=== PATIENT | male | born 1995 | race African-American/Black ===

== ENCOUNTER 2018-01-06 13:17 | Emergency (ER) | payer SELFPAY ==
[2018-01-06 13:23] VITALS: BP 116/76
[2018-01-06] MEDS ORDERED: OXYCODONE-ACETAMINOPHEN 5-325 MG TABLET PO ONE (13:34)
--- NOTE | 2018-01-06 13:35 | ER Document Report ---
ED Oral Problem - General Chief Complaint: Toothache Stated Complaint: TOOTH PAIN Time Seen by Provider: 01/06/18 13:28 Mode of Arrival: Ambulatory Information source: Patient Notes: Patient is a 22-year-old male who presents to the ER today for left lower wisdom tooth pain. Patient states that it has been broken for approximately 9 months. He admits to pain, denies any swelling, drainage from the area. He states that he came here to have it pulled as he does not have dental insurance. He denies any fevers or chills. TRAVEL OUTSIDE OF THE [place] IN LAST 30 DAYS: No - Related Data Allergies/Adverse Reactions: hydrocodone [Hydrocodone] Allergy (Verified 01/06/18 13:18) Nausea Past Medical History - General Information source: Patient - Social History Smoking Status: Unknown if Ever Smoked Family History: Reviewed & Not Pertinent - Immunizations Hx Diphtheria, Pertussis, Tetanus Vaccination: Yes Review of Systems - Review of Systems Constitutional: No symptoms reported EENT: See HPI Cardiovascular: No symptoms reported Respiratory: No symptoms reported Gastrointestinal: No symptoms reported Genitourinary: No symptoms reported Male Genitourinary: No symptoms reported Musculoskeletal: No symptoms reported Skin: No symptoms reported Hematologic/Lymphatic: No symptoms reported Neurological/Psychological: No symptoms reported Physical Exam - Vital signs Vitals: Temp Pulse Resp BP Pulse Ox 98.7 F 67 14 116/76 98 01/06/18 13:22 01/06/18 13:22 01/06/18 13:22 01/06/18 13:22 01/06/18 13:22 - Notes Notes: PHYSICAL EXAMINATION: GENERAL: Well-appearing and in no acute distress. HEAD: Atraumatic, normocephalic. EYES: Pupils equal round and reactive to light, extraocular movements intact, sclera anicteric, conjunctiva are normal. ENT: ear canals without erythema or foreign body, TMs pearly valladares with good bony landmarks, nares patent, oropharynx clear without exudates. Moist mucous membranes. Poor dentition, fractured tooth #18 NECK: Normal range of motion, supple without lymphadenopathy LUNGS: CTAB and equal. No wheezes rales or rhonchi. HEART: Regular rate and rhythm without murmurs EXTREMITIES: Normal range of motion, no pitting edema. No cyanosis. NEUROLOGICAL: Cranial nerves grossly intact. Normal sensory/motor exams. PSYCH: Normal mood, normal affect. SKIN: Warm, Dry, normal turgor, no rashes or lesions noted Course - Re-evaluation Re-evalutation: 01/06/18 14:48 I did advise patient that we are not a dentist and cannot pull teeth. He seemed confused at first. I did provide him information for the [facility] and advised him to follow-up there. He agrees with plan. I will place him on antibiotics and provide him with anti-inflammatories for pain. - Vital Signs Vital signs: Temp Pulse Resp BP Pulse Ox 98.7 F 67 14 116/76 98 01/06/18 13:22 01/06/18 13:22 01/06/18 13:22 01/06/18 13:22 01/06/18 13:22 Discharge - Discharge Clinical Impression: Pain, dental Condition: Stable Disposition: HOME, SELF-CARE Additional Instructions: Return immediately for any new or worsening symptoms. Follow up with dentist, call tomorrow to make followup appointment. Prescriptions: Amoxicillin 500 mg PO TID #30 capsule Ibuprofen [Motrin 800 mg Tablet] 800 mg PO Q8H PRN #30 tab PRN Reason: Referrals: [facility] [Provider Group] - Follow up as needed
== END 2018-01-06 13:43 | disposition home or self-care (01) ==
LOC: ER 13:17
DX: K08.89 Other specified disorders of teeth and supporting structures (principal); Z88.5 Allergy status to narcotic agent
CPT/HCPCS: 99282

== ENCOUNTER 2018-02-01 18:23 | Emergency (ER) | payer SELFPAY ==
[2018-02-01] MEDS ORDERED: LORATADINE 10 MG TABLET PO ONE (18:43)
--- NOTE | 2018-02-01 18:45 | ER Document Report ---
ED Skin Rash/Insect Bite/Abscs - General Chief Complaint: Rash Stated Complaint: RASH Time Seen by Provider: 02/01/18 18:36 Mode of Arrival: Ambulatory Information source: Patient TRAVEL OUTSIDE OF THE [place] IN LAST 30 DAYS: No - HPI Patient complains to provider of: Skin rash/lesion Notes: Patient is here with complaints of itching. The patient was seen early last month for her left lower dental pain. He was prescribed penicillin. He finally got it filled about a week ago and started taking it. States that yesterday he started to have some itching and a rash. States that the rash seems to be worse and more itchy when he is around heat. No difficulty breathing or swallowing. No abdominal pain. No nausea, vomiting, diarrhea. No chest pain or shortness of breath. He denies taking any daily medications. He denies any chronic health issues. He has not taken any other medications. He denies any difficulty breathing or swallowing. He has no other complaints at this time. - Related Data Allergies/Adverse Reactions: No Known Allergies Allergy (Verified 02/01/18 18:28) Past Medical History - Social History Smoking Status: Unknown if Ever Smoked Family History: Reviewed & Not Pertinent Renal/ Medical History: Denies: Hx Peritoneal Dialysis - Immunizations Hx Diphtheria, Pertussis, Tetanus Vaccination: Yes Review of Systems - Review of Systems -: Yes All other systems reviewed and negative Physical Exam - Vital signs Vitals: Temp Pulse Resp BP Pulse Ox 99.1 F 74 18 140/78 H 95 02/01/18 18:28 02/01/18 18:28 02/01/18 18:28 02/01/18 18:28 02/01/18 18:28 - Notes Notes: GENERAL: alert, cooperative, nontoxic, no distress. HEAD: normocephalic, atraumatic EYES: conjunctiva pink without discharge, no external redness or swelling. EARS: no external swelling, no external redness NOSE: atraumatic, no external swelling MOUTH/THROAT: mucous membranes moist and pink, posterior pharynx without erythema, swelling, exudate. No trismus or drooling. NECK: soft, supple, full range of motion, no meningismus. CHEST: no distress, lungs clear and equal throughout. No wheezing, rales, rhonchi. CARDIAC: regular rate and rhythm, no murmur, normal capillary refill, normal pulses. No peripheral edema noted. ABDOMEN: Soft, nontender. BACK: full range of motion, no CVA tenderness. EXTREMITIES: full range of motion of all extremities. No redness, no swelling. NEURO: alert and oriented x 3, no focal deficits, full range of motion of all extremities. PYSCH: appropriate mood, affect. Patient is cooperative. SKIN: pink, warm, dry, petechial rash in a linear fashion to the arms, chest, abdomen, back consistent with scratching. No purpura. No vesicles. Course - Re-evaluation Re-evalutation: 02/01/18 19:28 Patient is nontoxic appearing with stable vitals. Here with complaints of itching. Started penicillin 6 days ago states that he started itching yesterday. Patient is noted to have some petechial lesions in a linear fashion consistent with scratching hard. I did order a CBC and coags to ensure that there was no coagulopathy or thrombocytopenia taking place at this time. Lab work is unremarkable. Patient is potentially have an allergic reaction to the penicillin. I instructed him to stop taking the penicillin. He has no obvious signs of infection at this time, therefore do not believe any further antibiotics are needed. He will be given prednisone for the next few days as well as instructed to take an antihistamine like Benadryl or Claritin for itching. Follow-up if not improving in the next 3-5 days, sooner for worsening symptoms, high fever, difficulty breathing or swallowing, or for any further concerns. The patient is noted to have elevated blood pressure during today's emergency department visit. The patient was informed of this finding. The patient was instructed that this may be related to pre-hypertension and requires further evaluation with a primary care provider. The patient has no hypertensive symptoms at this time. The patient's emergency department workup and current diagnosis were explained to the patient and or family. Follow-up instructions were provided. Medications if prescribed were discussed. Instructions for when to return to the emergency department including specific worrisome symptoms were discussed with the patient and/or family. - Vital Signs Vital signs: Temp Pulse Resp BP Pulse Ox 99.1 F 74 18 140/78 H 95 02/01/18 18:28 02/01/18 18:28 02/01/18 18:28 02/01/18 18:28 02/01/18 18:28 - Laboratory Result Diagrams: 02/01/18 18:50 Laboratory results interpreted by me: 02/01/18 18:50 RBC 5.62 H RDW 14.2 H Discharge - Discharge Clinical Impression: Allergic reaction Qualifiers: Encounter type: initial encounter Qualified Code(s): T78.40XA - Allergy, unspecified, initial encounter Condition: Stable Disposition: HOME, SELF-CARE Instructions: Acute Allergic Reaction ([facility]) Additional Instructions: Stop taking the antibiotics. Take medications as prescribed. Take over-the- counter Benadryl or Claritin as directed. Follow-up if not better in 3-5 days, sooner for worsening symptoms, high fever, difficulty breathing or swallowing, or for any further concerns. Prescriptions: Prednisone [Deltasone 20 mg Tablet] 3 tab PO DAILY 5 Days tablet Forms: Elevated Blood Pressure, Smoking Cessation Education Referrals: [facility] [Provider Group] - Follow up as needed
[2018-02-01 19:06] LABS: ABSOLUTE EOSINOPHILS # (AUTO) 0.5 10^3/uL (0.0-0.6); ABSOLUTE LYMPHOCYTES (AUTO) 2.3 10^3/uL (0.5-4.7); ABSOLUTE MONOCYTES (AUTO) 0.9 10^3/uL (0.1-1.4); ABSOLUTE NEUT (AUTO) 5.5 10^3/uL (1.7-8.2); BASOPHILS % (AUTO) 0.5 % (0-2); EOSINOPHILS % (AUTO) 5.6 % (0-6); HEMATOCRIT 47.2 % (37.9-51.0); HEMOGLOBIN 16.3 g/dL (13.5-17.0); LYMPHOCYTES % (AUTO) 24.6 % (13-45); MEAN CORPUSCULAR HEMOGLOBIN 28.9 pg (27.0-33.4); MEAN CORPUSCULAR HGB CONC 34.5 g/dL (32.0-36.0); MEAN CORPUSCULAR VOLUME 84 fl (80-97); MONOCYTES % (AUTO) 9.6 % (3-13); PLATELET COUNT 233 10^3/uL (150-450); RED BLOOD COUNT 5.62 10^6/uL (4.35-5.55); RED CELL DISTRIBUTION WIDTH 14.2 % (11.5-14.0); SEGMENTED NEUTROPHILS % (AUTO) 59.7 % (42-78); TOTAL CELLS COUNTED % (AUTO) 100 %; WHITE BLOOD COUNT 9.2 10^3/uL (4.0-10.5)
[2018-02-01 19:12] LABS: INTERNATIONAL RATION (INR) 1.01; PROTHROMBIN TIME 13.8 SEC (11.4-15.4)
[2018-02-01 19:13] LABS: PARTIAL THROMBOPLASTIN TIME 29.3 SEC (23.5-35.8)
[2018-02-01] MEDS ORDERED: PREDNISONE 20 MG TABLET PO ONE (19:29)
[2018-02-01 20:06] VITALS: BP 136/84
== END 2018-02-01 20:15 | disposition home or self-care (01) ==
LOC: ER 18:23
DX: T78.40XA Allergy, unspecified, initial encounter (principal); L29.9 Pruritus, unspecified; X58.XXXA Exposure to other specified factors, initial encounter; R23.3 Spontaneous ecchymoses; R03.0 Elevated blood-pressure reading, without diagnosis of hypertension
CPT/HCPCS: 99283; 36415; 85025; 85610; 85730; J7512

== ENCOUNTER 2018-02-06 11:59 | Emergency (ER) | payer SELFPAY ==
[2018-02-06 12:12] VITALS: BP 109/68
--- NOTE | 2018-02-06 12:13 | ER Document Report ---
HPI - HPI Patient complains to provider of: tooth pain Onset: Last week Onset/Duration: Gradual Pain Level: 4 Context: 22 yo male with throbbing tooth pain. No swelling. Associated Symptoms: None Exacerbated by: Denies Relieved by: Denies Similar symptoms previously: Yes Recently seen / treated by doctor: No - ROS ROS below otherwise negative: Yes Systems Reviewed and Negative: Yes All other systems reviewed and negative Past Medical History - General Information source: Patient - Social History Smoking Status: Current Every Day Smoker Frequency of alcohol use: None Drug Abuse: None Lives with: Family Family History: Reviewed & Not Pertinent - Medical History Medical History: Negative Renal/ Medical History: Denies: Hx Peritoneal Dialysis Surgical Hx: Negative - Immunizations Hx Diphtheria, Pertussis, Tetanus Vaccination: Yes Vertical Provider Document - CONSTITUTIONAL Agree With Documented VS: Yes Exam Limitations: No Limitations General Appearance: No Apparent Distress - INFECTION CONTROL TRAVEL OUTSIDE OF THE [place] IN LAST 30 DAYS: No - HEENT HEENT: Normocephalic Notes: 3rd left lower molar dental decay with inflamed gingiva. no abscess - MUSCULOSKELETAL/EXTREMETIES Musculoskeletal/Extremeties: MAEW - NEURO Level of Consciousness: Awake - DERM Integumentary: No Rash Course - Vital Signs Vital signs: Temp Pulse Resp BP Pulse Ox 98.9 F 65 16 109/68 95 02/06/18 12:10 02/06/18 12:10 02/06/18 12:10 02/06/18 12:10 02/06/18 12:10 Discharge - Discharge Clinical Impression: 3rd left molar decay/pain Condition: Good Disposition: HOME, SELF-CARE Instructions: [facility], Clindamycin (COUNTS INCLUDE 234 BEDS AT THE [facility]), Dentist, Ibuprofen ( General) (COUNTS INCLUDE 234 BEDS AT THE [facility]), Toothache (COUNTS INCLUDE 234 BEDS AT THE [facility]) Additional Instructions: warm compress clindamycin see the dentist motrin tylenol Prescriptions: Ibuprofen [Motrin 800 mg Tablet] 800 mg PO Q8HP PRN #30 tablet PRN Reason: Clindamycin HCl [Cleocin 150 mg Capsule] 300 mg PO TID #42 capsule Forms: Return to Work
[2018-02-06] MEDS ORDERED: IBUPROFEN 800 MG TABLET PO ONE (12:33)
== END 2018-02-06 12:37 | disposition home or self-care (01) ==
LOC: ER 11:59
DX: K02.9 Dental caries, unspecified (principal); K08.89 Other specified disorders of teeth and supporting structures; F17.200 Nicotine dependence, unspecified, uncomplicated
CPT/HCPCS: 99282

== ENCOUNTER 2018-04-07 05:07 | Emergency (ER) | payer SELFPAY ==
[2018-04-07 05:52] LABS: APPEARANCE,URINE CLEAR; BILIRUBIN,URINE NEGATIVE (NEGATIVE); COLOR,URINE YELLOW; GLUCOSE, URINE NEGATIVE (NEGATIVE); KETONES,URINE NEGATIVE (NEGATIVE); LEUKOCYTE ESTERASE,URINE MODERATE (NEGATIVE); NITRITE,URINE NEGATIVE (NEGATIVE); PROTEIN,URINE NEGATIVE (NEGATIVE)
--- NOTE | 2018-04-07 06:26 | ER Document Report ---
ED General - General Chief Complaint: Urinary Problem Stated Complaint: POSSIBLE UTI Time Seen by Provider: 04/07/18 06:21 Mode of Arrival: Ambulatory Information source: Patient Notes: 23-year-old male presents emergency department with complaints of dysuria, penile discharge, pruritus for the last 2 weeks. Patient states that he followed up at the health department and was given an antibiotic there. He states that he took 1 dose at the health department and was not prescribed a prescription. He does not know what he is being treated for. Patient states that he is not concerned about any sexually transmitted diseases. He states that he does not have a history of sexually transmitted diseases. He denies any abdominal pain, nausea, vomiting, diarrhea, constipation, testicular pain. TRAVEL OUTSIDE OF THE [place] IN LAST 30 DAYS: No - HPI Onset: Other - 2 weeks Onset/Duration: Sudden Quality of pain: Burning Severity: Mild Associated symptoms: None Exacerbated by: Denies Relieved by: Denies Similar symptoms previously: Yes Recently seen / treated by doctor: Yes - Related Data Allergies/Adverse Reactions: amoxicillin Allergy (Intermediate, Verified 02/06/18 12:03) Urticaria Past Medical History - Social History Smoking Status: Current Every Day Smoker Frequency of alcohol use: None Drug Abuse: None Family History: Reviewed & Not Pertinent Patient has suicidal ideation: No Patient has homicidal ideation: No Renal/ Medical History: Denies: Hx Peritoneal Dialysis - Immunizations Hx Diphtheria, Pertussis, Tetanus Vaccination: Yes Review of Systems - Review of Systems Constitutional: No symptoms reported EENT: No symptoms reported Cardiovascular: No symptoms reported Respiratory: No symptoms reported Gastrointestinal: No symptoms reported Genitourinary: Burning, Dysuria Male Genitourinary: Penile discharge Musculoskeletal: No symptoms reported Skin: No symptoms reported Hematologic/Lymphatic: No symptoms reported Neurological/Psychological: No symptoms reported -: Yes All other systems reviewed and negative Physical Exam - Vital signs Vitals: Temp Pulse Resp BP Pulse Ox 99.0 F 73 20 131/85 H 98 04/07/18 05:12 04/07/18 05:12 04/07/18 05:12 04/07/18 05:12 04/07/18 05:12 Interpretation: Normal - Notes Notes: PHYSICAL EXAMINATION: GENERAL: Well-appearing, well-nourished and in no acute distress. HEAD: Atraumatic, normocephalic. EYES: Pupils equal round and reactive to light, extraocular movements intact, sclera anicteric, conjunctiva are normal. ENT: Nares patent, oropharynx clear without exudates. Moist mucous membranes. NECK: Normal range of motion, supple without lymphadenopathy LUNGS: Breath sounds clear to auscultation bilaterally and equal. No wheezes rales or rhonchi. HEART: Regular rate and rhythm without murmurs ABDOMEN: Soft, nontender, nondistended abdomen. No guarding, no rebound. No masses appreciated. Musculoskeletal: Normal range of motion, no pitting or edema. No cyanosis. Genital: No ulcerations appreciated. No penile discharge. No testicular tenderness to palpation. NEUROLOGICAL: Cranial nerves grossly intact. Normal speech, normal gait. Normal sensory, motor exams PSYCH: Normal mood, normal affect. SKIN: Warm, Dry, normal turgor, no rashes or lesions noted. Course - Re-evaluation Re-evalutation: 04/07/18 06:30 Patient's history concerning for STDs. Treated for gonorrhea and chlamydia while in the emergency department. I will discharge patient home on doxycycline for a urinary tract infection/ sexually transmitted disease. Patient instructed to take the medication as directed, to follow-up with his primary care physician this week, and to return to the emergency department for worsening symptoms. Patient is agreeable with plan of care. 04/07/18 06:36 - Vital Signs Vital signs: Temp Pulse Resp BP Pulse Ox 99.0 F 73 20 131/85 H 98 04/07/18 05:12 04/07/18 05:12 04/07/18 05:12 04/07/18 05:12 04/07/18 05:12 - Laboratory Laboratory results interpreted by me: 04/07/18 05:30 Urine Urobilinogen 4.0 H Ur Leukocyte Esterase MODERATE H Urine Ascorbic Acid 40 H Discharge - Discharge Clinical Impression: Urinary tract infection Qualifiers: Urinary tract infection type: urethritis Qualified Code(s): N34.2 - Other urethritis Condition: Good Disposition: HOME, SELF-CARE Instructions: Pelvic Inflammatory Disease ([facility]), Urinary Tract Infection ([facility]) Prescriptions: Doxycycline Hyclate 100 mg PO BID #14 capsule Referrals: [facility] [Primary Care Provider] - Follow up as needed
[2018-04-07] MEDS ORDERED: CEFTRIAXONE INJ 250 MG VIAL IM ONE (06:28)
[2018-04-07] MEDS ORDERED: AZITHROMYCIN 1 GM SUSP PACKET PO ONE (06:30)
[2018-04-07] MEDS ORDERED: METOPROLOL TARTRATE PF/INJ 5 MG/5 ML SDV IV ONE (06:45)
[2018-04-07] MEDS ORDERED: LIDOCAINE 1% INJ-PF (10 MG/ML) 30 ML SDV ONE (07:02)
[2018-04-07 07:19] LABS: CHLAM PCR NOT DETECTED (NOT DETECT); GON PCR NOT DETECTED (NOT DETECT)
[2018-04-07 07:25] VITALS: BP 116/66
== END 2018-04-07 07:24 | disposition home or self-care (01) ==
LOC: ER 05:07
DX: N34.2 Other urethritis (principal); R30.0 Dysuria; R36.9 Urethral discharge, unspecified; L29.9 Pruritus, unspecified; F17.200 Nicotine dependence, unspecified, uncomplicated
CPT/HCPCS: 99283; 96372; 81001; 87491; 87591; J0696

== ENCOUNTER 2018-04-23 14:07 | Emergency (ER) | payer SELFPAY ==
[2018-04-23] MEDS ORDERED: ONDANSETRON 4 MG TAB.RAPDIS PO ONE (15:39)
[2018-04-23 16:07] LABS: ABSOLUTE BASOPHILS # (AUTO) 0.1 10^3/uL (0.0-0.2); ABSOLUTE LYMPHOCYTES (AUTO) 1.3 10^3/uL (0.5-4.7); ABSOLUTE MONOCYTES (AUTO) 1.1 10^3/uL (0.1-1.4); BASOPHILS % (AUTO) 0.4 % (0-2); EOSINOPHILS % (AUTO) 0.2 % (0-6); HEMATOCRIT 47.9 % (37.9-51.0); HEMOGLOBIN 16.4 g/dL (13.5-17.0); LYMPHOCYTES % (AUTO) 10.4 % (13-45); MEAN CORPUSCULAR HEMOGLOBIN 28.9 pg (27.0-33.4); MEAN CORPUSCULAR HGB CONC 34.2 g/dL (32.0-36.0); MEAN CORPUSCULAR VOLUME 85 fl (80-97); MONOCYTES % (AUTO) 8.8 % (3-13); PLATELET COUNT 252 10^3/uL (150-450); RED BLOOD COUNT 5.67 10^6/uL (4.35-5.55); SEGMENTED NEUTROPHILS % (AUTO) 80.2 % (42-78); TOTAL CELLS COUNTED % (AUTO) 100 %; WHITE BLOOD COUNT 12.5 10^3/uL (4.0-10.5)
[2018-04-23 16:24] LABS: ALANINE AMINOTRANSFERASE 24 U/L (21-72); ALKALINE PHOSPHATASE 73 U/L (38-126); ANION GAP 19 (5-19); ASPARTATE AMINO TRANSFERASE 26 U/L (17-59); BILIRUBIN,DIRECT 0.2 mg/dL (0.0-0.4); BILIRUBIN,TOTAL 0.6 mg/dL (0.2-1.3); BLOOD UREA NITROGEN 13 mg/dL (7-20); CALCIUM 10.6 mg/dL (8.4-10.2); CARBON DIOXIDE 22 mmol/L (22-30); CHLORIDE 104 mmol/L (98-107); GLUCOSE 111 mg/dL (75-110); LIPASE 157.7 U/L (23-300); POTASSIUM 3.6 mmol/L (3.6-5.0); SODIUM 145.4 mmol/L (137-145); TOTAL PROTEIN 8.8 g/dL (6.3-8.2)
[2018-04-23 16:26] LABS: ALCOHOL < 10 mg/dL (NONE DETECTED)
[2018-04-23 16:35] LABS: APPEARANCE,URINE SLIGHTLY-CLOUDY; BILIRUBIN,URINE SMALL (NEGATIVE); COLOR,URINE YELLOW; GLUCOSE, URINE NEGATIVE (NEGATIVE); KETONES,URINE TRACE mg/dL (NEGATIVE); LEUKOCYTE ESTERASE,URINE NEGATIVE (NEGATIVE); NITRITE,URINE NEGATIVE (NEGATIVE); PROTEIN,URINE >=500 mg/dL (NEGATIVE); URINE SPECIFIC GRAVITY 1.028
[2018-04-23 16:47] LABS: URINE AMPHETAMINES SCREEN UNCONFIRMED POSITIVE; URINE BARBITURATES SCREEN NEGATIVE; URINE BENZODIAZEPINES SCREEN NEGATIVE; URINE COCAINE SCREEN NEGATIVE; URINE MARIJUANA (THC) SCREEN UNCONFIRMED POSITIVE; URINE METHADONE SCREEN NEGATIVE; URINE PHENCYCLIDINE SCREEN NEGATIVE
--- NOTE | 2018-04-23 17:28 | ER Document Report ---
ED General - General Chief Complaint: Nausea/Vomiting Stated Complaint: VOMITING Time Seen by Provider: 04/23/18 15:35 TRAVEL OUTSIDE OF THE [place] IN LAST 30 DAYS: No - HPI Patient complains to provider of: Nausea vomiting Notes: Patient coming in for evaluation of nausea vomiting. Patient states feels like his body is trying to give up on difficulty breathing weakness difficulty in walking. Patient states he was brought to the ER by her friend. Patient states that prior to drink 2 bottles of liquor states he did share this with her friend. Patient denies any smoking denies any other drug abuse. Patient is sitting in a wheelchair. Patient has become very upset and mass in question state that I am not expecting and I am mocking him patient initially looks to be feigning lethargy however when patient becomes upset is able to move all 4 extremities and seems to be more lively. - Related Data Allergies/Adverse Reactions: amoxicillin Allergy (Intermediate, Verified 04/23/18 14:08) Urticaria Past Medical History - Social History Smoking Status: Unknown if Ever Smoked Chew tobacco use (# tins/day): No Frequency of alcohol use: Occasional Drug Abuse: Marijuana Family History: Reviewed & Not Pertinent Patient has suicidal ideation: No Patient has homicidal ideation: No Renal/ Medical History: Denies: Hx Peritoneal Dialysis - Immunizations Hx Diphtheria, Pertussis, Tetanus Vaccination: Yes Review of Systems - Review of Systems Constitutional: No symptoms reported EENT: No symptoms reported Cardiovascular: No symptoms reported Respiratory: No symptoms reported Gastrointestinal: Nausea, Vomiting Genitourinary: No symptoms reported Male Genitourinary: No symptoms reported Musculoskeletal: No symptoms reported Skin: No symptoms reported Hematologic/Lymphatic: No symptoms reported Neurological/Psychological: No symptoms reported -: Yes All other systems reviewed and negative Physical Exam - Vital signs Vitals: Temp Resp BP 98.3 F 22 H 124/75 04/23/18 14:19 04/23/18 14:19 04/23/18 14:19 Interpretation: Normal - General General appearance: Appears well, Alert - HEENT Head: Normocephalic, Atraumatic Eyes: Normal Pupils: PERRL - Respiratory Respiratory status: No respiratory distress Chest status: Nontender Breath sounds: Normal Chest palpation: Normal - Cardiovascular Rhythm: Regular Heart sounds: Normal auscultation Murmur: No - Abdominal Inspection: Normal Distension: No distension Bowel sounds: Normal Tenderness: Nontender Organomegaly: No organomegaly - Back Back: Normal, Nontender - Extremities General upper extremity: Normal inspection, Nontender, Normal color, Normal ROM , Normal temperature General lower extremity: Normal inspection, Nontender, Normal color, Normal ROM , Normal temperature, Normal weight bearing. No: Keerthi's sign - Neurological Neuro grossly intact: Yes Cognition: Normal Orientation: AAOx4 Radha Coma Scale Eye Opening: Spontaneous [place] Coma Scale Verbal: Oriented [place] Coma Scale Motor: Obeys Commands [place] Coma Scale Total: 15 Speech: Normal Motor strength normal: LUE, RUE, LLE, RLE Sensory: Normal - Psychological Associated symptoms: Normal affect, Normal mood - Skin Skin Temperature: Warm Skin Moisture: Dry Skin Color: Normal Course - Re-evaluation Re-evalutation: 04/23/18 20:31 Laboratory studies suggestive of slight dehydration with hypernatremia. Toxicology screen is some return positive for marijuana and amphetamines. Patient initially denies marijuana did states he does smoke marijuana last night denies any amphetamines. More likely patient's symptoms are due to his admitted alcohol abuse marijuana abuse and possibly amphetamine use in the last 24 hours. Patient otherwise tolerated a bottle of water while waiting for his lab results noted vomiting episodes patient will be discharged home with Lang and Renuka for his nausea control. - Vital Signs Vital signs: Temp Pulse Resp BP Pulse Ox 99.0 F 63 20 141/70 H 100 04/23/18 17:42 04/23/18 17:42 04/23/18 17:42 04/23/18 17:42 04/23/18 17:42 - Laboratory Result Diagrams: 04/23/18 15:45 04/23/18 15:45 Laboratory results interpreted by me: 04/23/18 04/23/18 04/23/18 15:45 15:45 16:00 WBC 12.5 H RBC 5.67 H Seg Neutrophils % 80.2 H Lymphocytes % 10.4 L Absolute Neutrophils 10.0 H Sodium 145.4 H Glucose 111 H Calcium 10.6 H Total Protein 8.8 H Urine Protein >=500 H Urine Ketones TRACE H Urine Bilirubin SMALL H Urine Urobilinogen 2.0 H Discharge - Discharge Clinical Impression: Nausea & vomiting Qualifiers: Vomiting type: unspecified Vomiting Intractability: unspecified Qualified Code( s): R11.2 - Nausea with vomiting, unspecified Condition: Good Disposition: HOME, SELF-CARE Instructions: Reglan ([facility]), Vomiting ([facility]) Additional Instructions: Your laboratory results today did not show any signs can pathology causing your nausea and vomiting. No signs of infection requiring antibiotics there is no signs of any surgical pathology causing her symptoms. Would highly recommend she follow-up with your primary care physician. Please avoid alcohol in excess. There is also signs of marijuana and amphetamines in your testing today. I would also avoid these medications or drugs is that they can cause nausea vomiting. Please take the Zofran for nausea if this is not working to control your nausea I would also recommend taking Reglan. Return to ER symptoms worsen follow-up with your primary care physician. Prescriptions: Metoclopramide HCl [Reglan] 5 mg PO Q6 #30 tablet Ondansetron [Zofran Odt] 4 mg PO Q6 PRN #30 tab.rapdis PRN Reason: For Nausea/Vomiting Forms: Return to Work
[2018-04-23 17:43] VITALS: BP 141/70
== END 2018-04-23 17:48 | disposition home or self-care (01) ==
LOC: ER 14:07
DX: R11.2 Nausea with vomiting, unspecified (principal)
CPT/HCPCS: 99284; 36415; 80307 ×2; 83690; 85025; 80053; 81001; S0119

== ENCOUNTER 2018-04-27 04:45 | Emergency (ER) | payer SELFPAY ==
--- NOTE | 2018-04-27 05:48 | ER Document Report ---
ED Medical Screen (RME) - General Chief Complaint: Abdominal Pain Stated Complaint: ABDOMINAL PAIN Time Seen by Provider: 04/27/18 05:47 Notes: Abdominal pain. Seen at an [facility] yesterday and told his pancreatic enzymes were elevated. Seen here 4 days ago with a normal lipase. TRAVEL OUTSIDE OF THE [place] IN LAST 30 DAYS: No - Related Data Allergies/Adverse Reactions: amoxicillin Allergy (Intermediate, Verified 04/23/18 14:08) Urticaria Past Medical History Renal/ Medical History: Denies: Hx Peritoneal Dialysis - Immunizations Hx Diphtheria, Pertussis, Tetanus Vaccination: Yes
[2018-04-27 06:08] LABS: ABSOLUTE EOSINOPHILS # (AUTO) 0.7 10^3/uL (0.0-0.6); ABSOLUTE MONOCYTES (AUTO) 0.7 10^3/uL (0.1-1.4); ABSOLUTE NEUT (AUTO) 5.4 10^3/uL (1.7-8.2); BASOPHILS % (AUTO) 0.5 % (0-2); EOSINOPHILS % (AUTO) 7.8 % (0-6); HEMATOCRIT 46.1 % (37.9-51.0); HEMOGLOBIN 16.1 g/dL (13.5-17.0); MEAN CORPUSCULAR HEMOGLOBIN 29.6 pg (27.0-33.4); MEAN CORPUSCULAR VOLUME 85 fl (80-97); MONOCYTES % (AUTO) 8.1 % (3-13); PLATELET COUNT 231 10^3/uL (150-450); RED BLOOD COUNT 5.44 10^6/uL (4.35-5.55); RED CELL DISTRIBUTION WIDTH 13.9 % (11.5-14.0); SEGMENTED NEUTROPHILS % (AUTO) 61.6 % (42-78); TOTAL CELLS COUNTED % (AUTO) 100 %; WHITE BLOOD COUNT 8.8 10^3/uL (4.0-10.5)
--- NOTE | 2018-04-27 06:16 | ER Document Report ---
ED GI/ - General Chief Complaint: Abdominal Pain Stated Complaint: ABDOMINAL PAIN Time Seen by Provider: 04/27/18 05:47 Notes: 23-year-old male to the emergency department complaining of abdominal pain. Patient states that he has been having abdominal pain for about 2 weeks. Off and on. Located in the left upper quadrant. Has had multiple ER visits. Was seen in the ER in [place] yesterday. Still continues to have pain in the left upper quadrant. States that he was drinking a lot and it seemed to make it worse. Was told in [place] that he may have pancreatitis. States that he hyperventilated this morning because he is nervous about what is going on. No other issues otherwise TRAVEL OUTSIDE OF THE [place] IN LAST 30 DAYS: No - HPI Patient complains to provider of: Abdominal pain Onset: Last week - Related Data Allergies/Adverse Reactions: amoxicillin Allergy (Intermediate, Verified 04/23/18 14:08) Urticaria Past Medical History - General Information source: Patient - Social History Smoking Status: Current Some Day Smoker Cigarette use (# per day): Yes Frequency of alcohol use: Occasional Drug Abuse: None Lives with: Alone Family History: Reviewed & Not Pertinent Renal/ Medical History: Denies: Hx Peritoneal Dialysis - Immunizations Hx Diphtheria, Pertussis, Tetanus Vaccination: Yes Review of Systems - Review of Systems Constitutional: No symptoms reported EENT: No symptoms reported Cardiovascular: No symptoms reported Respiratory: No symptoms reported Gastrointestinal: Abdominal pain. denies: Diarrhea, Nausea, Vomiting Genitourinary: No symptoms reported Male Genitourinary: No symptoms reported Musculoskeletal: No symptoms reported Skin: No symptoms reported Hematologic/Lymphatic: No symptoms reported Neurological/Psychological: See HPI, Anxiety, Sensory change, Numbness, Tingling Physical Exam - Vital signs Interpretation: Normal - General General appearance: Appears well, Alert - HEENT Head: Normocephalic, Atraumatic Eyes: Normal Pupils: PERRL - Respiratory Respiratory status: No respiratory distress Chest status: Nontender Breath sounds: Normal Chest palpation: Normal - Cardiovascular Rhythm: Regular Heart sounds: Normal auscultation Murmur: No - Abdominal Inspection: Normal Distension: No distension Bowel sounds: Normal Tenderness: Tender - Tenderness to palpation the left upper quadrant. Organomegaly: No organomegaly - Back Back: Normal, Nontender - Extremities General upper extremity: Normal inspection, Nontender, Normal color, Normal ROM , Normal temperature General lower extremity: Normal inspection, Nontender, Normal color, Normal ROM , Normal temperature, Normal weight bearing. No: Keerthi's sign - Neurological Neuro grossly intact: Yes Cognition: Normal Orientation: AAOx4 Radha Coma Scale Eye Opening: Spontaneous Radha Coma Scale Verbal: Oriented [place] Coma Scale Motor: Obeys Commands [place] Coma Scale Total: 15 Speech: Normal Motor strength normal: LUE, RUE, LLE, RLE Sensory: Normal - Psychological Associated symptoms: Normal affect, Normal mood - Skin Skin Temperature: Warm Skin Moisture: Dry Skin Color: Normal Course - Re-evaluation Re-evalutation: 04/27/18 08:24 Labs are completely unremarkable. CT scan was performed based on multiple visits to the ER and he states that he had not had any imaging. CT scan was normal. Find nothing wrong at this time. Will DC shortly. - Laboratory Result Diagrams: 04/27/18 06:00 04/27/18 06:00 Laboratory results interpreted by me: 04/27/18 06:00 Eosinophils % 7.8 H Absolute Eosinophils 0.7 H Discharge - Discharge Clinical Impression: Left upper quadrant abdominal pain of unknown etiology Condition: Good Disposition: HOME, SELF-CARE Instructions: Abdominal Pain ([facility]) Additional Instructions: The CT scan of the abdomen, your labs and workup today were unremarkable. There does not appear to be any abnormalities today. If your symptoms persist or get worse over the next 24 hours please return for repeat evaluation or follow-up with a regular doctor. Follow-up information was given for general surgeon which may be able to help diagnose your abdominal pain as well. Prescriptions: Ketorolac Tromethamine [Toradol 10 mg Tablet] 10 mg PO Q6HP PRN 5 Days #20 tablet PRN Reason: Famotidine [Pepcid 20 mg Tablet] 20 mg PO BID 10 Days #20 tablet Referrals: LOCALMD,NO [Primary Care Provider] - Follow up as needed
[2018-04-27 06:24] LABS: ALANINE AMINOTRANSFERASE 32 U/L (21-72); ALBUMIN 4.5 g/dL (3.5-5.0); ALKALINE PHOSPHATASE 61 U/L (38-126); ANION GAP 11 (5-19); ASPARTATE AMINO TRANSFERASE 29 U/L (17-59); BILIRUBIN,DIRECT 0.3 mg/dL (0.0-0.4); BILIRUBIN,TOTAL 0.6 mg/dL (0.2-1.3); BLOOD UREA NITROGEN 16 mg/dL (7-20); CALCIUM 9.7 mg/dL (8.4-10.2); CARBON DIOXIDE 29 mmol/L (22-30); CHLORIDE 103 mmol/L (98-107); GLUCOSE 92 mg/dL (75-110); LIPASE 113.5 U/L (23-300); POTASSIUM 4.3 mmol/L (3.6-5.0); SODIUM 142.5 mmol/L (137-145); TOTAL PROTEIN 7.6 g/dL (6.3-8.2)
[2018-04-27] MEDS ORDERED: LORAZEPAM 0.5 MG TABLET PO ONE (06:28)
[2018-04-27] MEDS ORDERED: KETOROLAC TROMETHAMINE INJ/PF 30 MG/1 ML SDV IV ONE (06:28)
--- NOTE | 2018-04-27 08:17 | RADIOLOGY REPORT (SQ) ---
EXAM DESCRIPTION: CT ABD/PELVIS WITH IV ONLY COMPLETED DATE/TIME: 04/27/2018 7:57 am REASON FOR STUDY: abd pain 1 week getting worse [facility] COMPARISON: October 2014 TECHNIQUE: CT scan of the abdomen and pelvis performed using helical scanning technique with dynamic intravenous contrast injection. No oral contrast. Images reviewed with lung, soft tissue, and bone windows. Reconstructed coronal and sagittal MPR images reviewed. Delayed images for evaluation of the urinary system also acquired. All images stored on PACS. All CT scanners at this facility use dose modulation, iterative reconstruction, and/or weight based d osing when appropriate to reduce radiation dose to as low as reasonably achievable (ALARA). [facility]: Dose Right [facility]: CareDose [facility]: Dose Right [facility]: Teradose 4D [facility]: Drippler CONTRAST TYPE AND DOSE: contrast/concentration: Isovue 370.00 mg/ml; Total Contrast Delivered: 100.0 ml; Total Saline Delivered: 70.0 ml RENAL FUNCTION: Creatinine 1.1 RADIATION DOSE: CT Rad equipment meets quality standard of care and radiation dose reduction techniq ues were employed. CTDIvol: 7.7 - 11.2 mGy. DLP: 999 mGy-cm.. LIMITATIONS: None. FINDINGS: LOWER CHEST: No significant findings. No nodules or infiltrates. LIVER: Normal size. No masses. No dilated ducts. SPLEEN: Normal size. No focal lesions. PANCREAS: No masses. No significant calcifications. No adjacent inflammation or peripancreatic fluid collections. Pancreatic duct not dilated. GALLBLADDER: No identified stones by CT criteria. No inflammatory changes to suggest cholecystitis. ADRENAL GLANDS: No significant masses or asymmetry. RIGHT KIDNEY AND URETER: No solid masses. No significant calcifications. No hydronephrosis or hyd roureter. LEFT KIDNEY AND URETER: No solid masses. No significant calcifications. No hydronephrosis or hydr oureter. AORTA AND VESSELS: No aneurysm. No dissection. Renal arteries, SMA, celiac without stenosis. RETROPERITONEUM: No retroperitoneal adenopathy, hemorrhage or masses. BOWEL AND PERITONEAL CAVITY: No masses or inflammatory changes. No free fluid or peritoneal masses. APPENDIX: Normal. PELVIS: No mass. No free fluid. Normal bladder. ABDOMINAL WALL: No masses. No hernias. BONES: No significant or acute findings. OTHER: No other significant finding. IMPRESSION: NO SIGNIFICANT OR ACUTE FINDING IN THE ABDOMEN OR PELVIS ON CT SCAN WITH IV CONTRAST. TECHNICAL DOCUMENTATION: JOB ID: [id number] Quality ID # [id number]: Final reports with documentation of one or more dose reduction techniques (e.g., Au tomated exposure control, adjustment of the mA and/or kV according to patient size, use of iterative reconstruction technique) 2010 [employer]- All Rights Reserved Reading location - IP/workstation name: [email or web address]
[2018-04-27 08:23] LABS: AMORPHOUS SEDIMENT,URINE 1+ /HPF; APPEARANCE,URINE TURBID; BILIRUBIN,URINE NEGATIVE (NEGATIVE); COLOR,URINE YELLOW; GLUCOSE, URINE NEGATIVE (NEGATIVE); KETONES,URINE NEGATIVE (NEGATIVE); LEUKOCYTE ESTERASE,URINE NEGATIVE (NEGATIVE); NITRITE,URINE NEGATIVE (NEGATIVE); PROTEIN,URINE NEGATIVE (NEGATIVE); URINE SPECIFIC GRAVITY 1.021
--- NOTE | 2018-04-27 15:08 | EKG REPORT ---
SEVERITY:- NORMAL ECG - SINUS RHYTHM : Confirmed by: Tanya Christie MD 27-Apr-2018 15:07:57
== END 2018-04-27 08:38 | disposition home or self-care (01) ==
LOC: ER 04:45
DX: R10.12 Left upper quadrant pain (principal); F41.9 Anxiety disorder, unspecified; R20.0 Anesthesia of skin; R20.2 Paresthesia of skin; F17.210 Nicotine dependence, cigarettes, uncomplicated; Z88.0 Allergy status to penicillin
CPT/HCPCS: 93005; 99284; 96374; 36415; 80307; 83690; 85025; 80053; 81001; 74177; 93010; J1885

== ENCOUNTER 2018-05-16 18:40 | Emergency (ER) | payer SELFPAY ==
--- NOTE | 2018-05-16 20:29 | ER Document Report ---
ED Medical Screen (RME) - General Chief Complaint: Abdominal Pain Stated Complaint: PELVIC PAIN Time Seen by Provider: 05/16/18 20:25 Notes: 23-year-old male presents with 2 days of pelvic pain. He states his lower abdomen right above the base of his penis is hurting him. He does complain of some mild discomfort with urination. He denies penile discharge but just a generalized feeling of discomfort denies testicular pain. Denies any abdominal pain above his pelvis. Denies nausea vomiting denies fever chills. She has more of an aching pain and pressure. Does have a history of gonorrhea. TRAVEL OUTSIDE OF THE [place] IN LAST 30 DAYS: No - Related Data Allergies/Adverse Reactions: amoxicillin Allergy (Intermediate, Verified 05/16/18 20:16) Urticaria Past Medical History - Social History Frequency of alcohol use: None Drug Abuse: Marijuana Renal/ Medical History: Denies: Hx Peritoneal Dialysis - Immunizations Hx Diphtheria, Pertussis, Tetanus Vaccination: Yes Physical Exam - Vital signs Vitals: Temp Pulse Resp BP Pulse Ox 98.5 F 66 18 136/74 H 100 05/16/18 18:47 05/16/18 18:47 05/16/18 18:47 05/16/18 18:47 05/16/18 18:47 - Notes Notes: Abdomen is soft and supple there is some mild suprapubic discomfort but overall it is soft and supple without rebound or guarding there is no tenderness McBurney's point. Course - Re-evaluation Re-evalutation: 05/16/18 20:29 Will do urinalysis and urine gonorrhea. We will await the results. In triage examination - Vital Signs Vital signs: Temp Pulse Resp BP Pulse Ox 98.5 F 66 18 136/74 H 100 05/16/18 18:47 05/16/18 18:47 05/16/18 18:47 05/16/18 18:47 05/16/18 18:47 Doctor's Discharge - Discharge Referrals: KALEN,NO [Primary Care Provider] - Follow up as needed
[2018-05-16 21:27] LABS: AMORPHOUS SEDIMENT,URINE TRACE /HPF; APPEARANCE,URINE CLOUDY; BILIRUBIN,URINE NEGATIVE (NEGATIVE); COLOR,URINE YELLOW; GLUCOSE, URINE NEGATIVE (NEGATIVE); KETONES,URINE NEGATIVE (NEGATIVE); LEUKOCYTE ESTERASE,URINE NEGATIVE (NEGATIVE); NITRITE,URINE NEGATIVE (NEGATIVE); PROTEIN,URINE 30 mg/dL (NEGATIVE); URINE SPECIFIC GRAVITY 1.027; UROBILINOGEN,URINE NEGATIVE mg/dL (<2.0)
[2018-05-16 22:55] LABS: CHLAM PCR NOT DETECTED (NOT DETECT); GON PCR NOT DETECTED (NOT DETECT)
[2018-05-16] MEDS ORDERED: CEPHALEXIN 500 MG CAPSULE PO ONE (23:31)
--- NOTE | 2018-05-16 23:35 | ER Document Report ---
ED General - General Chief Complaint: Abdominal Pain Stated Complaint: PELVIC PAIN Time Seen by Provider: 05/16/18 20:25 Notes: Patient is a 23-year-old male without chronic medical problems who presents with 2 days of intermittent pain to the suprapubic portion of his abdomen. He reports that the pain is a intermittent, aching, throbbing pain just above his pubic symphysis. He states that the pain comes on spontaneously, lasts for approximately 1 or 2 hours and then spontaneously resolves. Nothing seems to trigger or cause the pain to resolve. He notes associated dysuria and increased urinary frequency although no penile discharge, penile lesions or testicular pain. He denies any history of similar symptoms in the past. He notes that although he is sexually active he does use condoms every time. He has not seen his general doctor regarding today's concerns. He denies any abdominal pain to any of the location of his abdomen. No nausea, vomiting, diarrhea, fever or constitutional symptoms. He denies any pain at the time of my assessment. TRAVEL OUTSIDE OF THE [place] IN LAST 30 DAYS: No - Related Data Allergies/Adverse Reactions: amoxicillin Allergy (Intermediate, Verified 05/16/18 20:16) Urticaria Past Medical History - General Information source: Patient - Social History Smoking Status: Never Smoker Frequency of alcohol use: None Drug Abuse: Marijuana Lives with: Alone Family History: Reviewed & Not Pertinent Patient has suicidal ideation: No Patient has homicidal ideation: No Renal/ Medical History: Denies: Hx Peritoneal Dialysis - Immunizations Hx Diphtheria, Pertussis, Tetanus Vaccination: Yes Review of Systems - Review of Systems Notes: Constitutional: Negative for fever. HENT: Negative for sore throat. Eyes: Negative for visual changes. Cardiovascular: Negative for chest pain. Respiratory: Negative for shortness of breath. Gastrointestinal: Positive for abdominal pain Genitourinary: Positive for dysuria Musculoskeletal: Negative for back pain. Skin: Negative for rash. Neurological: Negative for headaches, weakness or numbness. 10 point ROS negative except as marked above and in HPI. Physical Exam - Vital signs Vitals: Temp Pulse Resp BP Pulse Ox 98.5 F 66 18 136/74 H 100 05/16/18 18:47 05/16/18 18:47 05/16/18 18:47 05/16/18 18:47 05/16/18 18:47 Interpretation: Normal Notes: PHYSICAL EXAMINATION: GENERAL: Well-appearing, well-nourished and in no acute distress. HEAD: Atraumatic, normocephalic. EYES: Pupils equal round and reactive to light, extraocular movements intact, sclera anicteric, conjunctiva are normal. ENT: nares patent, oropharynx clear without exudates. Moist mucous membranes. NECK: Normal range of motion, supple without lymphadenopathy LUNGS: Breath sounds clear to auscultation bilaterally and equal. No wheezes rales or rhonchi. HEART: Regular rate and rhythm without murmurs ABDOMEN: Soft, nontender, normoactive bowel sounds. No guarding, no rebound. No masses appreciated. : No penile lesions, positive cremasteric reflex bilaterally. No penile discharge. EXTREMITIES: Normal range of motion, no pitting or edema. No cyanosis. NEUROLOGICAL: No focal neurological deficits. Moves all extremities spontaneously and on command. PSYCH: Normal mood, normal affect. SKIN: Warm, Dry, normal turgor, no rashes or lesions noted. Course - Re-evaluation Re-evalutation: 05/16/18 23:34 Patient presents with pain to his very low abdomen just above his pubic symphysis. No alternative area of abdominal tenderness on palpation. No significant tenderness on palpation of the affected area. Specifically no tenderness to the right lower quadrant, periumbilical region or upper abdomen. Vitals within normal limits. Testicular and penile examination unremarkable without any evidence of lesions, normal cremasteric reflex and the patient denies any penile or testicular discomfort. Urinalysis does show trace bacteria , 4 white blood cells, otherwise unremarkable. Gonorrhea and Chlamydia are negative. A urine culture has been sent and given that the patient is complaining of some dysuria with pain to this location he will be empirically started on antibiotics. Bedside ultrasound without evidence of a dilated bladder or hydronephrosis. There is not appear to be any reasonable alternative life-threatening pathology at this time point that would alternatively explain his symptoms. I have emphasized with the patient the diagnostic uncertainty of his presentation and have emphasized that he should have a low threshold to return to the emergency department for worsening or new symptoms. At this time will discharge with return precautions and follow-up recommendations. Verbal discharge instructions given a the bedside and opportunity for questions given. Medication warnings reviewed. Patient is in agreement with this plan and has verbalized understanding of return precautions and the need for primary care follow-up in the next 24-72 hours. - Vital Signs Vital signs: Temp Pulse Resp BP Pulse Ox 98.3 F 57 L 14 112/61 98 05/16/18 23:45 05/16/18 23:45 05/16/18 23:45 05/16/18 23:45 05/16/18 23:45 - Laboratory Laboratory results interpreted by me: 05/16/18 20:48 Urine Protein 30 H Discharge - Discharge Clinical Impression: Pelvic pain in male, Dysuria Condition: Good Disposition: HOME, SELF-CARE Additional Instructions: Your seen today for pain just above your pubic bone. Your urine does have some bacteria in it and a culture has been sent. You do not have gonorrhea or chlamydia. You are being treated with a short course of antibiotics to see if this relieves your symptoms. Please follow-up with your primary care physician in the next 2-3 days. Return to emergency room if you develop fever >101F, persistent vomiting, become lethargic, have severe pain in your sides, worsening pain to the location that is already bothering you, or any other symptoms that are concerning to you. Prescriptions: Cephalexin Monohydrate [Keflex 500 mg Capsule] 500 mg PO Q6H 5 Days capsule Referrals: LOCALMD,NO [NO LOCAL MD] - Follow up as needed
[2018-05-16 23:47] VITALS: BP 112/61
== END 2018-05-16 23:46 | disposition home or self-care (01) ==
LOC: ER 18:40
DX: R10.2 Pelvic and perineal pain (principal); R30.0 Dysuria; R35.0 Frequency of micturition
CPT/HCPCS: 36415; 81001; 87086; 87491; 87591; 99284

== ENCOUNTER 2018-05-21 15:18 | Emergency (ER) | payer SELFPAY ==
[2018-05-21 15:27] VITALS: BP 138/60
--- NOTE | 2018-05-21 15:50 | ER Document Report ---
ED Medical Screen (RME) - General Chief Complaint: Abdominal Pain Stated Complaint: BACK/ABDOMINAL PAIN Time Seen by Provider: 05/21/18 15:49 Mode of Arrival: Ambulatory Information source: Patient Notes: 23-year-old man who presents to the emergency room with left-sided abdominal pain, subjective fevers and just not feeling well for the past several weeks. TRAVEL OUTSIDE OF THE [place] IN LAST 30 DAYS: No - Related Data Allergies/Adverse Reactions: amoxicillin Allergy (Intermediate, Verified 05/21/18 15:18) Urticaria Past Medical History - Social History Frequency of alcohol use: None Drug Abuse: Marijuana Renal/ Medical History: Denies: Hx Peritoneal Dialysis - Immunizations Hx Diphtheria, Pertussis, Tetanus Vaccination: Yes Physical Exam - Vital signs Vitals: Temp Pulse Resp BP Pulse Ox 98.3 F 97 16 138/60 H 98 05/21/18 15:22 05/21/18 15:22 05/21/18 15:22 05/21/18 15:22 05/21/18 15:22 Course - Vital Signs Vital signs: Temp Pulse Resp BP Pulse Ox 98.3 F 97 16 138/60 H 98 05/21/18 15:22 05/21/18 15:22 05/21/18 15:22 05/21/18 15:22 05/21/18 15:22
[2018-05-21 16:20] LABS: ABSOLUTE EOSINOPHILS # (AUTO) 0.3 10^3/uL (0.0-0.6); ABSOLUTE LYMPHOCYTES (AUTO) 2.1 10^3/uL (0.5-4.7); ABSOLUTE MONOCYTES (AUTO) 0.5 10^3/uL (0.1-1.4); ABSOLUTE NEUT (AUTO) 4.8 10^3/uL (1.7-8.2); BASOPHILS % (AUTO) 0.4 % (0-2); HEMATOCRIT 45.3 % (37.9-51.0); HEMOGLOBIN 15.5 g/dL (13.5-17.0); LYMPHOCYTES % (AUTO) 27.5 % (13-45); MEAN CORPUSCULAR HGB CONC 34.2 g/dL (32.0-36.0); MEAN CORPUSCULAR VOLUME 85 fl (80-97); MONOCYTES % (AUTO) 6.5 % (3-13); PLATELET COUNT 241 10^3/uL (150-450); RED BLOOD COUNT 5.36 10^6/uL (4.35-5.55); RED CELL DISTRIBUTION WIDTH 13.9 % (11.5-14.0); SEGMENTED NEUTROPHILS % (AUTO) 61.6 % (42-78); TOTAL CELLS COUNTED % (AUTO) 100 %; WHITE BLOOD COUNT 7.7 10^3/uL (4.0-10.5)
--- NOTE | 2018-05-21 16:21 | ER Document Report ---
ED GI/ - General Chief Complaint: Abdominal Pain Stated Complaint: BACK/ABDOMINAL PAIN Time Seen by Provider: 05/21/18 15:49 Mode of Arrival: Ambulatory Information source: Patient Notes: Patient presents complaining of abdominal pain for the past month that is worse to the right side of the abdomen today. Patient reports body aches that started today and having green colored bowel movements at home. Patient does complain of some dysuria with penile pruritus. Patient states that he has had a rash to his back and some peeling skin to his hands. Patient denies any nausea vomiting or diarrhea. Patient does acknowledge having protected intercourse with men. Patient also complains of tender lymph nodes to the right inguinal area TRAVEL OUTSIDE OF THE [place] IN LAST 30 DAYS: No - HPI Patient complains to provider of: Abdominal pain, Groin pain Onset: Other - Abdominal pain 1 month worse today Timing/Duration: Persistent Quality of pain: Achy Pain Level: 3 Location: RUQ Sexual history: Active, Condoms. denies: Unprotected intercourse Associated symptoms: Dysuria. denies: Diarrhea, Fever, Nausea, Urinary hesitancy, Urinary frequency, Urinary retention, Urinary urgency, Vomiting Exacerbated by: Denies Relieved by: Denies Similar symptoms previously: Yes Recently seen / treated by doctor: Yes - Related Data Allergies/Adverse Reactions: amoxicillin Allergy (Intermediate, Verified 05/21/18 15:18) Urticaria Past Medical History - General Information source: Patient - Social History Smoking Status: Former Smoker Frequency of alcohol use: None Drug Abuse: Marijuana Occupation: Foodservice Family History: Reviewed & Not Pertinent Patient has suicidal ideation: No Patient has homicidal ideation: No - Medical History Medical History: Negative Renal/ Medical History: Denies: Hx Peritoneal Dialysis Surgical Hx: Negative - Immunizations Hx Diphtheria, Pertussis, Tetanus Vaccination: Yes Review of Systems - Review of Systems Constitutional: Recent illness - Recently treated for UTI with Keflex. denies: Fever EENT: No symptoms reported. denies: Throat pain Cardiovascular: No symptoms reported. denies: Chest pain Respiratory: No symptoms reported. denies: Cough Gastrointestinal: Abdominal pain. denies: Diarrhea, Nausea, Vomiting, Poor appetite Genitourinary: Dysuria. denies: Discharge, Flank pain Male Genitourinary: No symptoms reported. denies: Erectile dysfunction, Testicular pain, Penile discharge Musculoskeletal: No symptoms reported. denies: Back pain Skin: Dryness, Rash Hematologic/Lymphatic: No symptoms reported Neurological/Psychological: No symptoms reported Physical Exam - Vital signs Vitals: Temp Pulse Resp BP Pulse Ox 98.3 F 97 16 138/60 H 98 05/21/18 15:22 05/21/18 15:22 05/21/18 15:22 05/21/18 15:22 05/21/18 15:22 - General General appearance: Appears well, Alert In distress: None - HEENT Head: Normocephalic, Atraumatic Eyes: Normal Conjunctiva: Normal Nasal: Normal Mouth/Lips: Normal Mucous membranes: Normal Pharynx: Normal Neck: Normal, Supple. No: Lymphadenopathy - Respiratory Respiratory status: No respiratory distress Chest status: Nontender Breath sounds: Normal. No: Rales, Rhonchi, Stridor, Wheezing Chest palpation: Normal - Cardiovascular Rhythm: Regular Heart sounds: S1 appreciated, S2 appreciated Murmur: No - Abdominal Inspection: Normal Distension: No distension Bowel sounds: Normal Tenderness: Tender - RUQ Organomegaly: No organomegaly - Genitourinary Inspection: Normal. No: Penile discharge Tenderness: Nontender Cremasteric reflex: Normal Scrotum: Normal Notes: prominent lymph nodes to R inguinal area - Back Back: Normal, Nontender. No: CVA tenderness - Extremities General upper extremity: Normal inspection, Normal ROM General lower extremity: Normal inspection, Normal ROM - Neurological Neuro grossly intact: Yes Cognition: Normal Drewsey Coma Scale Eye Opening: Spontaneous Drewsey Coma Scale Verbal: Oriented Drewsey Coma Scale Motor: Obeys Commands Drewsey Coma Scale Total: 15 - Psychological Associated symptoms: Normal affect, Normal mood - Skin Skin Temperature: Warm Skin Moisture: Dry Skin Color: Other - dry skin to hands, peeling in areas Course - Re-evaluation Re-evalutation: 05/21/18 18:39 Patient states that he is feeling much better. Patient denies any abdominal pain at this time. RPR test is pending, will treat patient prophylactically pending test results. Patient is agreeable to this plan of care. Patient encouraged to follow-up with the primary doctor for further evaluation. Patient presents with abdominal pain without signs of peritonitis or other life- threatening or serious etiology. Patient appears stable for discharge and has been instructed to return immediately if the symptoms worsen in any way, or in 8 -12 hours if not improved for reevaluation. The patient has been instructed to return if the symptoms worsen or change in any way. - Vital Signs Vital signs: Temp Pulse Resp BP Pulse Ox 98.3 F 97 16 138/60 H 98 05/21/18 15:22 05/21/18 15:22 05/21/18 15:22 05/21/18 15:22 05/21/18 15:22 - Laboratory Result Diagrams: 05/21/18 16:00 05/21/18 16:00 Laboratory results interpreted by me: 05/21/18 05/21/18 05/21/18 16:00 16:00 16:00 Creatine Kinase 252 H Total Protein 8.4 H Urine Protein 30 H Urine Ketones TRACE H Urine Urobilinogen 2.0 H Labs- Entire Visit 05/21/18 05/21/18 05/21/18 16:00 16:00 16:00 WBC 7.7 RBC 5.36 Hgb 15.5 Hct 45.3 MCV 85 MCH 29.0 MCHC 34.2 RDW 13.9 Plt Count 241 Seg Neutrophils % 61.6 Lymphocytes % 27.5 Monocytes % 6.5 Eosinophils % 4.0 Basophils % 0.4 Absolute Neutrophils 4.8 Absolute Lymphocytes 2.1 Absolute Monocytes 0.5 Absolute Eosinophils 0.3 Absolute Basophils 0.0 Sodium 142.1 Potassium 3.7 Chloride 103 Carbon Dioxide 25 Anion Gap 14 BUN 13 Creatinine 1.13 Est GFR ( Amer) > 60 Est GFR (Non-Af Amer) > 60 Glucose 93 Calcium 9.9 Total Bilirubin 0.6 Direct Bilirubin 0.2 Neonat Total Bilirubin Not Reportable Neonat Direct Bilirubin Not Reportable Neonat Indirect Bili Not Reportable AST 20 ALT 25 Alkaline Phosphatase 56 Creatine Kinase Total Protein 8.4 H Albumin 4.9 Lipase Urine Color Urine Appearance Urine pH Ur Specific Josephine Urine Protein Urine Glucose (UA) Urine Ketones Urine Blood Urine Nitrite Urine Bilirubin Urine Urobilinogen Ur Leukocyte Esterase Urine WBC (Auto) Urine RBC (Auto) Urine Mucus (Auto) Urine Ascorbic Acid Urine Opiates Screen Urine Methadone Screen Ur Barbiturates Screen Ur Phencyclidine Scrn Ur Amphetamines Screen U Benzodiazepines Scrn Urine Cocaine Screen U Marijuana (THC) Screen Chlamydia DNA (PCR) NOT DETECTED N.gonorrhoeae DNA (PCR) NOT DETECTED 05/21/18 05/21/18 05/21/18 16:00 16:00 16:00 WBC RBC Hgb Hct MCV MCH MCHC RDW Plt Count Seg Neutrophils % Lymphocytes % Monocytes % Eosinophils % Basophils % Absolute Neutrophils Absolute Lymphocytes Absolute Monocytes Absolute Eosinophils Absolute Basophils Sodium Potassium Chloride Carbon Dioxide Anion Gap BUN Creatinine Est GFR ( Amer) Est GFR (Non-Af Amer) Glucose Calcium Total Bilirubin Direct Bilirubin Neonat Total Bilirubin Neonat Direct Bilirubin Neonat Indirect Bili AST ALT Alkaline Phosphatase Creatine Kinase 252 H Total Protein Albumin Lipase 53.8 Urine Color YELLOW Urine Appearance CLEAR Urine pH 6.0 Ur Specific Josephine 1.033 Urine Protein 30 H Urine Glucose (UA) NEGATIVE Urine Ketones TRACE H Urine Blood NEGATIVE Urine Nitrite NEGATIVE Urine Bilirubin NEGATIVE Urine Urobilinogen 2.0 H Ur Leukocyte Esterase NEGATIVE Urine WBC (Auto) 1 Urine RBC (Auto) 1 Urine Mucus (Auto) MANY Urine Ascorbic Acid NEGATIVE Urine Opiates Screen NEGATIVE Urine Methadone Screen NEGATIVE Ur Barbiturates Screen NEGATIVE Ur Phencyclidine Scrn NEGATIVE Ur Amphetamines Screen NEGATIVE U Benzodiazepines Scrn NEGATIVE Urine Cocaine Screen NEGATIVE U Marijuana (THC) Screen UNCONFIRMED POSITIVE Chlamydia DNA (PCR) N.gonorrhoeae DNA (PCR) Discharge - Discharge Clinical Impression: Dysuria, Dehydration Abdominal pain Qualifiers: Abdominal location: right upper quadrant Qualified Code(s): R10.11 - Right upper quadrant pain Condition: Stable Disposition: HOME, SELF-CARE Instructions: Abdominal Pain ([facility]), Dehydration ([facility]) Additional Instructions: Return immediately for any new or worsening symptoms Cultures are pending, we will call if you need any different treatment Follow-up with a primary doctor for further evaluation, call Wednesday for an appointment Prescriptions: Doxycycline Hyclate 100 mg PO BID #28 capsule Forms: Return to Work Referrals: HEALTH DEPT,[facility] [NO LOCAL MD] - Follow up as needed [facility] [Provider Group] - Follow up as needed
[2018-05-21 16:30] LABS: ALANINE AMINOTRANSFERASE 25 U/L (21-72); ALBUMIN 4.9 g/dL (3.5-5.0); ALKALINE PHOSPHATASE 56 U/L (38-126); ANION GAP 14 (5-19); ASPARTATE AMINO TRANSFERASE 20 U/L (17-59); BILIRUBIN,DIRECT 0.2 mg/dL (0.0-0.4); BILIRUBIN,TOTAL 0.6 mg/dL (0.2-1.3); BLOOD UREA NITROGEN 13 mg/dL (7-20); CALCIUM 9.9 mg/dL (8.4-10.2); CARBON DIOXIDE 25 mmol/L (22-30); CHLORIDE 103 mmol/L (98-107); GLUCOSE 93 mg/dL (75-110); POTASSIUM 3.7 mmol/L (3.6-5.0); SODIUM 142.1 mmol/L (137-145); TOTAL PROTEIN 8.4 g/dL (6.3-8.2)
[2018-05-21 16:37] LABS: URINE AMPHETAMINES SCREEN NEGATIVE; URINE BARBITURATES SCREEN NEGATIVE; URINE BENZODIAZEPINES SCREEN NEGATIVE; URINE COCAINE SCREEN NEGATIVE; URINE MARIJUANA (THC) SCREEN UNCONFIRMED POSITIVE; URINE METHADONE SCREEN NEGATIVE; URINE PHENCYCLIDINE SCREEN NEGATIVE
[2018-05-21 16:39] LABS: APPEARANCE,URINE CLEAR; BILIRUBIN,URINE NEGATIVE (NEGATIVE); COLOR,URINE YELLOW; GLUCOSE, URINE NEGATIVE (NEGATIVE); KETONES,URINE TRACE mg/dL (NEGATIVE); LEUKOCYTE ESTERASE,URINE NEGATIVE (NEGATIVE); NITRITE,URINE NEGATIVE (NEGATIVE); PROTEIN,URINE 30 mg/dL (NEGATIVE); URINE SPECIFIC GRAVITY 1.033
[2018-05-21 16:42] LABS: LIPASE 53.8 U/L (23-300)
[2018-05-21] MEDS ORDERED: NORMAL SALINE 1000 ML 2,000 ML IV ONE (17:11)
--- NOTE | 2018-05-21 18:19 | RADIOLOGY REPORT (SQ) ---
EXAM DESCRIPTION: U/S ABDOMEN LIMITED W/O DOP COMPLETED DATE/TIME: 05/21/2018 6:00 pm REASON FOR STUDY: RUQ COMPARISON: CT abdomen and pelvis 04/27/2018 TECHNIQUE: Dynamic and static grayscale images acquired of the abdomen and recorded on PACS. Riko teresa selected color Doppler and spectral images recorded. LIMITATIONS: None. FINDINGS: PANCREAS: No masses. Visualized pancreatic duct normal caliber. LIVER: No masses. Echotexture normal. LIVER VASCULATURE: Normal directional flow of the main portal vein and hepatic veins. GALLBLADDER: No stones. Normal wall thickness. No pericholecystic fluid. ULTRASOUND-DETECTED JACOBS'S SIGN: Negative. INTRAHEPATIC DUCTS AND COMMON DUCT: CBD and intrahepatic ducts normal caliber. No filling defects. INFERIOR VENA CAVA: Normal flow. AORTA: No aneurysm. RIGHT KIDNEY: Normal size. Normal echogenicity. No solid or suspicious masses. No hydronephrosis. No calcifications. PERITONEAL AND RIGHT PLEURAL SPACE: No ascites or effusions. OTHER: No other significant findings. IMPRESSION: NORMAL RIGHT UPPER QUADRANT ULTRASOUND. TECHNICAL DOCUMENTATION: JOB ID: [id number]- All Rights Reserved Reading location - IP/workstation name: [email or web address]
[2018-05-21 18:27] LABS: CHLAM PCR NOT DETECTED (NOT DETECT); GON PCR NOT DETECTED (NOT DETECT)
== END 2018-05-21 19:06 | disposition home or self-care (01) ==
LOC: ER 15:18
DX: R10.11 Right upper quadrant pain (principal); R30.0 Dysuria; E86.0 Dehydration; R19.5 Other fecal abnormalities; L29.9 Pruritus, unspecified; R21 Rash and other nonspecific skin eruption; R10.30 Lower abdominal pain, unspecified; Z88.0 Allergy status to penicillin; Z87.891 Personal history of nicotine dependence; Z87.440 Personal history of urinary (tract) infections
CPT/HCPCS: 99284; 96360; 36415; 82550; 83690; 85025; 86592; 80053; 81001; 80307; 87491; 87591; 76705; J7030

== ENCOUNTER 2018-07-23 19:44 | Emergency (ER) | payer SELFPAY ==
--- NOTE | 2018-07-23 20:07 | ER Document Report ---
ED Medical Screen (RME) - General Chief Complaint: Abdominal Pain Stated Complaint: ABDOMINAL PAIN Time Seen by Provider: 07/23/18 20:03 TRAVEL OUTSIDE OF THE [place] IN LAST 30 DAYS: No - HPI Notes: 07/23/18 20:07 Right upper right lower pain and pelvic pain ongoing intermittently for 1-2 months multiple visits states they occurred a few hours after smoking marijuana bowel movement 2 hours prior to arrival patient looks to be no obvious distress - Related Data Allergies/Adverse Reactions: amoxicillin Allergy (Intermediate, Verified 05/21/18 15:18) Urticaria Past Medical History - Social History Frequency of alcohol use: Occasional Drug Abuse: Marijuana Renal/ Medical History: Denies: Hx Peritoneal Dialysis - Immunizations Hx Diphtheria, Pertussis, Tetanus Vaccination: Yes Review of Systems - Review of Systems Gastrointestinal: Abdominal pain Physical Exam - Vital signs Vitals: Temp Pulse Resp BP Pulse Ox 98.4 F 79 16 119/82 95 07/23/18 19:58 07/23/18 19:58 07/23/18 19:58 07/23/18 19:58 07/23/18 19:58 - Respiratory Respiratory status: No respiratory distress Chest status: Nontender Breath sounds: Normal Chest palpation: Normal - Cardiovascular Rhythm: Regular Heart sounds: Normal auscultation Course - Vital Signs Vital signs: Temp Pulse Resp BP Pulse Ox 98.4 F 79 16 119/82 95 07/23/18 19:58 07/23/18 19:58 07/23/18 19:58 07/23/18 19:58 07/23/18 19:58
[2018-07-23 20:29] LABS: ABSOLUTE BASOPHILS # (AUTO) 0.1 10^3/uL (0.0-0.2); ABSOLUTE EOSINOPHILS # (AUTO) 0.5 10^3/uL (0.0-0.6); ABSOLUTE LYMPHOCYTES (AUTO) 2.2 10^3/uL (0.5-4.7); ABSOLUTE MONOCYTES (AUTO) 0.7 10^3/uL (0.1-1.4); ABSOLUTE NEUT (AUTO) 4.2 10^3/uL (1.7-8.2); BASOPHILS % (AUTO) 0.7 % (0-2); EOSINOPHILS % (AUTO) 6.9 % (0-6); HEMATOCRIT 44.2 % (37.9-51.0); HEMOGLOBIN 15.3 g/dL (13.5-17.0); LYMPHOCYTES % (AUTO) 28.9 % (13-45); MEAN CORPUSCULAR HEMOGLOBIN 29.3 pg (27.0-33.4); MEAN CORPUSCULAR HGB CONC 34.6 g/dL (32.0-36.0); MEAN CORPUSCULAR VOLUME 85 fl (80-97); MONOCYTES % (AUTO) 9.6 % (3-13); PLATELET COUNT 229 10^3/uL (150-450); RED BLOOD COUNT 5.22 10^6/uL (4.35-5.55); RED CELL DISTRIBUTION WIDTH 14.1 % (11.5-14.0); SEGMENTED NEUTROPHILS % (AUTO) 53.9 % (42-78); TOTAL CELLS COUNTED % (AUTO) 100 %; WHITE BLOOD COUNT 7.8 10^3/uL (4.0-10.5)
[2018-07-23 20:33] LABS: APPEARANCE,URINE CLEAR; BILIRUBIN,URINE NEGATIVE (NEGATIVE); COLOR,URINE YELLOW; GLUCOSE, URINE NEGATIVE (NEGATIVE); KETONES,URINE NEGATIVE (NEGATIVE); LEUKOCYTE ESTERASE,URINE NEGATIVE (NEGATIVE); NITRITE,URINE NEGATIVE (NEGATIVE); PROTEIN,URINE NEGATIVE (NEGATIVE); UROBILINOGEN,URINE NEGATIVE mg/dL (<2.0)
[2018-07-23 20:48] LABS: ALANINE AMINOTRANSFERASE 25 U/L (21-72); ALBUMIN 4.4 g/dL (3.5-5.0); ALKALINE PHOSPHATASE 52 U/L (38-126); ANION GAP 9 (5-19); ASPARTATE AMINO TRANSFERASE 26 U/L (17-59); BILIRUBIN,DIRECT 0.1 mg/dL (0.0-0.4); BILIRUBIN,TOTAL 0.5 mg/dL (0.2-1.3); BLOOD UREA NITROGEN 16 mg/dL (7-20); CALCIUM 9.5 mg/dL (8.4-10.2); CARBON DIOXIDE 29 mmol/L (22-30); CHLORIDE 102 mmol/L (98-107); GLUCOSE 87 mg/dL (75-110); LIPASE 73.8 U/L (23-300); POTASSIUM 4.4 mmol/L (3.6-5.0); SODIUM 139.5 mmol/L (137-145); TOTAL PROTEIN 7.4 g/dL (6.3-8.2)
[2018-07-23] MEDS ORDERED: KETOROLAC TROMETHAMINE INJ/PF 30 MG/1 ML SDV IV ONE (21:04)
[2018-07-23] MEDS ORDERED: ONDANSETRON HCL INJ/PF 4 MG/2 ML SDV IV ONE (21:04)
[2018-07-23] MEDS ORDERED: NORMAL SALINE 1000 ML 1,000 ML IV ONE (21:04)
--- NOTE | 2018-07-23 21:32 | ER Document Report ---
ED GI/ - General Chief Complaint: Abdominal Pain Stated Complaint: ABDOMINAL PAIN Time Seen by Provider: 07/23/18 20:03 Notes: Patient is a 23-year-old male presenting to the emergency department complaining of right upper quadrant and epigastric abdominal pain. Patient states pain started this morning and has increased throughout the day. Patient admits to one episode of vomiting prior to arrival nonbilious nonbloody. Patient denies diarrhea, fever, URI symptoms, chest pain, shortness of breath. Patient denies dysuria or penile discharge. Patient states he has been to this facility multiple times for abdominal pain states "they can never find out what is wrong". Past medical history: None Medications: None Allergies: Amoxicillin Surgical history: None Patient admits to occasional EtOH use, occasional marijuana use, denies cigarette smoking. TRAVEL OUTSIDE OF THE [place] IN LAST 30 DAYS: No - Related Data Allergies/Adverse Reactions: amoxicillin Allergy (Intermediate, Verified 05/21/18 15:18) Urticaria Past Medical History - General Information source: Patient - Social History Smoking Status: Never Smoker Frequency of alcohol use: Occasional Drug Abuse: Marijuana Family History: Reviewed & Not Pertinent Patient has suicidal ideation: No Patient has homicidal ideation: No Renal/ Medical History: Denies: Hx Peritoneal Dialysis - Immunizations Hx Diphtheria, Pertussis, Tetanus Vaccination: Yes Review of Systems - Review of Systems Constitutional: See HPI EENT: See HPI Cardiovascular: See HPI Respiratory: See HPI Gastrointestinal: See HPI Genitourinary: See HPI Male Genitourinary: See HPI Musculoskeletal: See HPI Skin: No symptoms reported Hematologic/Lymphatic: No symptoms reported Neurological/Psychological: No symptoms reported Physical Exam - Vital signs Vitals: Temp Pulse Resp BP Pulse Ox 98.4 F 79 16 119/82 95 07/23/18 19:58 07/23/18 19:58 07/23/18 19:58 07/23/18 19:58 07/23/18 19:58 - Notes Notes: GENERAL: Alert, interacts well. No acute distress. HEAD: Normocephalic, atraumatic. EYES: Pupils equal, round, and reactive to light. Extraocular movements intact. ENT: Oral mucosa moist, tongue midline. NECK: Full range of motion. Supple. Trachea midline. LUNGS: Clear to auscultation bilaterally, no wheezes, rales, or rhonchi. No respiratory distress. HEART: Regular rate and rhythm. No murmur ABDOMEN: Soft, Non-distended. Bowel sounds present in all 4 quadrants. Positive Stock sign, minor epigastric pain, no McBurney's point tenderness. EXTREMITIES: Moves all 4 extremities spontaneously. No edema, normal radial and dorsalis pedis pulses bilaterally. No cyanosis. BACK: no cervical, thoracic, lumbar midline tenderness. No saddle anesthesia, normal distal neurovascular exam. NEUROLOGICAL: Alert and oriented x3. Normal speech. cranial nerves II through XII grossly intact. PSYCH: Normal affect, normal mood. SKIN: Warm, dry, normal turgor. No rashes or lesions noted. Course - Re-evaluation Re-evalutation: Patient states pain has resolved with treatments in the emergency department. Patient also states he is no longer nauseated. Patient able to p.o. ice chips. Discussed ultrasound and lab results with patient need to follow-up with gastroenterology for recurrent abdominal pains. No leukocytosis, no urinary tract infection, GC negative. Pain has resolved. - Vital Signs Vital signs: Temp Pulse Resp BP Pulse Ox 97.5 F 67 20 114/76 100 07/23/18 23:45 07/23/18 23:45 07/23/18 23:45 07/23/18 23:45 07/23/18 23:45 - Laboratory Result Diagrams: 07/23/18 20:10 07/23/18 20:10 Laboratory results interpreted by me: 07/23/18 07/23/18 07/23/18 20:10 20:10 20:20 RDW 14.1 H Eosinophils % 6.9 H Creatinine 1.52 H Est GFR (Non-Af Amer) 56 L Urine Ascorbic Acid 20 H Discharge - Discharge Clinical Impression: Right upper quadrant abdominal pain Condition: Stable Disposition: HOME, SELF-CARE Instructions: Abdominal Pain ([facility]), Antinausea Medication ([facility]), Toradol Injection ([facility]) Additional Instructions: As we discussed you have been seen and treated in the emergency department for right upper quadrant abdominal pain. Your ultrasound shows no signs of abnormalities at this time. Please take prescription medications as prescribed. Follow-up with gastroenterology phone numbers will be included in this packet. Return to the emergency room should you have any worsening symptoms. Prescriptions: Ketorolac Tromethamine [Toradol 10 mg Tablet] 10 mg PO Q8HP PRN #24 tablet PRN Reason: Ondansetron [Zofran Odt 4 mg Tablet] 1 - 2 tab PO Q4H PRN #15 tab.rapdis PRN Reason: For Nausea/Vomiting Referrals: CROW GARCIA MD [ACTIVE STAFF] - Follow up as needed
[2018-07-23 22:02] LABS: CHLAM PCR NOT DETECTED (NOT DETECT); GON PCR NOT DETECTED (NOT DETECT)
--- NOTE | 2018-07-23 22:48 | RADIOLOGY REPORT (SQ) ---
Limited abdominal ultrasound with Doppler HISTORY: Right upper quadrant pain. FINDINGS: Liver is unremarkable with no focal lesions. No significant biliary dilatation. Gallbladder appears contracted. There is moderate wall thickening. No significant biliary dilatation. Right kidney does not demonstrate hydronephrosis. Aorta and IVC are within normal limits. Pancreas is not well visualized due to shadowing by bowel gas. Main portal vein is patent with hepatopedal flow. IMPRESSION: Contracted gallbladder with wall thickening, nonspecific. Evaluation for cholelithiasis is limited and contracted state and no stones are noted. No significant biliary dilatation.
[2018-07-23 23:46] VITALS: BP 114/76
== END 2018-07-23 23:46 | disposition home or self-care (01) ==
LOC: ER 19:44
DX: R10.11 Right upper quadrant pain (principal); R11.10 Vomiting, unspecified; Z88.0 Allergy status to penicillin
CPT/HCPCS: 99284; 96361; 96374; 96375; 36415; 83690; 85025; 80053; 81001; 87491; 87591; 76705; 93976; J1885; J2405; J7030

== ENCOUNTER 2018-08-13 18:47 | Emergency (ER) | payer SELFPAY ==
[2018-08-13 18:52] VITALS: BP 140/75
[2018-08-13] MEDS ORDERED: CEFTRIAXONE INJ 250 MG VIAL IM ONE (19:56)
[2018-08-13] MEDS ORDERED: AZITHROMYCIN 1 GM SUSP PACKET PO ONE (19:56)
[2018-08-13] MEDS ORDERED: LIDOCAINE 1% INJ-PF (10 MG/ML) 30 ML SDV INJ ONE (19:56)
--- NOTE | 2018-08-13 20:09 | ER Document Report ---
HPI - HPI Patient complains to provider of: Right ear pain Pain Level: 4 Context: Patient is a 23-year-old male presenting to the emergency department complaining of right ear pain. Patient states a couple days ago he tried to clean his ears with a Q-tip and has had pain ever since. Patient denies upper respiratory symptoms, fever, abdominal pain, chest pain, shortness of breath. Patient also admits to dysuria and some pain in his penis. Patient states he is sexually active with multiple partners. Past medical history: None Medications: None Allergies: None Past Medical History - General Information source: Patient - Social History Smoking Status: Unknown if Ever Smoked Lives with: Family Family History: Reviewed & Not Pertinent Renal/ Medical History: Denies: Hx Peritoneal Dialysis - Immunizations Hx Diphtheria, Pertussis, Tetanus Vaccination: Yes Vertical Provider Document - CONSTITUTIONAL Agree With Documented VS: Yes Notes: GENERAL: Alert, interacts well. No acute distress. HEAD: Normocephalic, atraumatic. EYES: Pupils equal, round, and reactive to light. Extraocular movements intact. ENT: Oral mucosa moist, tongue midline. Right canal within normal limits, TM not visualized due to a dark cerumen impaction. Left TM and canal within normal limits. NECK: Full range of motion. Supple. Trachea midline. LUNGS: Clear to auscultation bilaterally, no wheezes, rales, or rhonchi. No respiratory distress. HEART: Regular rate and rhythm. No murmur ABDOMEN: Soft, non-tender. Non-distended. Bowel sounds present in all 4 quadrants. EXTREMITIES: Moves all 4 extremities spontaneously. No edema, normal radial and dorsalis pedis pulses bilaterally. No cyanosis. BACK: no cervical, thoracic, lumbar midline tenderness. No saddle anesthesia, normal distal neurovascular exam. NEUROLOGICAL: Alert and oriented x3. Normal speech. cranial nerves II through XII grossly intact. PSYCH: Normal affect, normal mood. SKIN: Warm, dry, normal turgor. No rashes or lesions noted. PELVIS: Pelvis stable, circumcised penis no discharge at the meatus, bilateral testicles descended no erythema or tenderness noted. - INFECTION CONTROL TRAVEL OUTSIDE OF THE [place] IN LAST 30 DAYS: No Course - Re-evaluation Re-evalutation: 08/13/18 20:06 Patient denies testicular pain or swelling. States the end of his penis is what hurts. Patient also complaining of dysuria. We will treat for gonorrhea and chlamydia in the emergency room. Urine pending gonorrhea and Chlamydia testing. Will prescribe Debrox for right cerumen impaction. Discussed need to follow-up with primary care provider in the next 24-48 hours. UA reveals no signs of infection. - Vital Signs Vital signs: Temp Pulse Resp BP Pulse Ox 98.8 F 63 16 140/75 H 96 08/13/18 18:50 08/13/18 18:50 08/13/18 18:50 08/13/18 18:50 08/13/18 18:50 Discharge - Discharge Clinical Impression: Possible exposure to STD, Dysuria Cerumen impaction Qualifiers: Laterality: right Qualified Code(s): H61.21 - Impacted cerumen, right ear Condition: Stable Disposition: HOME, SELF-CARE Instructions: Cerumen Impaction ([facility]) Additional Instructions: Urethritis You have urethritis, an infection of the urethra. The usual symptoms are pain on urination and discharge. The infection is often caused by gonorrhea or chlamydia. Treatment is antibiotics. In addition, any sexual contacts should be evaluated by a physician as soon as possible. As this infection can be transmitted sexually, refrain from sexual activity until the infection is confirmed as healed by your physician. If gonorrhea or chlamydia is found on culture, the health department must be notified. Call the doctor at once if you develop difficulty passing your urine, high fever, rash, joint swelling, or other new symptoms. Prescriptions: Carbamide Peroxide [Debrox 6.5 % Otic Drops 15 ml] 10 drop OT BID #1 bottle
[2018-08-13 20:20] LABS: APPEARANCE,URINE CLEAR; BILIRUBIN,URINE NEGATIVE (NEGATIVE); COLOR,URINE YELLOW; GLUCOSE, URINE NEGATIVE (NEGATIVE); KETONES,URINE NEGATIVE (NEGATIVE); LEUKOCYTE ESTERASE,URINE NEGATIVE (NEGATIVE); NITRITE,URINE NEGATIVE (NEGATIVE); PROTEIN,URINE NEGATIVE (NEGATIVE); URINE SPECIFIC GRAVITY 1.023
[2018-08-13 21:49] LABS: CHLAM PCR NOT DETECTED (NOT DETECT); GON PCR NOT DETECTED (NOT DETECT)
== END 2018-08-13 20:35 | disposition home or self-care (01) ==
LOC: ER 18:47
DX: H61.21 Impacted cerumen, right ear (principal); Z20.2 Contact with and (suspected) exposure to infections with a predominantly sexual mode of transmission; R30.0 Dysuria
CPT/HCPCS: 99284; 81001; 87491; 87591; J3490; Q0144; J0696

== ENCOUNTER 2018-08-18 22:25 | Emergency (ER) | payer SELFPAY ==
--- NOTE | 2018-08-19 00:18 | ER Document Report ---
ED General - General Chief Complaint: Chest Congestion Stated Complaint: CONGESTION, CHEST PAIN, COUGH Time Seen by Provider: 08/18/18 23:56 TRAVEL OUTSIDE OF THE [place] IN LAST 30 DAYS: No - HPI Notes: Patient is a 23-year-old male who presents to the ED complaining of continued intermittent right upper quadrant abdominal pain over the last 3-4 months as well as having right upper lateral chest wall pain intermittently over the last several days, but constant over the last 24 hours. Patient states that movement makes his pain worse. Patient states that he has an occasional dry nonproductive cough, but is nothing persistent. He does have some nasal congestion/discharge, but does not believe that this is associated. He is otherwise eating and drinking without any difficulties or change in symptoms. He is urinating normally and having normal bowel movements. Denies IV drug use or alcohol involvement. Denies any headache, fever, neck pain, URI, sore throat , palpitations, syncope, shortness of breath, wheeze, dyspnea, nausea/vomiting/ diarrhea, urinary retention, dysuria, hematuria, loss of control of bowel or bladder, numbness/tingling, saddle anesthesia, muscle paralysis/weakness, or rash. Denies any prolonged immobilization, distance travel, recent surgery/ trauma, personal cancer history, hormone use, smoking, or previous DVT/PE. - Related Data Allergies/Adverse Reactions: amoxicillin Allergy (Intermediate, Verified 08/13/18 18:48) Urticaria Past Medical History - Social History Smoking Status: Never Smoker Chew tobacco use (# tins/day): No Frequency of alcohol use: None Drug Abuse: None Family History: Reviewed & Not Pertinent Patient has suicidal ideation: No Patient has homicidal ideation: No Renal/ Medical History: Denies: Hx Peritoneal Dialysis - Immunizations Hx Diphtheria, Pertussis, Tetanus Vaccination: Yes Review of Systems - Review of Systems -: Yes All other systems reviewed and negative Physical Exam - Vital signs Vitals: Temp Pulse Resp BP Pulse Ox 98.9 F 70 20 138/70 H 98 08/18/18 22:37 08/18/18 22:37 08/18/18 22:37 08/18/18 22:37 08/18/18 22:37 - Notes Notes: PHYSICAL EXAMINATION: GENERAL: Well-appearing, well-nourished and in no acute distress. HEAD: Atraumatic, normocephalic. EYES: Pupils equal round and reactive to light, extraocular movements intact, sclera anicteric, conjunctiva are normal. ENT: Nares patent and without discharge. oropharynx clear without exudates. No tonsilar hypertrophy or erythema. Moist mucous membranes. NECK: Normal range of motion, supple without lymphadenopathy Chest: + reproducible tenderness to palpation of the rt pectoral area and reproducible with arm extension/abduction. LUNGS: Breath sounds clear to auscultation bilaterally and equal. No wheezes rales or rhonchi. HEART: Regular rate and rhythm without murmurs, rubs, gallops. ABDOMEN: Soft, nondistended abdomen. No guarding, no rebound. No masses appreciated. Normal bowel sounds present. No CVA tenderness bilaterally. + tenderness to the RUQ. No tenderness at McBurney point. Musculoskeletal: FROM to passive/active. Strength 5+/5. Keerthi neg. No asymmetry to LE's. Extremities: No cyanosis, clubbing, or edema b/l. Peripheral pulses 2+. Capillary refill less than 3 seconds. NEUROLOGICAL: Normal speech, normal gait. PSYCH: Normal mood, normal affect. SKIN: Warm, Dry, normal turgor, no rashes or lesions noted. Course - Re-evaluation Re-evalutation: 08/19/18 00:21 Labs and imaging ordered. Patient has had similar symptoms at previous visits with unremarkable workups. He notes no acute changes in presentation compared to previous visits. EKG was currently unremarkable at this time. Vitals acceptable. 08/19/18 01:38 Patient is an afebrile, well-hydrated 37-year-old male who presents to the ED with an acute URI, suspect viral, chest wall pain, unspecified, and RUQ pain unspecified. Vitals are acceptable without any significant tachycardia, tachypnea, or hypoxia. Patient is nontoxic-appearing and is tolerating p.o. without any difficulties. CBC, CMP, EKG/cardiac enzymes, chest x-ray, and RUQ US are all unremarkable for any acute pathology. Patient has a heart score of 0 , Wells score of 0, and is PERC negative. Patient does not have any dyspnea or shortness of breath. Patient's presentation and symptomatology creates low suspicion for ACS, PE, pneumothorax, pericarditis, dissection, respiratory compromise, severe dehydration, sepsis, meningitis, or other systemic emergent condition at this time. Patient is aware that his condition can change from initial presentation and he needs to monitor symptoms closely and seek medical attention for any acute changes. Recommend conservative measures for symptoms. Recheck with your PCM in 2-3 days. Consider consult with general surgery/GI. Return to the ED with any worsening/concerning symptoms otherwise as reviewed in discharge. Patient is in agreement. - Vital Signs Vital signs: Temp Pulse Resp BP Pulse Ox 98.9 F 70 20 138/70 H 98 08/18/18 22:37 08/18/18 22:37 08/18/18 22:37 08/18/18 22:37 08/18/18 22:37 - Laboratory Result Diagrams: 08/19/18 00:30 08/19/18 00:30 Laboratory results interpreted by me: 08/19/18 00:30 Eosinophils % 6.8 H Discharge - Discharge Clinical Impression: Chest wall pain, RUQ abdominal pain, Acute URI Condition: Stable Disposition: HOME, SELF-CARE Instructions: Abdominal Pain ([facility]), Chest Wall Pain ([facility]), Upper Respiratory Illness ([facility]) Additional Instructions: Maintain adequate fluid and food intake Take home medications as directed Healthy diet Light stretches, ice, warm compresses Monitor symptoms for any acute changes Recheck with your PCM in 3-5 days Consider a follow-up with general surgery/gastroenterology for further evaluation and management Return to the ED with any worsening symptoms and/or development of fever, headache, chest pain, palpitations, syncope, shortness of breath, trouble breathing, abdominal pain, n/v/d, blood in stool/urine, loss of control of bowel /bladder, urinary retention, muscle weakness/paralysis, numbness/tingling, or other worsening symptoms that are concerning to you. Prescriptions: Naproxen 500 mg PO BID #20 tablet Forms: Elevated Blood Pressure Referrals: ISMAEL NYE MD [ACTIVE STAFF] - Follow up as needed JYOTI ELLSWORTH MD [ACTIVE STAFF] - Follow up in 1 week
--- NOTE | 2018-08-19 00:18 | RADIOLOGY REPORT (SQ) ---
EXAM DESCRIPTION: XR CHEST 2 VIEWS COMPLETED DATE/TME: 08/18/2018 23:37 CLINICAL HISTORY: 23 years, Male, cough, cp COMPARISON: None. NUMBER OF VIEWS: 2 TECHNIQUE: Frontal and lateral views of the chest LIMITATIONS: None. FINDINGS: The heart size is normal. Lungs are clear. No pneumothorax IMPRESSION: Negative chest 2010 [facility] [employer]- All Rights Reserved
[2018-08-19 00:56] LABS: ABSOLUTE EOSINOPHILS # (AUTO) 0.5 10^3/uL (0.0-0.6); ABSOLUTE LYMPHOCYTES (AUTO) 2.2 10^3/uL (0.5-4.7); ABSOLUTE MONOCYTES (AUTO) 0.5 10^3/uL (0.1-1.4); BASOPHILS % (AUTO) 0.6 % (0-2); EOSINOPHILS % (AUTO) 6.8 % (0-6); HEMATOCRIT 43.8 % (37.9-51.0); HEMOGLOBIN 15.1 g/dL (13.5-17.0); LYMPHOCYTES % (AUTO) 30.6 % (13-45); MEAN CORPUSCULAR HEMOGLOBIN 29.4 pg (27.0-33.4); MEAN CORPUSCULAR HGB CONC 34.5 g/dL (32.0-36.0); MEAN CORPUSCULAR VOLUME 85 fl (80-97); MONOCYTES % (AUTO) 6.6 % (3-13); PLATELET COUNT 236 10^3/uL (150-450); RED BLOOD COUNT 5.13 10^6/uL (4.35-5.55); SEGMENTED NEUTROPHILS % (AUTO) 55.4 % (42-78); TOTAL CELLS COUNTED % (AUTO) 100 %; WHITE BLOOD COUNT 7.3 10^3/uL (4.0-10.5)
[2018-08-19 01:09] LABS: ALANINE AMINOTRANSFERASE 21 U/L (21-72); ALBUMIN 4.2 g/dL (3.5-5.0); ALKALINE PHOSPHATASE 57 U/L (38-126); ANION GAP 12 (5-19); ASPARTATE AMINO TRANSFERASE 21 U/L (17-59); BILIRUBIN,DIRECT 0.2 mg/dL (0.0-0.4); BILIRUBIN,TOTAL 0.4 mg/dL (0.2-1.3); BLOOD UREA NITROGEN 13 mg/dL (7-20); CALCIUM 9.7 mg/dL (8.4-10.2); CARBON DIOXIDE 29 mmol/L (22-30); CHLORIDE 103 mmol/L (98-107); GLUCOSE 89 mg/dL (75-110); LIPASE 73.5 U/L (23-300); POTASSIUM 3.8 mmol/L (3.6-5.0); SODIUM 143.5 mmol/L (137-145); TOTAL PROTEIN 7.3 g/dL (6.3-8.2)
--- NOTE | 2018-08-19 01:22 | RADIOLOGY REPORT (SQ) ---
CLINICAL DATA: 23-year-old male with right upper quadrant pain. TECHNICAL DATA: Limited sonographic imaging of the right upper quadrant was performed. Comparison: Prior abdominal ultrasound performed on 07/23/2018 and 05/21/2018 as well as a prior CT abdomen and pelvis performed on 04/27/2018. FINDINGS: The liver is normal in size and configuration. The liver demonstrates normal echogenicity. No focal hepatic abnormalities are identified. Doppler imaging reveals patency of the portal vein and normal hepatopedal flow. The gallbladder is partially distended and normal in appearance. There is no evidence of gallbladder wall thickening or pericholecystic fluid. The common bile duct is normal in size and measures 3 mm in diameter. There is no evidence of biliary ductal dilatation. The technologist, however, detected a positive sonographic Stock sign. The right kidney is normal in size, shape and echogenicity without hydronephrosis or definite nephrolithiasis. The right kidney measures 12.5 cm in sagittal dimension. There is no evidence of free fluid in the abdomen. The aorta is normal in caliber and contour and tapers distally. The visualized portions of the pancreas are grossly unremarkable. Some portions are obscured by bowel gas. The proximal inferior vena cava is normal in caliber and contour. IMPRESSION: 1. Grossly normal right upper quadrant ultrasound without significant change since the prior studies. 2. The technologist detected a positive sonographic Stock sign. Correlate clinically.
[2018-08-19] MEDS ORDERED: KETOROLAC TROMETHAMINE INJ/PF 30 MG/1 ML SDV IV ONE (01:43)
[2018-08-19 01:57] VITALS: BP 142/75
--- NOTE | 2018-08-19 10:38 | EKG REPORT ---
SEVERITY:- ABNORMAL ECG - SINUS RHYTHM FIRST DEGREE AV BLOCK INCOMPLETE RIGHT BUNDLE BRANCH BLOCK : Confirmed by: Rodney Ga 19-Aug-2018 10:37:22
== END 2018-08-19 02:31 | disposition home or self-care (01) ==
LOC: ER 22:25
DX: J06.9 Acute upper respiratory infection, unspecified (principal); R07.89 Other chest pain; R10.11 Right upper quadrant pain; Z88.0 Allergy status to penicillin
CPT/HCPCS: 93005; 99284; 96374; 36415; 83690; 85025; 80053; 84484; 71046; 76705; 93010; J1885

== ENCOUNTER 2018-09-03 14:32 | Emergency (ER) | payer SELFPAY ==
[2018-09-03] MEDS ORDERED: AZITHROMYCIN 250 MG TABLET PO ONE (14:58)
[2018-09-03] MEDS ORDERED: CEFTRIAXONE INJ 250 MG VIAL IM ONE (14:58)
[2018-09-03] MEDS ORDERED: LIDOCAINE 1% INJ-PF (10 MG/ML) 30 ML SDV INFIL ONE (14:58)
[2018-09-03] MEDS ORDERED: ONDANSETRON 4 MG TAB.RAPDIS PO ONE (14:59)
--- NOTE | 2018-09-03 14:59 | ER Document Report ---
ED General - General Chief Complaint: Abdominal Pain Stated Complaint: ABDOMINAL PAIN Time Seen by Provider: 09/03/18 14:51 Notes: Patient is a 23-year-old male that presents to the emergency department for chief complaint of penile pain, and dysuria. Patient states that he has been having pain with urination for the past 3 days, with some abdominal cramping, nausea but no vomiting. He is having urinary frequency as well, denies noting any blood in the urine. Patient states he is sexually active, thinks he may have been exposed to an STD, he has had them in the past. The patient does have male with male intercourse. He does state he uses protection each time, but he still has had STDs in the past. He denies noting any fevers, chills, night sweats, chest pain, shortness of breath or difficulty breathing. He also denies having any diarrhea associated with this. Past Medical History: Denies chronic medical conditions Past Surgical History: Denies surgical history Social History: Admits to smoking cigarettes daily, denies alcohol or drug use. Family History: Reviewed and noncontributory for presenting illness Allergies: Reviewed, see documented allergy list. REVIEW OF SYSTEMS: Other than noted above, the 12 point review of systems was reviewed with the patient and were negative, all pertinent findings are included in the HPI. PHYSICAL EXAMINATION: Vital signs reviewed, nursing noted reviewed. GENERAL: Well-appearing, well-nourished and in no acute distress. HEAD: Atraumatic, normocephalic. EYES: Eyes appear normal, extraocular movements intact, sclera anicteric, conjunctiva are normal. ENT: nares patent, oropharynx clear without exudates. Moist mucous membranes. NECK: Normal range of motion, supple without lymphadenopathy LUNGS: Breath sounds clear to auscultation bilaterally and equal. No wheezes rales or rhonchi. HEART: Regular rate and rhythm without murmurs ABDOMEN: Soft, nontender, normoactive bowel sounds. No rebound, guarding, or rigidity. No masses appreciated. EXTREMITIES: Nontender, good range of motion, no pitting or edema. NEUROLOGICAL: No focal neurological deficits. Moves all extremities spontaneously Motor and sensory grossly intact on exam. PSYCH: Normal mood, normal affect. SKIN: Warm, Dry, normal turgor, no rashes or lesions noted on exposed skin TRAVEL OUTSIDE OF THE [place] IN LAST 30 DAYS: No - Related Data Allergies/Adverse Reactions: amoxicillin Allergy (Intermediate, Verified 09/03/18 14:47) Urticaria Past Medical History - Social History Smoking Status: Never Smoker Chew tobacco use (# tins/day): No Frequency of alcohol use: None Drug Abuse: None Family History: Reviewed & Not Pertinent Patient has suicidal ideation: No Patient has homicidal ideation: No Renal/ Medical History: Denies: Hx Peritoneal Dialysis - Immunizations Hx Diphtheria, Pertussis, Tetanus Vaccination: Yes Physical Exam - Vital signs Vitals: Temp Pulse Resp BP Pulse Ox 98.8 F 66 16 118/65 98 09/03/18 14:39 09/03/18 14:39 09/03/18 14:39 09/03/18 14:39 09/03/18 14:39 Course - Re-evaluation Re-evalutation: Patient seen and examined, vital signs reviewed. Patient was given some Zofran for his nausea. He was tested with a urinalysis, and blood work for his symptoms, including a lipase, blood work was unremarkable, UA was negative as well, urine GC and chlamydia were sent off. And pending. Patient was also treated with IM Rocephin 250 mg, and p.o. azithromycin 1000 mg., For presumed STI exposure or urethritis. Patient did ask about HIV testing, I discussed with him that we do not routinely check for HIV testing except for in certain circumstances, I did discuss with him, that this can be done at the health department, as there is a protocol to follow-up for testing, as it may have a positive test initially, and then need confirmatory testing later on. He is unaware of any specific exposure to an HIV-positive person, I encouraged him to follow-up with the health department if he had further concerns, which the patient was agreeable to. - Vital Signs Vital signs: Temp Pulse Resp BP Pulse Ox 98.0 F 68 16 128/90 H 96 09/03/18 16:20 09/03/18 16:20 09/03/18 16:20 09/03/18 16:20 09/03/18 16:20 - Laboratory Result Diagrams: 09/03/18 15:10 09/03/18 15:10 Laboratory results interpreted by me: 09/03/18 09/03/18 15:10 15:10 RDW 14.1 H Eosinophils % 10.3 H Absolute Eosinophils 0.7 H Carbon Dioxide 34 H Glucose 70 L Discharge - Discharge Clinical Impression: STI (sexually transmitted infection), Nausea, Urethritis Condition: Stable Disposition: HOME, SELF-CARE Instructions: Abdominal Pain ([facility]) Prescriptions: Ondansetron [Zofran Odt 4 mg Tablet] 1 tab PO Q8H PRN #15 tab.rapdis PRN Reason: For Nausea/Vomiting Phenazopyridine HCl [Pyridium 100 Mg Tablet] 100 mg PO TID #9 tablet Referrals: [facility] [Provider Group] - Follow up in 3-5 days [facility] - Follow up as needed
[2018-09-03 15:34] LABS: ABSOLUTE EOSINOPHILS # (AUTO) 0.7 10^3/uL (0.0-0.6); ABSOLUTE LYMPHOCYTES (AUTO) 2.2 10^3/uL (0.5-4.7); ABSOLUTE MONOCYTES (AUTO) 0.6 10^3/uL (0.1-1.4); ABSOLUTE NEUT (AUTO) 3.6 10^3/uL (1.7-8.2); BASOPHILS % (AUTO) 0.6 % (0-2); EOSINOPHILS % (AUTO) 10.3 % (0-6); HEMATOCRIT 44.7 % (37.9-51.0); HEMOGLOBIN 15.5 g/dL (13.5-17.0); MEAN CORPUSCULAR HEMOGLOBIN 29.4 pg (27.0-33.4); MEAN CORPUSCULAR HGB CONC 34.6 g/dL (32.0-36.0); MEAN CORPUSCULAR VOLUME 85 fl (80-97); MONOCYTES % (AUTO) 7.8 % (3-13); PLATELET COUNT 254 10^3/uL (150-450); RED BLOOD COUNT 5.27 10^6/uL (4.35-5.55); RED CELL DISTRIBUTION WIDTH 14.1 % (11.5-14.0); SEGMENTED NEUTROPHILS % (AUTO) 50.3 % (42-78); TOTAL CELLS COUNTED % (AUTO) 100 %; WHITE BLOOD COUNT 7.2 10^3/uL (4.0-10.5)
[2018-09-03 15:39] LABS: APPEARANCE,URINE CLEAR; BILIRUBIN,URINE NEGATIVE (NEGATIVE); COLOR,URINE YELLOW; GLUCOSE, URINE NEGATIVE (NEGATIVE); KETONES,URINE NEGATIVE (NEGATIVE); LEUKOCYTE ESTERASE,URINE NEGATIVE (NEGATIVE); NITRITE,URINE NEGATIVE (NEGATIVE); PROTEIN,URINE NEGATIVE (NEGATIVE); URINE SPECIFIC GRAVITY 1.016; UROBILINOGEN,URINE NEGATIVE mg/dL (<2.0)
[2018-09-03 15:47] LABS: ALANINE AMINOTRANSFERASE 26 U/L (21-72); ALBUMIN 4.2 g/dL (3.5-5.0); ALKALINE PHOSPHATASE 49 U/L (38-126); ANION GAP 8 (5-19); ASPARTATE AMINO TRANSFERASE 23 U/L (17-59); BILIRUBIN,DIRECT 0.2 mg/dL (0.0-0.4); BILIRUBIN,TOTAL 0.5 mg/dL (0.2-1.3); BLOOD UREA NITROGEN 12 mg/dL (7-20); CALCIUM 9.6 mg/dL (8.4-10.2); CARBON DIOXIDE 34 mmol/L (22-30); CHLORIDE 102 mmol/L (98-107); GLUCOSE 70 mg/dL (75-110); POTASSIUM 4.4 mmol/L (3.6-5.0); SODIUM 143.5 mmol/L (137-145); TOTAL PROTEIN 7.1 g/dL (6.3-8.2)
[2018-09-03 16:21] VITALS: BP 128/90
[2018-09-03 17:06] LABS: CHLAM PCR NOT DETECTED (NOT DETECT); GON PCR NOT DETECTED (NOT DETECT)
== END 2018-09-03 16:32 | disposition home or self-care (01) ==
LOC: ER 14:32
DX: A64 Unspecified sexually transmitted disease (principal); N34.2 Other urethritis; R11.0 Nausea; R35.0 Frequency of micturition; R30.0 Dysuria; F17.210 Nicotine dependence, cigarettes, uncomplicated; Z88.0 Allergy status to penicillin
CPT/HCPCS: 99284; 96372; 36415; 87086; 85025; 80053; 81001; 87491; 87591; S0119; J3490; J0696

== ENCOUNTER 2018-09-14 09:45 | Emergency (ER) | payer SELFPAY ==
--- NOTE | 2018-09-14 10:51 | ER Document Report ---
ED ENT - General Chief Complaint: Sore Throat Stated Complaint: BACK PAIN/THROAT PAIN Time Seen by Provider: 09/14/18 10:13 Mode of Arrival: Ambulatory Information source: Patient Notes: 23-year-old male presents to ED for complaint of cough cold congestion runny nose sore throat times 3 days. He states he is also had a headache. He also complains of a bump on the back of the head that looks to be a hair bump. He is alert oriented respirations regular and unlabored speaking in full sentences walks with a even steady gait. After a resulted all of the patient's test then he stated that he had right flank/abdominal pain that he has had for weeks anyone to find out what this was caused from. Denies any nausea or vomiting or fever. TRAVEL OUTSIDE OF THE [place] IN LAST 30 DAYS: No - HPI Patient complains to provider of: Nose problem, Throat problem, Other - At time of discharge he states he also has right flank and abdominal pain he has had for several weeks Onset: Other Onset/Duration: Gradual - 2 days Quality of pain: Achy, Sharp Severity: Severe Pain Level: 3 Context: Recent Illness Location of pain: Nose, Sinus, Throat Associated symptoms: Congestion, Cough, Fever, Runny nose, Sinus pain, Sinus drainage, Sore throat, Other - Right abdominal/flank pain that he has had for weeks has nausea or vomiting or diarrhea Similar symptoms previously: Yes Recently seen / treated by doctor: No - Related Data Allergies/Adverse Reactions: amoxicillin Allergy (Intermediate, Verified 09/03/18 14:47) Urticaria Past Medical History - General Information source: Patient - Social History Smoking Status: Former Smoker Cigarette use (# per day): No Chew tobacco use (# tins/day): No Smoking Education Provided: No Frequency of alcohol use: Occasional Drug Abuse: Marijuana Lives with: Family Family History: Reviewed & Not Pertinent Patient has suicidal ideation: No Patient has homicidal ideation: No - Past Medical History Cardiac Medical History: Reports: None Pulmonary Medical History: Reports: None EENT Medical History: Reports: None Neurological Medical History: Reports: None Endocrine Medical History: Reports: None Renal/ Medical History: Reports: None Malignancy Medical History: Reports None GI Medical History: Reports: None Musculoskeletal Medical History: Reports None Skin Medical History: Reports None Psychiatric Medical History: Reports: None Traumatic Medical History: Reports: None Infectious Medical History: Reports: None Surgical Hx: Negative Past Surgical History: Reports: None - Immunizations Immunizations up to date: Yes Hx Diphtheria, Pertussis, Tetanus Vaccination: Yes Review of Systems - Review of Systems Constitutional: Fever, Recent illness EENT: Nose pain, Nose congestion, Nose discharge, Sinus pressure, Sinus discharge, Throat pain Cardiovascular: No symptoms reported Respiratory: Cough Gastrointestinal: Abdominal pain - Right mid. denies: Diarrhea, Nausea, Vomiting Genitourinary: Flank pain - Right Male Genitourinary: No symptoms reported Musculoskeletal: No symptoms reported Skin: No symptoms reported Hematologic/Lymphatic: No symptoms reported Neurological/Psychological: No symptoms reported -: Yes All other systems reviewed and negative Physical Exam - Vital signs Vitals: Temp Pulse Resp BP Pulse Ox 99 F 94 18 135/78 H 96 09/14/18 09:52 09/14/18 09:52 09/14/18 09:52 09/14/18 09:52 09/14/18 09:52 Interpretation: Normal - General General appearance: Appears well, Alert - HEENT Head: Normocephalic, Atraumatic Eyes: Normal Pupils: PERRL Ears: Normal External canal: Normal Tympanic membrane: Normal Sinus: Normal Nasal: Purulent discharge, Swelling Mouth/Lips: Normal Mucous membranes: Normal Pharynx: Erythema, Post nasal drainage Neck: Anterior cervical chain - Respiratory Respiratory status: No respiratory distress Chest status: Nontender Breath sounds: Normal Chest palpation: Normal - Cardiovascular Rhythm: Regular Heart sounds: Normal auscultation Murmur: No - Abdominal Inspection: Normal Distension: No distension Bowel sounds: Normal Tenderness: Tender - Right mid upper abdomen pain. No: McBurney's point, Stock 's sign, Guarding, Rebound Organomegaly: No organomegaly. No: Hepatomegaly, Splenomegaly, Mass - Back Back: Normal, Nontender - Extremities General upper extremity: Normal inspection, Nontender, Normal color, Normal ROM , Normal temperature General lower extremity: Normal inspection, Nontender, Normal color, Normal ROM , Normal temperature, Normal weight bearing. No: Keerthi's sign - Neurological Neuro grossly intact: Yes Cognition: Normal Orientation: AAOx4 [place] Coma Scale Eye Opening: Spontaneous [place] Coma Scale Verbal: Oriented [place] Coma Scale Motor: Obeys Commands [place] Coma Scale Total: 15 Speech: Normal Motor strength normal: LUE, RUE, LLE, RLE Sensory: Normal - Psychological Associated symptoms: Normal affect, Normal mood - Skin Skin Temperature: Warm Skin Moisture: Dry Skin Color: Normal Course - Re-evaluation Re-evalutation: 09/14/18 20:35 Patient will came to the emergency room for symptoms of a upper respiratory infection while I was preparing to discharge and he complained of right mid to upper abdominal pain with right flank pain. Labs urine and CT were completed which were negative. The results of these were given to the patient to follow- up with primary doctor. Patient states he had bowel movement today but had off and on constipation. Patient was instructed to follow-up with his primary doctor and to use medications for his constipation. Patient was discharged home. - Vital Signs Vital signs: Temp Pulse Resp BP Pulse Ox 99 F 60 16 117/71 98 09/14/18 09:52 09/14/18 13:56 09/14/18 13:56 09/14/18 13:56 09/14/18 13:56 - Laboratory Result Diagrams: 09/14/18 11:35 09/14/18 11:35 Laboratory results interpreted by me: 09/14/18 09/14/18 11:35 11:35 Eosinophils % 10.1 H Absolute Eosinophils 0.8 H Carbon Dioxide 31 H - Diagnostic Test Radiology reviewed: Image reviewed, Reports reviewed Discharge - Discharge Clinical Impression: Viral sore throat URI (upper respiratory infection) Qualifiers: URI type: unspecified URI Qualified Code(s): J06.9 - Acute upper respiratory infection, unspecified Abdominal pain Qualifiers: Abdominal location: right upper quadrant Qualified Code(s): R10.11 - Right upper quadrant pain Condition: Stable Disposition: HOME, SELF-CARE Instructions: Family Physicians / Practices Additional Instructions: ABDOMINAL PAIN: There are many causes of abdominal pain. Pain can mean a serious problem requiring surgery (such as appendicitis). It can also be an innocent problem that goes away on its own (such as a viral infection). Often, time must pass to determine the cause of pain. The physician does not feel that hospitalization is necessary, at present. Things may change within the next 24 hours. Call the doctor or come back for re- examination if any problems occur, such as: (1) Pain that becomes more severe, steady, or becomes concentrated in one specific area. Also, pain that is more severe with movement or coughing. (2) Vomiting that persists or becomes more frequent. (3) Blood in the vomitus, urine, or bowel movements. Blood in the stool may have a tarry or black appearance. (4) Shaking chills or fever greater than 100 degrees F. (5) The abdomen becomes more distended or swollen. (6) Bowel movements cease. (7) Failure to improve as expected. SORE THROAT: Sore throats may be caused by viruses, bacteria, or fungi. Most are due to a virus, and must get better on their own. Bacterial sore throats, particularly those due to "strep," need treatment with antibiotics. If an antibiotic is prescribed, be sure to take the medication for a full 10 days. Failure to take the antibiotic can result in complications such as rheumatic fever. Sometimes, an injection of antibiotics is given instead of pills or liquid. This single "shot" is equal in effectiveness to the oral medication. To relieve symptoms, take acetaminophen for pain. Sip clear liquids frequently, or eat popsicles or ice chips. Anesthetic sprays or lozenges may help. Make sure the air in the room is not too dry. Avoid using decongestants or antihistamines. Call the doctor if there is no improvement in two days, or if you have difficulty breathing, increasing throat pain, high fever, rash, or frequent vomiting. UPPER RESPIRATORY ILLNESS: You have a viral infection of the respiratory passages -- a "cold." This common infection causes nasal congestion, drainage, and often sore throat and cough. It is highly contagious. The disease usually lasts about 10 to 14 days. There is no "cure" for the viral infection -- it must run its course. If there is a complication, such as bacterial infection in the nose, sinuses, middle ear, or bronchial tubes, antibiotics may be required. The antibiotics won't affect the virus. Drink plenty of fluids. A humidifier may help. An expectorant medication or decongestant may make you more comfortable. Use acetaminophen or ibuprofen for fever or aches. See the doctor if fever persists over two days, if there is any significant worsening of your symptoms, or if you simply fail to improve as expected. DECONGESTANT MEDICATION: A decongestant medicine has been suggested. Often this medicine is combined in the same tablet with an antihistamine or expectorant. This type of medicine is helpful in treating a bad cold or sinus condition, as well as in treatment of the nasal congestion of hay fever. It is not of much benefit for lung infections. Decongestant medicines are related to stimulants. They can cause an increase in blood pressure and heart rate. Persons with heart disease and high blood pressure should not take decongestants without discussing this with the physician. If you develop palpitations, chest pain, headache, or tremors, stop the medicine and consult your physician. COUGH-SUPPRESSANT & EXPECTORANT MEDICATION: You are to use a cough medication as needed for relief of symptoms. This medicine is a combination of an expectorant (to make the mucous thinner and more easily "coughed up") and a cough suppressant (to reduce the frequency of coughing). The cough-suppressant medicine is related to narcotics. You may experience mild nausea and sleepiness. Some patients who are very sensitive to narcotics may have stomach pain from this medicine. Taking the medicine with food reduces these side effects. Do not drive or work with machinery until you know how this medicine affects you. The expectorant should have no side effects. Iodine-containing expectorants (such as organidin) should not be taken by persons with active thyroid disease unless approved by your doctor. Call the doctor if you develop shortness of breath, hives, rash, itching, lightheadedness, or severe nausea and vomiting. USE OF ACETAMINOPHEN (Tylenol): Acetaminophen may be taken for pain relief or fever control. It's much safer than aspirin, offering a wider range of "safe" dosages. It is safe during . Some brand names are Tylenol, Panadol, Datril, Anacin 3, Tempra, and Liquiprin. Acetaminophen can be repeated every four hours. The following are maximum recommended dosages: >89 pounds or adults 650 mg to 900 mg Acetaminophen can be repeated every four hours. Maximum dose not to exceed 4000 mg a day. Claritin 10 mg, Sudafed 30 mg, Mucinex 600 mg, ibuprofen 600 mg, Flonase 2 sprays each nostril twice a day, and salt and soda solution will help you with the symptoms. These are all [id number] medications. Salt and soda solution 1 quart of water 1 tablespoon of salt 1 teaspoon of baking soda Mixed 3 ingredients together and boil for 1 minute Placed in a covered quart jar Use 1/2 ounce of cold solution to gargle 3 times a day FOLLOW-UP CARE: If you have been referred to a physician for follow-up care, call the physician s office for an appointment as you were instructed or within the next two days. If you experience worsening or a significant change in your symptoms, notify the physician immediately or return to the Emergency Department at any time for re-evaluation. Forms: Elevated Blood Pressure
--- NOTE | 2018-09-14 11:56 | RADIOLOGY REPORT (SQ) ---
EXAM DESCRIPTION: CT LTD RENAL STONE PROTOCOL ON COMPLETED DATE/TIME: 09/14/2018 11:46 am REASON FOR STUDY: right flank/abd pain COMPARISON: CT abdomen pelvis 04/27/2018, 10/06/2014 TECHNIQUE: CT scan of the abdomen and pelvis performed without intravenous or oral contrast. Images reviewed with lung, soft tissue, and bone windows. Reconstructed coronal and sagittal MPR images revi ewed. All images stored on PACS. All CT scanners at this facility use dose modulation, iterative reconstruction, and/or weight based d osing when appropriate to reduce radiation dose to as low as reasonably achievable (ALARA). [facility]: Dose Right [facility]: CareDose [facility]: Dose Right [facility]: Teradose 4D [facility]: Smart SpeakingPal RADIATION DOSE: CT Rad equipment meets quality standard of care and radiation dose reduction techniq ues were employed. CTDIvol: 9.3 mGy. DLP: 503 mGy-cm.mGy. LIMITATIONS: None. FINDINGS: LOWER CHEST: No significant findings. No nodules or infiltrates. NON-CONTRASTED LIVER, SPLEEN, ADRENALS: Evaluation limited by lack of IV contrast. No identified sign ificant masses. PANCREAS: No masses. No peripancreatic inflammatory changes. GALLBLADDER: No identified stones by CT criteria. No inflammatory changes to suggest cholecystitis. RIGHT KIDNEY AND URETER: No suspicious masses. Assessment limited by lack of IV contrast. No signif icant calcifications. No hydronephrosis or hydroureter. LEFT KIDNEY AND URETER: No suspicious masses. Assessment limited by lack of IV contrast. No signifi cant calcifications. No hydronephrosis or hydroureter. AORTA AND RETROPERITONEUM: No aneurysm. No retroperitoneal masses or adenopathy. BOWEL AND PERITONEAL CAVITY: No obvious masses or inflammatory changes. No free fluid. APPENDIX: Normal. PELVIS, BLADDER, AND ABDOMINAL WALL:No abnormal masses. No free fluid. Bladder normal. BONES: No significant findings. OTHER: No other significant finding. IMPRESSION: NO SIGNIFICANT OR ACUTE PROCESS IN THE ABDOMEN OR PELVIS. COMMENT: Quality ID # [id number]: Final reports with documentation of one or more dose reduction techniques (e.g., Automated exposure control, adjustment of the mA and/or kV according to patient size, use of iterative reconstruction technique) TECHNICAL DOCUMENTATION: JOB ID: [id number] [employer]- All Rights Reserved Reading location - IP/workstation name: [email or web address]
[2018-09-14 11:58] LABS: ABSOLUTE EOSINOPHILS # (AUTO) 0.8 10^3/uL (0.0-0.6); ABSOLUTE LYMPHOCYTES (AUTO) 1.6 10^3/uL (0.5-4.7); ABSOLUTE MONOCYTES (AUTO) 0.7 10^3/uL (0.1-1.4); ABSOLUTE NEUT (AUTO) 4.8 10^3/uL (1.7-8.2); BASOPHILS % (AUTO) 0.4 % (0-2); EOSINOPHILS % (AUTO) 10.1 % (0-6); HEMATOCRIT 44.2 % (37.9-51.0); HEMOGLOBIN 15.5 g/dL (13.5-17.0); LYMPHOCYTES % (AUTO) 20.5 % (13-45); MEAN CORPUSCULAR HEMOGLOBIN 29.8 pg (27.0-33.4); MEAN CORPUSCULAR HGB CONC 35.1 g/dL (32.0-36.0); MEAN CORPUSCULAR VOLUME 85 fl (80-97); MONOCYTES % (AUTO) 8.4 % (3-13); PLATELET COUNT 227 10^3/uL (150-450); RED BLOOD COUNT 5.22 10^6/uL (4.35-5.55); RED CELL DISTRIBUTION WIDTH 13.4 % (11.5-14.0); SEGMENTED NEUTROPHILS % (AUTO) 60.6 % (42-78); TOTAL CELLS COUNTED % (AUTO) 100 %; WHITE BLOOD COUNT 7.9 10^3/uL (4.0-10.5)
[2018-09-14 12:22] LABS: ALANINE AMINOTRANSFERASE 34 U/L (21-72); ALBUMIN 4.4 g/dL (3.5-5.0); ALKALINE PHOSPHATASE 61 U/L (38-126); ANION GAP 8 (5-19); ASPARTATE AMINO TRANSFERASE 42 U/L (17-59); BILIRUBIN,DIRECT 0.3 mg/dL (0.0-0.4); BILIRUBIN,TOTAL 0.6 mg/dL (0.2-1.3); BLOOD UREA NITROGEN 18 mg/dL (7-20); CALCIUM 9.5 mg/dL (8.4-10.2); CARBON DIOXIDE 31 mmol/L (22-30); CHLORIDE 103 mmol/L (98-107); GLUCOSE 78 mg/dL (75-110); LIPASE 59.2 U/L (23-300); POTASSIUM 4.6 mmol/L (3.6-5.0); SODIUM 142.2 mmol/L (137-145); TOTAL PROTEIN 7.6 g/dL (6.3-8.2)
[2018-09-14 12:53] LABS: APPEARANCE,URINE CLEAR; BILIRUBIN,URINE NEGATIVE (NEGATIVE); COLOR,URINE YELLOW; GLUCOSE, URINE NEGATIVE (NEGATIVE); KETONES,URINE NEGATIVE (NEGATIVE); LEUKOCYTE ESTERASE,URINE NEGATIVE (NEGATIVE); NITRITE,URINE NEGATIVE (NEGATIVE); PROTEIN,URINE NEGATIVE (NEGATIVE); URINE SPECIFIC GRAVITY 1.021; UROBILINOGEN,URINE NEGATIVE mg/dL (<2.0)
[2018-09-14 14:22] VITALS: BP 117/71
== END 2018-09-14 14:22 | disposition home or self-care (01) ==
LOC: ER 09:45
DX: J06.9 Acute upper respiratory infection, unspecified (principal); J02.9 Acute pharyngitis, unspecified; B97.89 Other viral agents as the cause of diseases classified elsewhere; R10.11 Right upper quadrant pain; M54.9 Dorsalgia, unspecified; R05 Cough; R09.81 Nasal congestion; R09.89 Other specified symptoms and signs involving the circulatory and respiratory systems; R10.9 Unspecified abdominal pain; Z87.891 Personal history of nicotine dependence
CPT/HCPCS: 36415; 76380; 80053; 81001; 83690; 85025; 87070; 87086; 87880; 99283

== ENCOUNTER 2018-10-23 11:10 | Emergency (ER) | payer SELFPAY ==
--- NOTE | 2018-10-23 11:41 | ER Document Report ---
ED Medical Screen (RME) - General Chief Complaint: Pelvic Pain Stated Complaint: PELVIC PAIN Time Seen by Provider: 10/23/18 11:39 Mode of Arrival: Ambulatory Information source: Patient TRAVEL OUTSIDE OF THE [place] IN LAST 30 DAYS: No - HPI Patient complains to provider of: Abd/pelvic pain Onset: Other - pt with several week h/o intermittent RLQ and pelvic pain. Now with blood in his semen - Related Data Allergies/Adverse Reactions: amoxicillin Allergy (Intermediate, Verified 09/03/18 14:47) Urticaria Past Medical History - Social History Chew tobacco use (# tins/day): No Frequency of alcohol use: Occasional Drug Abuse: Marijuana Renal/ Medical History: Denies: Hx Peritoneal Dialysis - Immunizations Immunizations up to date: Yes Hx Diphtheria, Pertussis, Tetanus Vaccination: Yes Physical Exam - Vital signs Vitals: Temp Pulse Resp BP Pulse Ox 98.4 F 68 16 131/82 H 100 10/23/18 11:32 10/23/18 11:32 10/23/18 11:32 10/23/18 11:32 10/23/18 11:32 Course - Vital Signs Vital signs: Temp Pulse Resp BP Pulse Ox 98.4 F 68 16 131/82 H 100 10/23/18 11:32 10/23/18 11:32 10/23/18 11:32 10/23/18 11:32 10/23/18 11:32
[2018-10-23 12:11] LABS: ABSOLUTE EOSINOPHILS # (AUTO) 0.6 10^3/uL (0.0-0.6); ABSOLUTE LYMPHOCYTES (AUTO) 1.9 10^3/uL (0.5-4.7); ABSOLUTE MONOCYTES (AUTO) 0.6 10^3/uL (0.1-1.4); ABSOLUTE NEUT (AUTO) 3.9 10^3/uL (1.7-8.2); BASOPHILS % (AUTO) 0.4 % (0-2); EOSINOPHILS % (AUTO) 9.3 % (0-6); HEMATOCRIT 48.8 % (37.9-51.0); HEMOGLOBIN 17.1 g/dL (13.5-17.0); LYMPHOCYTES % (AUTO) 26.8 % (13-45); MEAN CORPUSCULAR HEMOGLOBIN 29.4 pg (27.0-33.4); MEAN CORPUSCULAR VOLUME 84 fl (80-97); MONOCYTES % (AUTO) 8.1 % (3-13); PLATELET COUNT 270 10^3/uL (150-450); RED CELL DISTRIBUTION WIDTH 13.7 % (11.5-14.0); SEGMENTED NEUTROPHILS % (AUTO) 55.4 % (42-78); TOTAL CELLS COUNTED % (AUTO) 100 %; WHITE BLOOD COUNT 6.9 10^3/uL (4.0-10.5)
[2018-10-23 12:15] LABS: APPEARANCE,URINE SLIGHTLY-CLOUDY; BILIRUBIN,URINE NEGATIVE (NEGATIVE); COLOR,URINE YELLOW; GLUCOSE, URINE NEGATIVE (NEGATIVE); KETONES,URINE NEGATIVE (NEGATIVE); LEUKOCYTE ESTERASE,URINE NEGATIVE (NEGATIVE); NITRITE,URINE NEGATIVE (NEGATIVE); PROTEIN,URINE NEGATIVE (NEGATIVE); URINE SPECIFIC GRAVITY 1.019; UROBILINOGEN,URINE NEGATIVE mg/dL (<2.0)
--- NOTE | 2018-10-23 12:19 | RADIOLOGY REPORT (SQ) ---
EXAM DESCRIPTION: CT ABD/PELVIS WITH IV ONLY COMPLETED DATE/TIME: 10/23/2018 12:06 pm REASON FOR STUDY: abd pain COMPARISON: None. TECHNIQUE: CT scan of the abdomen and pelvis performed using helical scanning technique with dynamic intravenous contrast injection. No oral contrast. Images reviewed with lung, soft tissue, and bone windows. Reconstructed coronal and sagittal MPR images reviewed. Delayed images for evaluation of the urinary system also acquired. All images stored on PACS. All CT scanners at this facility use dose modulation, iterative reconstruction, and/or weight based d osing when appropriate to reduce radiation dose to as low as reasonably achievable (ALARA). [facility]: Dose Right [facility]: CareDose [facility]: Dose Right [facility]: Teradose 4D [facility]: [id number] CONTRAST TYPE AND DOSE: contrast/concentration: Isovue 350.00 mg/ml; Total Contrast Delivered: 100.0 ml; Total Saline Delivered: 72.0 ml RENAL FUNCTION: None required. The patient is less than 50 years old. RADIATION DOSE: CT Rad equipment meets quality standard of care and radiation dose reduction techniq ues were employed. CTDIvol: NaN - NaN mGy. DLP: 0 mGy-cm.. LIMITATIONS: None. FINDINGS: LOWER CHEST: No significant findings. No nodules or infiltrates. LIVER: Normal size. No masses. No dilated ducts. SPLEEN: Normal size. No focal lesions. PANCREAS: No masses. No significant calcifications. No adjacent inflammation or peripancreatic fluid collections. Pancreatic duct not dilated. GALLBLADDER: No identified stones by CT criteria. No inflammatory changes to suggest cholecystitis. ADRENAL GLANDS: No significant masses or asymmetry. RIGHT KIDNEY AND URETER: No solid masses. No significant calcifications. No hydronephrosis or hyd roureter. LEFT KIDNEY AND URETER: No solid masses. No significant calcifications. No hydronephrosis or hydr oureter. AORTA AND VESSELS: No aneurysm. No dissection. Renal arteries, SMA, celiac without stenosis. RETROPERITONEUM: No retroperitoneal adenopathy, hemorrhage or masses. BOWEL AND PERITONEAL CAVITY: No masses or inflammatory changes. No free fluid or peritoneal masses. APPENDIX: Normal. PELVIS: No mass. No free fluid. Normal bladder. ABDOMINAL WALL: No masses. No hernias. BONES: No significant or acute findings. OTHER: No other significant finding. IMPRESSION: NO SIGNIFICANT OR ACUTE FINDING IN THE ABDOMEN OR PELVIS ON CT SCAN WITH IV CONTRAST. TECHNICAL DOCUMENTATION: JOB ID: [id number] Quality ID # [id number]: Final reports with documentation of one or more dose reduction techniques (e.g., Au tomated exposure control, adjustment of the mA and/or kV according to patient size, use of iterative reconstruction technique) 2010 [employer]- All Rights Reserved Reading location - IP/workstation name: [email or web address]
[2018-10-23 12:24] LABS: ALANINE AMINOTRANSFERASE 33 U/L (21-72); ALBUMIN 4.7 g/dL (3.5-5.0); ALKALINE PHOSPHATASE 60 U/L (38-126); ANION GAP 9 (5-19); ASPARTATE AMINO TRANSFERASE 29 U/L (17-59); BILIRUBIN,TOTAL 0.6 mg/dL (0.2-1.3); BLOOD UREA NITROGEN 15 mg/dL (7-20); CALCIUM 9.9 mg/dL (8.4-10.2); CARBON DIOXIDE 30 mmol/L (22-30); CHLORIDE 100 mmol/L (98-107); GLUCOSE 90 mg/dL (75-110); POTASSIUM 4.3 mmol/L (3.6-5.0); SODIUM 138.9 mmol/L (137-145); TOTAL PROTEIN 7.6 g/dL (6.3-8.2)
[2018-10-23 13:42] LABS: CHLAM PCR NOT DETECTED (NOT DETECT); GON PCR NOT DETECTED (NOT DETECT)
--- NOTE | 2018-10-23 13:53 | ER Document Report ---
ED General - General Chief Complaint: Pelvic Pain Stated Complaint: PELVIC PAIN Time Seen by Provider: 10/23/18 11:39 Mode of Arrival: Ambulatory Notes: Patient is a 23-year-old male who presents to the emergency department with a chief complaint of pelvic pain. He said his pain has been going on for the past couple months. He is been seen multiple times at the [facility] for "bacterial infections" and has been treated with antibiotics. He states that he continues to have the pelvic pain. He also states that he has been straining when he has a bowel movement. His last bowel movement was today. He states that he has been treated once for chlamydia. TRAVEL OUTSIDE OF THE [place] IN LAST 30 DAYS: No - Related Data Allergies/Adverse Reactions: amoxicillin Allergy (Intermediate, Verified 09/03/18 14:47) Urticaria Past Medical History - General Information source: Patient - Social History Smoking Status: Never Smoker Chew tobacco use (# tins/day): No Frequency of alcohol use: Occasional Drug Abuse: Marijuana Family History: Reviewed & Not Pertinent Patient has suicidal ideation: No Patient has homicidal ideation: No Renal/ Medical History: Denies: Hx Peritoneal Dialysis - Immunizations Immunizations up to date: Yes Hx Diphtheria, Pertussis, Tetanus Vaccination: Yes Review of Systems - Review of Systems Notes: REVIEW OF SYSTEMS: CONSTITUTIONAL : Denies recent illness. Denies recent unintentional weight loss. Denies fever, chills, or sweats. EENT: Denies eye, ear, throat, or mouth pain, discharge, or symptoms. Denies nasal or sinus congestion. CARDIOVASCULAR: Denies chest pain. RESPIRATORY: Denies shortness of breath, cough, congestion, difficulty breathing, or wheezing. GASTROINTESTINAL: See HPI GENITOURINARY: See HPI MUSCULOSKELETAL: Denies neck and back pain. Denies joint pain or swelling. SKIN: Denies rash, itchiness, or lesions HEMATOLOGIC : Denies easy bruising or bleeding. LYMPHATIC: Denies swollen, painful, enlarged glands. NEUROLOGICAL: Denies no numbness or tingling denies weakness. Denies headache. Denies altered mental status. Denies alteration in speech. PSYCHIATRIC: Denies stress, anxiety, alteration in sleep patterns, or depression. All other systems reviewed and negative. Physical Exam - Vital signs Vitals: Temp Pulse Resp BP Pulse Ox 98.4 F 68 16 131/82 H 100 10/23/18 11:32 01/20/19 11:32 10/23/18 11:32 10/23/18 11:32 10/23/18 11:32 - Notes Notes: PHYSICAL EXAMINATION: GENERAL: Appears well, healthy, well-nourished, no acute distress. HEAD: Normocephalic, atraumatic. EYES: PERRL, conjunctiva normal, all extraocular movements intact, sclera nonicteric ENT: Moist mucous membranes. NECK: Supple, no noticeable swelling, redness, rash. Normal range of motion. LUNGS: Equal breath sounds bilaterally and clear to auscultation. No wheezes rales or rhonchi. CARDIOVASCULAR: S1-S2, regular rate, regular rhythm. Radial pulses 2+, normal. ABDOMEN: Normoactive bowel sounds. Soft, mild tenderness noted throughout abdomen, no guarding, no rebound tenderness, and no masses palpated. Bowel loops feel full of stool. EXTREMITIES: Normal strength and range of motion, no pitting or edema. No cyanosis. NEUROLOGICAL: Moves all extremities upon command. Strength 5/5 in all extremities. PSYCH: Normal mood, normal affect. SKIN: Warm, dry. No rash, lesions, ulcerations noted. Normal skin turgor. Course - Re-evaluation Re-evalutation: 10/23/18 13:[address] of the abdomen was ordered in triage along with labs. His labs are unrema rkable at this time. His gonorrhea and chlamydia are negative. I looked at his CT of his abdomen and it appears that he has a large amount of stool in his abdomen. He does not have a perforated bowel. He will be given magnesium citrate here in the emergency department and he will drink it at home. He will also be sent home with Elsy. Verbal discharge instructions were given to the patient. They verbalized understanding. They are stable for discharge. - Vital Signs Vital signs: Temp Pulse Resp BP Pulse Ox 98 F 66 16 128/78 H 99 10/23/18 14:51 10/23/18 14:51 10/23/18 14:51 10/23/18 14:51 10/23/18 14:51 - Laboratory Result Diagrams: 10/23/18 11:52 10/23/18 11:52 Laboratory results interpreted by me: 10/23/18 11:52 RBC 5.80 H Hgb 17.1 H Eosinophils % 9.3 H Discharge - Discharge Clinical Impression: Pelvic pain Constipation Qualifiers: Constipation type: unspecified constipation type Qualified Code(s): K59.00 - Constipation, unspecified Condition: Stable Disposition: HOME, SELF-CARE Additional Instructions: You were seen today in the emergency department for pelvic pain. Your labs are normal. It appears that you have a lot of stool in your colon. You have been given magnesium citrate here in the emergency department. Drink half the bottle at home and wait to have a bowel movement, if you do not have a bowel movement 4 hours, would drink the rest of the bottle. If you have worsening symptoms, have worsening abdominal pain, or have any symptoms that are worrisome to you, please return to the emergency department. Prescriptions: Dicyclomine HCl [Bentyl 20 mg Tablet] 20 mg PO QID PRN #20 tablet PRN Reason:
[2018-10-23] MEDS ORDERED: MAGNESIUM CITRATE 296 ML BOTTLE PO ONE (13:57)
[2018-10-23] MEDS ORDERED: DICYCLOMINE HCL 20 MG TABLET PO ONE (13:58)
[2018-10-23 15:00] VITALS: BP 128/78
== END 2018-10-23 14:51 | disposition home or self-care (01) ==
LOC: ER 11:10
DX: K59.00 Constipation, unspecified (principal); R10.2 Pelvic and perineal pain; F12.10 Cannabis abuse, uncomplicated; R10.817 Generalized abdominal tenderness; Z88.0 Allergy status to penicillin
CPT/HCPCS: 99284; 36415; 85025; 80053; 81001; 87491; 87591; 74177; J3490 ×2

== ENCOUNTER 2018-11-05 08:52 | Emergency (ER) | payer SELFPAY ==
[2018-11-05 08:56] VITALS: BP 142/85
[2018-11-05] MEDS ORDERED: IBUPROFEN 800 MG TABLET PO ONE (09:49)
--- NOTE | 2018-11-05 09:53 | ER Document Report ---
HPI - HPI Time Seen by Provider: 11/05/18 09:27 Onset/Duration: Persistent Quality of pain: Achy Pain Level: 4 Context: Patient complains of tender bump to left occipital scalp area and lump below the right ear. Patient states area to the scalp developed yesterday. Patient states area underneath his right ear has been there for the past month. Patient denies any fever. Associated Symptoms: denies: Nonproductive cough, Fever, Headache Exacerbated by: Denies Relieved by: Denies Similar symptoms previously: No Recently seen / treated by doctor: No - ROS ROS below otherwise negative: Yes Systems Reviewed and Negative: Yes All other systems reviewed and negative - CONSTITUTIONAL Constitutional: DENIES: Fever, Chills - EENT EENT: DENIES: Sore Throat, Ear Pain - NEURO Neurology: DENIES: Headache - RESPIRATORY Respiratory: DENIES: Coughing - GASTROINTESTINAL Gastrointestinal: DENIES: Nausea - MUSCULOSKELETAL Musculoskeletal: DENIES: Neck Pain - DERM Skin Color: Normal Notes: Tender lump to scalp and below right ear Past Medical History - General Information source: Patient - Social History Smoking Status: Never Smoker Frequency of alcohol use: None Drug Abuse: Marijuana Occupation: None Family History: Reviewed & Not Pertinent - Medical History Medical History: Negative Renal/ Medical History: Denies: Hx Peritoneal Dialysis Surgical Hx: Negative - Immunizations Immunizations up to date: Yes Hx Diphtheria, Pertussis, Tetanus Vaccination: Yes Vertical Provider Document - CONSTITUTIONAL Agree With Documented VS: Yes Exam Limitations: No Limitations General Appearance: WD/WN, No Apparent Distress - INFECTION CONTROL TRAVEL OUTSIDE OF THE [place] IN LAST 30 DAYS: No - HEENT HEENT: Atraumatic, Normocephalic Notes: Patient with a small 1 cm cystic lesion just inferior of right pinna, patient with additional tender 1 cm mobile palpable lesion to left occipital area of scalp concerning for cyst versus lymph node. No overlying skin erythema or inflammation. No scalp wounds or lesions. - NECK Neck: Normal Inspection, Supple. negative: Lymphadenopathy-Left, Lymphadenopathy-Right - RESPIRATORY Respiratory: Breath Sounds Normal, No Respiratory Distress - CARDIOVASCULAR Cardiovascular: Regular Rate, Regular Rhythm, No Murmur - MUSCULOSKELETAL/EXTREMETIES Musculoskeletal/Extremeties: MAEW, FROM - NEURO Level of Consciousness: Awake, Alert, Appropriate Motor/Sensory: No Motor Deficit - DERM Integumentary: Warm, Dry. negative: Abscess Course - Re-evaluation Re-evalutation: 11/05/18 09:50 Patient with tender area to left occipital scalp concerning for inflamed lymph node versus cystic lesion. Patient with additional cyst below right ear with no overlying erythema, no concern for abscess at this time. - Vital Signs Vital signs: Temp Pulse Resp BP Pulse Ox 98.7 F 75 14 142/85 H 96 11/05/18 08:55 11/05/18 08:55 11/05/18 08:55 11/05/18 08:55 11/05/18 08:55 Discharge - Discharge Clinical Impression: Epidermal cyst, Lymph node symptom Condition: Stable Disposition: HOME, SELF-CARE Instructions: Lymphadenopathy ([facility]) Additional Instructions: Return immediately for any new or worsening symptoms Followup with your primary care provider, call tomorrow to make a followup appointment Follow-up with a surgeon for removal of cystic lesion below your right ear. Prescriptions: Naproxen [Naprosyn 250 Nmg Tablet] 1 tab PO BID #14 tablet Referrals: [facility] [Provider Group] - Follow up as needed
== END 2018-11-05 10:01 | disposition home or self-care (01) ==
LOC: ER 08:52
DX: L72.0 Epidermal cyst (principal); R68.89 Other general symptoms and signs
CPT/HCPCS: 99282

== ENCOUNTER 2018-11-14 16:27 | Emergency (ER) | payer SELFPAY ==
[2018-11-14] MEDS ORDERED: KETOROLAC TROMETHAMINE INJ/PF 30 MG/1 ML SDV IV ONE (16:57)
--- NOTE | 2018-11-14 17:01 | ER Document Report ---
ED Medical Screen (RME) - General Chief Complaint: Sore Throat Stated Complaint: THROAT PAIN Time Seen by Provider: 11/14/18 16:45 TRAVEL OUTSIDE OF THE [place] IN LAST 30 DAYS: No - HPI Notes: 11/14/18 16:58 Patient is a 23-year-old male who presents emergency department complaining of multiple complaints including right upper quadrant pain, left lower chest pain, left ankle pain, and sore throat. Patient states that most of his symptoms have been intermittent over the last couple months. Denies any headache, fever, neck pain, palpitations, syncope, cough, shortness of breath, wheeze, dyspnea, loss of control of bowel or bladder, numbness/tingling, muscle paralysis/weakness, or rash. I have treated and performed a rapid initial assessment of this patient. A comprehensive ED assessment and evaluation of the patient, analysis of test results and completion of medical decision making process will be conducted by additional ED providers. PHYSICAL EXAMINATION: GENERAL: Well-appearing, well-nourished and in no acute distress. A&Ox4. Answers questions appropriately. LUNGS: Breath sounds clear to auscultation bilaterally and equal. No wheezes rales or rhonchi. HEART: Regular rate and rhythm without murmurs, rubs, gallops. ABDOMEN: Soft, nondistended abdomen. No guarding, no rebound. Normal bowel sounds present. No CVA tenderness bilaterally. + mild epigastric/RUQ tenderness Extremities: No cyanosis, clubbing, or edema b/l. NEUROLOGICAL: Normal speech, normal gait. PSYCH: Normal mood, normal affect. - Related Data Allergies/Adverse Reactions: amoxicillin Allergy (Intermediate, Verified 11/05/18 08:53) Urticaria Past Medical History - Social History Chew tobacco use (# tins/day): No Frequency of alcohol use: Rare Drug Abuse: Marijuana Renal/ Medical History: Denies: Hx Peritoneal Dialysis - Immunizations Immunizations up to date: Yes Hx Diphtheria, Pertussis, Tetanus Vaccination: Yes Physical Exam - Vital signs Vitals: Temp Pulse Resp BP Pulse Ox 99.6 F 71 18 122/76 97 11/14/18 16:37 11/14/18 16:37 11/14/18 16:37 11/14/18 16:37 11/14/18 16:37 Course - Vital Signs Vital signs: Temp Pulse Resp BP Pulse Ox 99.6 F 71 18 122/76 97 11/14/18 16:37 11/14/18 16:37 11/14/18 16:37 11/14/18 16:37 11/14/18 16:37
--- NOTE | 2018-11-14 17:19 | RADIOLOGY REPORT (SQ) ---
EXAM DESCRIPTION: CHEST SINGLE VIEW COMPLETED DATE/TIME: 11/14/2018 5:10 pm REASON FOR STUDY: left lower CP COMPARISON: AP chest 08/19/2018 EXAM PARAMETERS: NUMBER OF VIEWS: One view. TECHNIQUE: Single frontal radiographic view of the chest acquired. RADIATION DOSE: NA LIMITATIONS: None. FINDINGS: LUNGS AND PLEURA: No opacities, masses or pneumothorax. No pleural effusion. MEDIASTINUM AND HILAR STRUCTURES: No masses. Contour normal. HEART AND VASCULAR STRUCTURES: Heart normal in size. Normal vasculature. BONES: No acute findings. HARDWARE: None in the chest. OTHER: No other significant finding. IMPRESSION: NO ACUTE RADIOGRAPHIC FINDING IN THE CHEST. TECHNICAL DOCUMENTATION: JOB ID: [id number] [employer]- All Rights Reserved Reading location - IP/workstation name: [email or web address]
--- NOTE | 2018-11-14 17:21 | RADIOLOGY REPORT (SQ) ---
EXAM DESCRIPTION: KUB/ABDOMEN (SINGLE VIEW) COMPLETED DATE/TIME: 11/14/2018 5:10 pm REASON FOR STUDY: abd pain COMPARISON: CT abdomen pelvis 10/23/2018 NUMBER OF VIEWS: One view. TECHNIQUE: Supine radiographic image of the abdomen acquired. LIMITATIONS: None. FINDINGS: BOWEL GAS PATTERN: Normal bowel gas pattern. No dilated loops. CALCIFICATIONS: No suspicious calcifications. SOFT TISSUES: No gross mass or suggestion of organomegaly. HARDWARE: None in the abdomen. BONES: No acute fracture. No worrisome bone lesions. OTHER: No other significant finding. IMPRESSION: NO RADIOGRAPHIC EVIDENCE FOR ACUTE ABDOMINAL DISEASE. TECHNICAL DOCUMENTATION: JOB ID: [id number] [employer]- All Rights Reserved Reading location - IP/workstation name: [email or web address]
[2018-11-14 17:27] LABS: ABSOLUTE EOSINOPHILS # (AUTO) 0.3 10^3/uL (0.0-0.6); ABSOLUTE LYMPHOCYTES (AUTO) 1.9 10^3/uL (0.5-4.7); ABSOLUTE MONOCYTES (AUTO) 0.6 10^3/uL (0.1-1.4); ABSOLUTE NEUT (AUTO) 4.8 10^3/uL (1.7-8.2); BASOPHILS % (AUTO) 0.5 % (0-2); EOSINOPHILS % (AUTO) 4.2 % (0-6); HEMATOCRIT 45.2 % (37.9-51.0); HEMOGLOBIN 15.9 g/dL (13.5-17.0); LYMPHOCYTES % (AUTO) 25.2 % (13-45); MEAN CORPUSCULAR HEMOGLOBIN 29.6 pg (27.0-33.4); MEAN CORPUSCULAR HGB CONC 35.2 g/dL (32.0-36.0); MEAN CORPUSCULAR VOLUME 84 fl (80-97); MONOCYTES % (AUTO) 7.9 % (3-13); PLATELET COUNT 240 10^3/uL (150-450); RED BLOOD COUNT 5.37 10^6/uL (4.35-5.55); RED CELL DISTRIBUTION WIDTH 13.7 % (11.5-14.0); SEGMENTED NEUTROPHILS % (AUTO) 62.2 % (42-78); TOTAL CELLS COUNTED % (AUTO) 100 %; WHITE BLOOD COUNT 7.7 10^3/uL (4.0-10.5)
[2018-11-14] MEDS ORDERED: HYDROCODONE/ACETAMINOPHEN 5-325 MG TABLET PO ONE (17:45)
[2018-11-14 17:48] LABS: ALANINE AMINOTRANSFERASE 21 U/L (21-72); ALBUMIN 4.8 g/dL (3.5-5.0); ALKALINE PHOSPHATASE 64 U/L (38-126); ANION GAP 8 (5-19); ASPARTATE AMINO TRANSFERASE 37 U/L (17-59); BILIRUBIN,DIRECT 0.2 mg/dL (0.0-0.4); BILIRUBIN,TOTAL 0.6 mg/dL (0.2-1.3); BLOOD UREA NITROGEN 14 mg/dL (7-20); CALCIUM 9.5 mg/dL (8.4-10.2); CARBON DIOXIDE 29 mmol/L (22-30); CHLORIDE 104 mmol/L (98-107); GLUCOSE 93 mg/dL (75-110); LIPASE 54.9 U/L (23-300); POTASSIUM 3.9 mmol/L (3.6-5.0); SODIUM 140.5 mmol/L (137-145); TOTAL PROTEIN 7.9 g/dL (6.3-8.2)
--- NOTE | 2018-11-14 17:49 | ER Document Report ---
ED General - General Chief Complaint: Sore Throat Stated Complaint: THROAT PAIN Time Seen by Provider: 11/14/18 16:45 Information source: Patient TRAVEL OUTSIDE OF THE [place] IN LAST 30 DAYS: No - HPI Patient complains to provider of: Left-sided chest pain, pain in the abdomen under the right ribs, muscle bunny Onset: Other - Nothing acute Onset/Duration: Gradual Quality of pain: Achy Severity: Moderate Associated symptoms: denies: Chills, Fever Exacerbated by: Movement Relieved by: Denies Similar symptoms previously: Yes Recently seen / treated by doctor: No Notes: 23-year-old -Indian male comes in today with several nonacute problems. Ongoing pain in the left chest wall. Also having ongoing pain in the right upp er quadrant. Patient is complaining also of just generalized polyarthralgias. Does not mention any redness or swelling. Does not have any fever or unintentional weight loss. - Related Data Allergies/Adverse Reactions: amoxicillin Allergy (Intermediate, Verified 11/05/18 08:53) Urticaria Past Medical History - General Information source: Patient - Social History Smoking Status: Current Every Day Smoker Chew tobacco use (# tins/day): No Frequency of alcohol use: Rare Drug Abuse: Marijuana Family History: Reviewed & Not Pertinent Patient has suicidal ideation: No Patient has homicidal ideation: No Renal/ Medical History: Denies: Hx Peritoneal Dialysis - Immunizations Immunizations up to date: Yes Hx Diphtheria, Pertussis, Tetanus Vaccination: Yes Review of Systems - Review of Systems Notes: Constitutional: No fevers. No chills. EENT: No eye redness. No eye pain. No ear pain. No sore throat. Cardiovascular: No chest pain. No palpitations. Left chest wall pain Respiratory: No cough. No shortness of breath. No respiratory distress. Gastrointestinal: No nausea, vomiting, or diarrhea. Right upper quadrant abdominal pain Genitourinary: Atraumatic. No lesions. No pain. No discharge. Musculoskeletal: Atraumatic. No swelling. No deformities. Myalgias, arthralgias Skin: No rash or lesions. Lymphatic: No swollen lymph nodes. Neurologic: No headache. No syncope. Psychiatric: Depressed affect without suicidal or homicidal ideation Physical Exam - Vital signs Vitals: Temp Pulse Resp BP Pulse Ox 99.6 F 71 18 122/76 97 11/14/18 16:37 11/14/18 16:37 11/14/18 16:37 11/14/18 16:37 11/14/18 16:37 - Notes Notes: General: Well-developed, well-nourished. In no acute distress. Non-toxic appearing. Cardiac: Well-perfused. Regular rate and rhythm. No murmurs, rubs, or gallops. Pulmonary: No respiratory distress. No cyanosis. Bilateral lung fiels are clear to auscultation. Abdominal: Non-distended. Non-rigid. Bowels sounds are present in all four quadrants. No guarding or rebound. Tenderness to palpation of the right upper quadrant HEENT: Head is atraumatic. Conjunctivae not reddened. No tearing. PERRL. EOMI. Orbits atraumatic. No periorbital swelling or erythema. Oropharynx is without erythema, swelling, or exudates. Neck: Supple. No adenopathy. No meningismus. Dermatologic: Warm with good turgor. No rash. Atraumatic. Chest: Atraumatic. No chest wall tenderness to palpation. Musculoskeletal: Moves all extremities well. No range of motion deficits. no muscular or joint tenderness. No paraspinal muscle tenderness. no midline spinal tenderness or step-off. There is no peripheral edema or erythema. Genitourinary: Examination deferred Neurologic: No gross neurologic deficits. Psychiatric: Somewhat flat affect. Slightly depressed. Negative for suicidal or homicidal ideation Course - Re-evaluation Re-evalutation: 11/14/18 17:49 Patient has been evaluated. Appropriate orders have been placed. Patient will be routinely reassessed as results start to come in. Patient has several nonac [place] complaints. Each of them will be addressed in the typical fashion. Strongly doubt there is going to be anything acute. Patient seems chronically depressed and I think given his multiple trips in and out of the ER that more than likely we will not find anything. He would probably benefit from strong follow-up for usual health maintenance issues. 11/14/18 19:48 Patient labs are all within normal limits except for mildly elevated CPK. This could be indicative of some sort of inflammatory process. Nevertheless, patient needs follow-up with primary care to have all of his different problems addressed. - Vital Signs Vital signs: Temp Pulse Resp BP Pulse Ox 99.6 F 71 18 122/76 97 11/14/18 16:37 11/14/18 16:37 11/14/18 16:37 11/14/18 16:37 11/14/18 16:37 - Laboratory Result Diagrams: 11/14/18 17:14 11/14/18 17:14 Laboratory results interpreted by me: 11/14/18 17:14 Creatine Kinase 574 H - EKG Interpretation by Me EKG shows normal: Sinus rhythm Rate: Normal Rhythm: NSR Discharge - Discharge Clinical Impression: Musculoskeletal pain, Sore throat, Elevated CPK Abdominal pain Qualifiers: Abdominal location: right upper quadrant Qualified Code(s): R10.11 - Right upper quadrant pain Disposition: HOME, SELF-CARE Instructions: Abdominal Pain ([facility]), Oral Narcotic Medication ([facility]), Sore Throat ([facility]) Additional Instructions: Please follow-up with the clinic for check further evaluation of your problem presented today. Prescriptions: Tramadol HCl/Acetaminophen [Ultracet 37.5 mg/325 mg Tablet] 1 each PO Q6HP PRN #12 tablet PRN Reason: Prednisone [Deltasone 20 mg Tablet] 2 tab PO DAILY 5 Days #10 tablet Referrals: [facility] [Provider Group] - Follow up tomorrow
--- NOTE | 2018-11-14 19:40 | RADIOLOGY REPORT (SQ) ---
EXAM DESCRIPTION: U/S ABDOMEN COMPLETE W/O DOP COMPLETED DATE/TIME: 11/14/2018 7:19 pm REASON FOR STUDY: RUQ and LUQ pain COMPARISON: Abdominal ultrasound 08/19/2018 CT abdomen pelvis 10/31/2018 TECHNIQUE: Dynamic and static grayscale images acquired of the abdomen and recorded on PACS. Additio nal selected color Doppler and spectral images recorded. Note: Study does not meet criteria for complete doppler/duplex scan LIMITATIONS: Midline bowel gas FINDINGS: PANCREAS: Not well seen LIVER: No masses. Echotexture normal. LIVER VASCULATURE: Normal directional flow of the main portal vein and hepatic veins. GALLBLADDER: No stones. Normal wall thickness. No pericholecystic fluid. ULTRASOUND-DETECTED JACOBS'S SIGN: Negative. INTRAHEPATIC DUCTS AND COMMON DUCT: CBD and intrahepatic ducts normal caliber. No filling defects. INFERIOR VENA CAVA: Normal flow. AORTA: No aneurysm. RIGHT KIDNEY: Normal size. Normal echogenicity. No solid or suspicious masses. No hydronephros is. No calcifications. LEFT KIDNEY: Normal size. Normal echogenicity. No solid or suspicious masses. No hydronephrosi s. No calcifications. SPLEEN: Normal size. No solid masses. PERITONEAL AND PLEURAL SPACES: No ascites or effusions. OTHER: No other significant finding. IMPRESSION: Pancreas not well seen. No gallstones, gallbladder wall thickening or pericholecystic fluid. No hydronephrosis. TECHNICAL DOCUMENTATION: JOB ID: [id number] [employer]- All Rights Reserved Reading location - IP/workstation name: [email or web address]
[2018-11-14 20:22] VITALS: BP 133/88
--- NOTE | 2018-11-14 23:18 | EKG REPORT ---
SEVERITY:- NORMAL ECG - SINUS RHYTHM : Confirmed by: Tanya Christie MD 14-Nov-2018 23:18:19
== END 2018-11-14 20:22 | disposition home or self-care (01) ==
LOC: ER 16:27
DX: J02.9 Acute pharyngitis, unspecified (principal); R10.11 Right upper quadrant pain; R07.89 Other chest pain; R74.8 Abnormal levels of other serum enzymes; M25.50 Pain in unspecified joint; F17.200 Nicotine dependence, unspecified, uncomplicated; Z88.0 Allergy status to penicillin
CPT/HCPCS: 93005; 99283; 96374; 36415; 87070; 87880; 82550; 83690; 85025; 86308; 80053; 71045; 74018; 76700; 93010; J1885

== ENCOUNTER 2018-11-21 01:25 | Emergency (ER) | payer SELFPAY ==
[2018-11-21] MEDS ORDERED: ONDANSETRON 4 MG TAB.RAPDIS ONE (02:33)
[2018-11-21] MEDS ORDERED: ONDANSETRON 4 MG TAB.RAPDIS PO ONE (02:34)
--- NOTE | 2018-11-21 03:53 | ER Document Report ---
ED General - General Chief Complaint: Accidental Overdose Stated Complaint: ACCIDENTIAL OVERDOSE Time Seen by Provider: 11/21/18 01:49 Notes: Patient is a 23-year-old male without chronic medical problems who presents after accidentally ingesting 50 mg of zolpidem at approximately 2300. Patient states that he took for 12.5 mg tablets thinking that they were ibuprofen. He states approximate 1 hour thereafter he became confused, tired and did have one episode of nonbilious vomiting. States that he looked up what he had taken and decided to come to the hospital for evaluation. He currently states that he feels somewhat lightheaded, fatigued and nauseous. Nothing seems to improve or worsen his symptoms. No history of similar events in the past. Denies any additional coingestions. TRAVEL OUTSIDE OF THE [place] IN LAST 30 DAYS: No - Related Data Allergies/Adverse Reactions: amoxicillin Allergy (Intermediate, Verified 11/05/18 08:53) Urticaria Past Medical History - General Information source: Patient - Social History Smoking Status: Never Smoker Frequency of alcohol use: None Drug Abuse: Marijuana Lives with: Friend Family History: Reviewed & Not Pertinent Patient has suicidal ideation: No Patient has homicidal ideation: No Renal/ Medical History: Denies: Hx Peritoneal Dialysis - Immunizations Immunizations up to date: Yes Hx Diphtheria, Pertussis, Tetanus Vaccination: Yes Review of Systems - Review of Systems Notes: Constitutional: Negative for fever. Positive for fatigue HENT: Negative for sore throat. Eyes: Negative for visual changes. Cardiovascular: Negative for chest pain. Positive for lightheadedness Respiratory: Negative for shortness of breath. Gastrointestinal: Negative for abdominal pain, positive for nausea and vomiting Genitourinary: Negative for dysuria. Musculoskeletal: Negative for back pain. Skin: Negative for rash. Neurological: Negative for headaches, weakness or numbness. 10 point ROS negative except as marked above and in HPI. Physical Exam - Vital signs Vitals: Temp Pulse Resp BP Pulse Ox 98.0 F 75 16 143/76 H 97 11/21/18 01:33 11/21/18 01:33 11/21/18 01:33 11/21/18 01:33 11/21/18 01:33 Interpretation: Hypertensive Notes: PHYSICAL EXAMINATION: GENERAL: Well-appearing, well-nourished and in no acute distress. HEAD: Atraumatic, normocephalic. EYES: Pupils equal round and reactive to light, extraocular movements intact, sclera anicteric, conjunctiva are normal. ENT: nares patent, oropharynx clear without exudates. Moist mucous membranes. NECK: Normal range of motion, supple without lymphadenopathy LUNGS: Breath sounds clear to auscultation bilaterally and equal. No wheezes rales or rhonchi. HEART: Regular rate and rhythm without murmurs ABDOMEN: Soft, nontender, normoactive bowel sounds. No guarding, no rebound. No masses appreciated. EXTREMITIES: Normal range of motion, no pitting or edema. No cyanosis. NEUROLOGICAL: No focal neurological deficits. Moves all extremities spontaneously and on command. PSYCH: Normal mood, normal affect. SKIN: Warm, Dry, normal turgor, no rashes or lesions noted. Course - Re-evaluation Re-evalutation: 11/21/18 03:51 Patient presents after ingesting 50 mg of zolpidem. Poison control was contacted. Did recommend 2 hours of clinical monitoring which was completed. No events noted. Patient has maintained saturations, remained awake for most of the time in the emergency department. Did eventually fall asleep but was able to be awoken easily with voice. He had no additional clinical findings on exam. No indication for labs or imaging. Medication safety reviewed. At this time will discharge with return precautions and follow-up recommendations. Verbal discharge instructions given a the bedside and opportunity for questions given. Medication warnings reviewed. Patient is in agreement with this plan and has verbalized understanding of return precautions and the need for primary care follow-up in the next 24-72 hours. - Vital Signs Vital signs: Temp Pulse Resp BP Pulse Ox 98.0 F 75 16 115/58 L 96 11/21/18 01:33 11/21/18 01:33 11/21/18 02:31 11/21/18 03:01 11/21/18 03:01 Discharge - Discharge Clinical Impression: Medication overdose Qualifiers: Encounter type: initial encounter Injury intent: accidental or unintentional Qualified Code(s): T50.901A - Poisoning by unspecified drugs, medicaments and biological substances, accidental (unintentional), initial encounter Nausea and vomiting Qualifiers: Vomiting type: unspecified Vomiting Intractability: non-intractable Qualified Code(s): R11.2 - Nausea with vomiting, unspecified Condition: Good Additional Instructions: Please never take medications that are not yours. Also if you are uncertain of what of medication is do not take it. Please return to the emergency department immediately if you develop any symptoms that are new or concerning to you including ongoing vomiting, passing out, chest pain, fever, or any other symptoms that are concerning to you.
[2018-11-21 06:07] VITALS: BP 137/66
== END 2018-11-21 06:07 | disposition home or self-care (01) ==
LOC: ER 01:25
DX: T42.6X1A Poisoning by other antiepileptic and sedative-hypnotic drugs, accidental (unintentional), initial encounter (principal); R11.2 Nausea with vomiting, unspecified; R41.0 Disorientation, unspecified; R53.83 Other fatigue; R42 Dizziness and giddiness; F12.10 Cannabis abuse, uncomplicated; Z88.0 Allergy status to penicillin
CPT/HCPCS: 99283; S0119

== ENCOUNTER 2018-11-21 16:07 | Emergency (ER) | payer SELFPAY ==
[2018-11-21] MEDS ORDERED: ACETAMINOPHEN 325 MG TABLET PO ONE (20:28)
[2018-11-21] MEDS ORDERED: IBUPROFEN 600 MG TABLET PO ONE (20:28)
--- NOTE | 2018-11-21 20:29 | ER Document Report ---
ED General - General Chief Complaint: Abdominal Pain Stated Complaint: URINARY ISSUE, STOMACH PAIN, HEADACHE Time Seen by Provider: 11/21/18 20:12 Notes: Patient is a 23-year-old male who presents the emergency department with a chief complaint of abdominal pain and penile discharge. He woke up this morning and ended up having burning and itching at his urethra. He is also having abdominal pain, some headaches and a sore throat. His abdominal pain is in his lower abdomen, and states it is a sore pain. He is homosexual and admits to having oral and anal sex within the last few weeks. He does admit to some penile discharge. He denies any fever, chills, shortness of breath, nausea, vomiting, or diarrhea. He states that he feels the same way he did last time he was diagnosed with gonorrhea and chlamydia. TRAVEL OUTSIDE OF THE [place] IN LAST 30 DAYS: No - Related Data Allergies/Adverse Reactions: amoxicillin Allergy (Intermediate, Verified 11/05/18 08:53) Urticaria Past Medical History - Social History Smoking Status: Unknown if Ever Smoked Frequency of alcohol use: None Drug Abuse: Prescription drugs Family History: Reviewed & Not Pertinent Patient has suicidal ideation: No Patient has homicidal ideation: No Renal/ Medical History: Denies: Hx Peritoneal Dialysis - Immunizations Immunizations up to date: Yes Hx Diphtheria, Pertussis, Tetanus Vaccination: Yes Review of Systems - Review of Systems Notes: REVIEW OF SYSTEMS: CONSTITUTIONAL : Denies recent illness. Denies recent unintentional weight loss. Denies fever, chills, or sweats. EENT: Denies eye, ear, throat, or mouth pain, discharge, or symptoms. Denies nasal or sinus congestion. CARDIOVASCULAR: Denies chest pain. RESPIRATORY: Denies shortness of breath, cough, congestion, difficulty breathing, or wheezing. GASTROINTESTINAL: Denies nausea, vomiting, and diarrhea. Denies abdominal pain. Denies constipation. GENITOURINARY: See HPI MUSCULOSKELETAL: Denies neck and back pain. Denies joint pain or swelling. SKIN: Denies rash, itchiness, or lesions HEMATOLOGIC : Denies easy bruising or bleeding. LYMPHATIC: Denies swollen, painful, enlarged glands. NEUROLOGICAL: Denies no numbness or tingling denies weakness. Denies headache. Denies altered mental status. Denies alteration in speech. PSYCHIATRIC: Denies stress, anxiety, alteration in sleep patterns, or depression. All other systems reviewed and negative. Physical Exam - Notes Notes: PHYSICAL EXAMINATION: GENERAL: Appears well, healthy, well-nourished, no acute distress. HEAD: Normocephalic, atraumatic. EYES: PERRL, conjunctiva normal, all extraocular movements intact, sclera nonicteric ENT: Moist mucous membranes. NECK: Supple, no noticeable swelling, redness, rash. Normal range of motion. LUNGS: Equal breath sounds bilaterally and clear to auscultation. No wheezes rales or rhonchi. CARDIOVASCULAR: S1-S2, regular rate, regular rhythm. Radial pulses 2+, normal. ABDOMEN: Normoactive bowel sounds. Soft, nontender, no guarding, no rebound tenderness, and no masses palpated. EXTREMITIES: Normal strength and range of motion, no pitting or edema. No cyanosis. NEUROLOGICAL: Moves all extremities upon command. Strength 5/5 in all extremities. PSYCH: Normal mood, normal affect. SKIN: Warm, dry. No rash, lesions, ulcerations noted. Normal skin turgor. Course - Re-evaluation Re-evalutation: Patient's abdominal exam is benign at this time. He has been in the emergency department multiple times for the same complaint. Since he does have complaints of penile discharge, I have given him the option of being empirically treated for gonorrhea and chlamydia since the results take a few hours to result. He has decided that he would like to be treated for gonorrhea and chlamydia. Have a very low suspicion for appendicitis, testicular torsion, or any life- threatening etiology at this time. Verbal discharge instructions were given to the patient. They verbalized understanding. They are stable for discharge. Discharge - Discharge Clinical Impression: Penile discharge, Lower abdominal pain Condition: Stable Disposition: HOME, SELF-CARE Additional Instructions: You were seen here in the emergency department for burning and itching in your urethra and lower abdominal pain. You are being treated for gonorrhea and chlamydia, as your symptoms are similar to having gonorrhea and chlamydia. You will be called if your results are positive. Please take Motrin 600 mg and Tylenol 1000 mg every 6 hours as needed for your headache. If you have any abdominal pain, difficulty breathing, or have any symptoms that are worrisome to you, please return to the emergency department.
--- NOTE | 2018-11-21 20:39 | ER Document Report ---
ED General - General Chief Complaint: Abdominal Pain Stated Complaint: URINARY ISSUE, STOMACH PAIN, HEADACHE Time Seen by Provider: 11/21/18 20:12 Notes: Patient is a 23-year-old male who presents the emergency department with a chief complaint of abdominal pain and penile discharge. He woke up this morning and ended up having burning and itching at his urethra. He is also having abdominal pain, some headaches and a sore throat. He is homosexual and admits to having oral and anal sex within the last few weeks. He does admit to some penile discharge. TRAVEL OUTSIDE OF THE [place] IN LAST 30 DAYS: No - Related Data Allergies/Adverse Reactions: amoxicillin Allergy (Intermediate, Verified 11/05/18 08:53) Urticaria Past Medical History - Social History Smoking Status: Unknown if Ever Smoked Frequency of alcohol use: None Drug Abuse: Prescription drugs Family History: Reviewed & Not Pertinent Patient has suicidal ideation: No Patient has homicidal ideation: No Renal/ Medical History: Denies: Hx Peritoneal Dialysis - Immunizations Immunizations up to date: Yes Hx Diphtheria, Pertussis, Tetanus Vaccination: Yes
[2018-11-21] MEDS ORDERED: LIDOCAINE 1% INJ-PF (10 MG/ML) 30 ML SDV INJ ONE (21:49)
[2018-11-21] MEDS ORDERED: CEFTRIAXONE INJ 250 MG VIAL IM ONE (21:49)
[2018-11-21] MEDS ORDERED: AZITHROMYCIN 250 MG TABLET PO ONE (21:49)
[2018-11-21 22:53] LABS: CHLAM PCR NOT DETECTED (NOT DETECT); GON PCR NOT DETECTED (NOT DETECT)
== END 2018-11-21 22:33 | disposition home or self-care (01) ==
LOC: ER 16:07
DX: R10.30 Lower abdominal pain, unspecified (principal); R36.9 Urethral discharge, unspecified; L29.9 Pruritus, unspecified; R51 Headache; J02.9 Acute pharyngitis, unspecified; Z88.0 Allergy status to penicillin
CPT/HCPCS: 99283; 96372; 87491; 87591; J3490; J0696

== ENCOUNTER 2018-12-24 03:45 | Emergency (ER) | payer SELFPAY ==
[2018-12-24 05:05] LABS: APPEARANCE,URINE CLEAR; BILIRUBIN,URINE NEGATIVE (NEGATIVE); COLOR,URINE YELLOW; GLUCOSE, URINE NEGATIVE (NEGATIVE); KETONES,URINE NEGATIVE (NEGATIVE); LEUKOCYTE ESTERASE,URINE NEGATIVE (NEGATIVE); NITRITE,URINE NEGATIVE (NEGATIVE); PROTEIN,URINE NEGATIVE (NEGATIVE)
--- NOTE | 2018-12-24 05:40 | ER Document Report ---
ED General - General Chief Complaint: Sore Throat Stated Complaint: THROAT, STOMACH PAIN Time Seen by Provider: 12/24/18 04:36 Notes: Patient is a 23-year-old male who presents with complaints of sore throat, some cramping pain in his lower abdomen, and burning when he urinates. Said that home pain started first and then he developed some sore throat followed by the burning with urination. He is sexually active. He does do anal intercourse. He also admits to participating in oral sex. Denies any fevers. No vomiting. Some nausea. He denies any chronic medical problems and says he is otherwise healthy. No rashes. No abnormal discharge from his penis. TRAVEL OUTSIDE OF THE [place] IN LAST 30 DAYS: No - Related Data Allergies/Adverse Reactions: amoxicillin Allergy (Intermediate, Verified 11/05/18 08:53) Urticaria Past Medical History - Social History Smoking Status: Current Every Day Smoker Chew tobacco use (# tins/day): No Frequency of alcohol use: None Drug Abuse: None Family History: Reviewed & Not Pertinent Patient has suicidal ideation: No Patient has homicidal ideation: No Renal/ Medical History: Denies: Hx Peritoneal Dialysis - Immunizations Immunizations up to date: Yes Hx Diphtheria, Pertussis, Tetanus Vaccination: Yes Review of Systems - Review of Systems Notes: My Normal Review Basic REVIEW OF SYSTEMS: CONSTITUTIONAL : Denies fever, chills, or sweats. Denies recent illness. EENT: Sore throat. RESPIRATORY: Denies cough, cold, or chest congestion. Denies shortness of breath, difficulty breathing, or wheezing. GASTROINTESTINAL: Mild lower abdominal pain. Denies nausea, vomiting, or diarrhea. GENITOURINARY: Dysuria MUSCULOSKELETAL: Denies neck or back pain or joint pain or swelling. SKIN: Denies rash or skin lesions. NEUROLOGICAL: Denies altered mental status or loss of consciousness. Denies headache. Denies weakness or paralysis or loss of use of either side. Denies problems with gait or speech. Denies sensory or motor loss. ALL OTHER SYSTEMS REVIEWED AND NEGATIVE. Physical Exam - Vital signs Vitals: Temp Pulse Resp BP Pulse Ox 97.8 F 57 L 17 131/70 H 98 12/24/18 03:52 12/24/18 03:52 12/24/18 03:52 12/24/18 03:52 12/24/18 03:52 - Notes Notes: General Appearance: Well nourished, alert, cooperative, no acute distress, no obvious discomfort. Well-appearing. Vitals: reviewed, See vital signs table. Head: no swelling or tenderness to the head Eyes: PERRL, EOMI, Conjuctiva clear Mouth: No decreasd moisture Throat: No tonsillar inflammation, No airway obstruction, No lymphadenopathy Neck: Supple, no neck tenderness Lungs: No wheezing, No rales, No rhonci, No accessory muscle use, good air excha nge bilaterally. Heart: Normal rate, Regular rythm, No murmur, no rub Abdomen: Normal BS, soft, No rigidity, some mild periumbilical tenderness to palpation., No guarding, no rebound, no abdominal masses, no organomegaly Genital: Normal external genitalia without any abnormal discharge or redness, or swelling. Extremities: strength 5/5 in all extremities, good pulses in all extremities, no swelling or tenderness in the extremities, no edema. Skin: warm, dry, appropriate color, no rash Neuro: speech clear, oriented x 3, normal affect, responds appropriately to questions. Course - Re-evaluation Re-evalutation: 12/24/18 06:14 Patient's urinalysis does not show evidence of urinary tract infection. This makes STD infection less likely however does not rule out. Based on his symptoms and his history I do suspect he probably has STD. Is based on the fact that he has had sexual activity with multiple partners that include both anal and oral sex. This would make sense with the dysuria and sore throat. Clinically looks well. Vital signs are stable. He is in no distress. His abdominal exam is very benign. I feel he safe to be discharged home. I will empirically cover him with ceftriaxone as well as azithromycin. I informed him that if his symptoms are not resolved in 3 days and he must return to ER for reevaluation. Patient to return to ER immediately if he has fevers, vomiting, or feels that he is worsening. Patient agrees with plan and will be discharged home. Dictation of this chart was performed using voice recognition software; therefore, there may be some unintended grammatical errors. - Vital Signs Vital signs: Temp Pulse Resp BP Pulse Ox 97.8 F 57 L 17 131/70 H 98 12/24/18 03:52 12/24/18 03:52 12/24/18 03:52 12/24/18 03:52 12/24/18 03:52 - Laboratory Laboratory results interpreted by me: 12/24/18 04:45 Urine Urobilinogen 2.0 H Discharge - Discharge Clinical Impression: Dysuria, Sore throat Abdominal pain Qualifiers: Abdominal location: periumbilical Qualified Code(s): R10.33 - Periumbilical pain Condition: Good Disposition: HOME, SELF-CARE Additional Instructions: Based on your symptoms I suspect you may have a gonorrhea or chlamydial infec tion. We will treat you with antibiotics here for this. Please avoid sexual activity until your symptoms have completely resolved. Please inform your sexual partners to get tested as well. If your symptoms have not resolved in 3 days then he should return to the ER for evaluation. Your urine is being sent for culture to look for evidence of gonorrhea and chlamydia. You can call the phone number [phone] to get your results. These return to the ER immediately if you have worsening pain, fevers, any rash, or if you feel unwell in any way.
[2018-12-24] MEDS ORDERED: CEFTRIAXONE INJ 250 MG VIAL IM ONE (06:08)
[2018-12-24] MEDS ORDERED: AZITHROMYCIN 250 MG TABLET PO ONE (06:08)
[2018-12-24] MEDS ORDERED: LIDOCAINE 1% INJ-PF (10 MG/ML) 30 ML SDV INJ ONE (06:18)
[2018-12-24 06:34] LABS: GON PCR NOT DETECTED (NOT DETECT)
[2018-12-24 06:35] VITALS: BP 111/51
[2018-12-24 06:50] LABS: CHLAM PCR NOT DETECTED (NOT DETECT)
== END 2018-12-24 06:42 | disposition home or self-care (01) ==
LOC: ER 03:45
DX: J02.9 Acute pharyngitis, unspecified (principal); R10.33 Periumbilical pain; R30.0 Dysuria; F17.200 Nicotine dependence, unspecified, uncomplicated; Z88.0 Allergy status to penicillin
CPT/HCPCS: 99283; 96372; 81001; 87491; 87591; J3490; J0696

== ENCOUNTER 2019-01-04 23:26 | Emergency (ER) | payer SELFPAY ==
[2019-01-05] MEDS ORDERED: AZITHROMYCIN 250 MG TABLET PO ONE (00:44)
[2019-01-05] MEDS ORDERED: CEFTRIAXONE INJ 250 MG VIAL IM ONE (00:44)
[2019-01-05] MEDS ORDERED: KETOROLAC TROMETHAMINE 60 MG/2 ML SDV IM ONE (00:45)
--- NOTE | 2019-01-05 01:30 | ER Document Report ---
HPI - HPI Patient complains to provider of: Dysuria Time Seen by Provider: 01/05/19 00:44 Pain Level: 5 Context: Patient is a 23-year-old male presents to the emergency department for generalized lower back pain. Patient states he is also had some penile discharge and itching. Patient states he has partaken in anal sexual relations recently. Patient states he was recently tested for HIV and syphilis they were both negative. Patient denies fever, vomiting, abdominal pain. Past Medical History - General Information source: Patient - Social History Smoking Status: Current Every Day Smoker Chew tobacco use (# tins/day): No Frequency of alcohol use: None Drug Abuse: None Family History: Reviewed & Not Pertinent Patient has suicidal ideation: No Patient has homicidal ideation: No Renal/ Medical History: Denies: Hx Peritoneal Dialysis - Immunizations Immunizations up to date: Yes Hx Diphtheria, Pertussis, Tetanus Vaccination: Yes Vertical Provider Document - CONSTITUTIONAL Agree With Documented VS: Yes Notes: GENERAL: Alert, interacts well. No acute distress. HEAD: Normocephalic, atraumatic. EYES: Pupils equal, round, and reactive to light. Extraocular movements intact. ENT: Oral mucosa moist, tongue midline. NECK: Full range of motion. Supple. Trachea midline. LUNGS: Clear to auscultation bilaterally, no wheezes, rales, or rhonchi. No respiratory distress. HEART: Regular rate and rhythm. No murmur ABDOMEN: Soft, non-tender. Non-distended. Bowel sounds present in all 4 quadrants. EXTREMITIES: Moves all 4 extremities spontaneously. No edema, normal radial and dorsalis pedis pulses bilaterally. No cyanosis. BACK: no cervical, thoracic, lumbar midline tenderness. No saddle anesthesia, normal distal neurovascular exam. Generalized bilateral lumbar and lower back pain, dull. NEUROLOGICAL: Alert and oriented x3. Normal speech. cranial nerves II through XII grossly intact PSYCH: Normal affect, normal mood. SKIN: Warm, dry, normal turgor. No rashes or lesions noted. Pelvis: Crew Clerk Carmelina RN, circumcised penis no active discharge noted at the meatus, bilateral testicles descended nonerythematous, nontender bilaterally. - INFECTION CONTROL TRAVEL OUTSIDE OF THE [place] IN LAST 30 DAYS: No Course - Re-evaluation Re-evalutation: In discussing this case with my attending Dr. Valentin Beltran it appears that the patient has been to this facility multiple times recently for the same complaint. His gonorrhea and Chlamydia testing always comes back negative. His urine results always show no signs of infection. Patient denies any rectal pain or abnormal discharge. Discussed with Dr. Beltran treating for proctitis due to patient's sexual history. Discussed close follow-up with [facility] for then referral to urology. Patient does not have insurance. Also in reviewing past charts it looks like patient has been referred to gastroenterology multiple times. Discussed with patient at length following up at [facility] would be the first step to get him the care that he needs. Patient states he overall feels a lot better after treatments in the emergency room, stable for discharge. - Vital Signs Vital signs: Temp Pulse Resp BP Pulse Ox 98.6 F 64 16 148/77 H 100 01/04/19 23:40 01/04/19 23:40 01/04/19 23:40 01/04/19 23:40 01/04/19 23:40 Discharge - Discharge Clinical Impression: Proctitis, Dysuria Condition: Stable Disposition: HOME, SELF-CARE Additional Instructions: You have been seen and treated in the emergency department for your generalized lower back pain and pain when you P. Your urine reveals no signs of infection. You have been prophylactically treated for gonorrhea and chlamydia. Please take antibiotics as prescribed for proctitis. Also as we discussed you should follow-up at [facility] for continued care and then referral to urology. Please make sure you take antibiotics as prescribed and return to the emergency room should you have any other concerning symptoms. Prescriptions: Doxycycline Hyclate 100 mg PO BID #14 capsule Referrals: [facility] [Provider Group] - Follow up as needed
[2019-01-05 01:45] LABS: APPEARANCE,URINE SLIGHTLY-CLOUDY; BILIRUBIN,URINE NEGATIVE (NEGATIVE); CALCIUM OXALATE CRYSTALS,URINE FEW /HPF; COLOR,URINE YELLOW; GLUCOSE, URINE NEGATIVE (NEGATIVE); KETONES,URINE TRACE mg/dL (NEGATIVE); LEUKOCYTE ESTERASE,URINE NEGATIVE (NEGATIVE); NITRITE,URINE NEGATIVE (NEGATIVE); PROTEIN,URINE NEGATIVE (NEGATIVE); URINE SPECIFIC GRAVITY 1.026
[2019-01-05 02:39] VITALS: BP 160/84
[2019-01-05 03:05] LABS: CHLAM PCR NOT DETECTED (NOT DETECT); GON PCR NOT DETECTED (NOT DETECT)
== END 2019-01-05 02:00 | disposition home or self-care (01) ==
LOC: ER 23:26
DX: K62.89 Other specified diseases of anus and rectum (principal); R30.0 Dysuria; R36.9 Urethral discharge, unspecified; L29.9 Pruritus, unspecified; M54.5 Low back pain; F17.200 Nicotine dependence, unspecified, uncomplicated
CPT/HCPCS: 99283; 96372; 87086; 81001; 87491; 87591; J1885; J0696

== ENCOUNTER 2019-01-05 12:25 | Emergency (ER) | payer SELFPAY ==
[2019-01-05 13:04] VITALS: BP 140/87
--- NOTE | 2019-01-05 13:39 | ER Document Report ---
ED Medical Screen (RME) - General Chief Complaint: Abdominal Pain Stated Complaint: MEDICATION REFILL Time Seen by Provider: 01/05/19 13:21 Mode of Arrival: Ambulatory Information source: Patient Notes: Patient presents requesting a new prescription for antibiotics. Patient was seen here yesterday and treated for proctitis with doxycycline. Patient states he has had doxycycline in the past and it caused him to develop some spots to his face. Patient states that he has continued to have abdominal pain and flank pain. Patient also complains of left eye pain and trouble seeing out of the left eye. I have greeted and performed a rapid initial assessment of this patient. A comprehensive ED assessment and evaluation of the patient, analysis of test results and completion of the medical decision making process will be conducted by additional ED providers. TRAVEL OUTSIDE OF THE [place] IN LAST 30 DAYS: No - Related Data Allergies/Adverse Reactions: amoxicillin Allergy (Intermediate, Verified 01/05/19 12:26) Urticaria Penicillins Allergy (Verified 01/05/19 12:26) Past Medical History Renal/ Medical History: Denies: Hx Peritoneal Dialysis - Immunizations Immunizations up to date: Yes Hx Diphtheria, Pertussis, Tetanus Vaccination: Yes Physical Exam - Vital signs Vitals: Temp Pulse Resp BP Pulse Ox 97.9 F 96 14 140/87 H 99 01/05/19 13:02 01/05/19 13:02 01/05/19 13:02 01/05/19 13:02 01/05/19 13:02 - Abdominal Tenderness: Tender - Diffuse lower abdominal tenderness, bilateral flank tenderness Course - Vital Signs Vital signs: Temp Pulse Resp BP Pulse Ox 97.9 F 96 14 140/87 H 99 01/05/19 13:02 01/05/19 13:02 01/05/19 13:02 01/05/19 13:02 01/05/19 13:02
[2019-01-05 14:13] LABS: ABSOLUTE EOSINOPHILS # (AUTO) 0.5 10^3/uL (0.0-0.6); ABSOLUTE LYMPHOCYTES (AUTO) 1.6 10^3/uL (0.5-4.7); ABSOLUTE MONOCYTES (AUTO) 0.5 10^3/uL (0.1-1.4); ABSOLUTE NEUT (AUTO) 3.6 10^3/uL (1.7-8.2); BASOPHILS % (AUTO) 0.7 % (0-2); HEMATOCRIT 46.5 % (37.9-51.0); HEMOGLOBIN 16.2 g/dL (13.5-17.0); LYMPHOCYTES % (AUTO) 25.7 % (13-45); MEAN CORPUSCULAR HEMOGLOBIN 29.3 pg (27.0-33.4); MEAN CORPUSCULAR HGB CONC 34.7 g/dL (32.0-36.0); MEAN CORPUSCULAR VOLUME 85 fl (80-97); MONOCYTES % (AUTO) 8.2 % (3-13); PLATELET COUNT 266 10^3/uL (150-450); RED BLOOD COUNT 5.51 10^6/uL (4.35-5.55); SEGMENTED NEUTROPHILS % (AUTO) 57.4 % (42-78); TOTAL CELLS COUNTED % (AUTO) 100 %; WHITE BLOOD COUNT 6.3 10^3/uL (4.0-10.5)
[2019-01-05 14:14] LABS: APPEARANCE,URINE CLEAR; BILIRUBIN,URINE NEGATIVE (NEGATIVE); COLOR,URINE AMBER; GLUCOSE, URINE NEGATIVE (NEGATIVE); KETONES,URINE NEGATIVE (NEGATIVE); LEUKOCYTE ESTERASE,URINE NEGATIVE (NEGATIVE); NITRITE,URINE NEGATIVE (NEGATIVE); PROTEIN,URINE 30 mg/dL (NEGATIVE); URINE SPECIFIC GRAVITY 1.027
[2019-01-05 14:32] LABS: ALANINE AMINOTRANSFERASE 28 U/L (21-72); ALBUMIN 4.5 g/dL (3.5-5.0); ALKALINE PHOSPHATASE 59 U/L (38-126); ANION GAP 9 (5-19); ASPARTATE AMINO TRANSFERASE 21 U/L (17-59); BILIRUBIN,DIRECT 0.3 mg/dL (0.0-0.4); BILIRUBIN,TOTAL 0.9 mg/dL (0.2-1.3); BLOOD UREA NITROGEN 16 mg/dL (7-20); CALCIUM 10.2 mg/dL (8.4-10.2); CARBON DIOXIDE 25 mmol/L (22-30); CHLORIDE 106 mmol/L (98-107); GLUCOSE 72 mg/dL (75-110); POTASSIUM 3.9 mmol/L (3.6-5.0); SODIUM 139.8 mmol/L (137-145); TOTAL PROTEIN 7.7 g/dL (6.3-8.2)
--- NOTE | 2019-01-05 14:52 | ER Document Report ---
Addendum entered and electronically signed by CAROL ANN MATUTE PA-C 01/05/19 15:29: Course - Re-evaluation Re-evalutation: 01/05/19 15:28 Patient seems to be having some abdominal discomfort, which I think is most likely secondary to use of doxycycline. He is not having any abdominal pain last night. He does not have any focal findings on his abdominal exam. We will switch him to Bactrim DS see if he has a bit better tolerance for that over the doxycycline. Creatinine is minimally bumped above baseline. Discussed this with patient and he will get this followed up when he gets to [facility] to get everything else checked out. Encouraged him to drink additional fluids to see if that will help. He is not been actively vomiting. - Vital Signs Vital signs: Temp Pulse Resp BP Pulse Ox 97.9 F 96 14 140/87 H 99 01/05/19 13:02 01/05/19 13:02 01/05/19 13:02 01/05/19 13:02 01/05/19 13:02 - Laboratory Result Diagrams: 01/05/19 13:59 01/05/19 13:59 Laboratory results interpreted by me: 01/05/19 01/05/19 01/05/19 13:59 13:59 13:59 Eosinophils % 8.0 H Creatinine 1.30 H Glucose 72 L Urine Protein 30 H Urine Urobilinogen 4.0 H Addendum entered and electronically signed by CAROL ANN MATUTE PA-C 01/05/19 15:1 3: Discharge - Discharge Clinical Impression: Proctitis, Medication intolerance, Itching of male genitalia, Elevated serum creatinine Condition: Good Disposition: HOME, SELF-CARE Instructions: Anal Itching ([facility]), Sulfa Medications ([facility]), Kidney Injury ([facility]) Additional Instructions: You have had multiple visits to the emergency room for your urogenital complaints. You really need to follow-up in the [facility] for further workup and evaluation. We will switch your antibiotics today to Bactrim DS and hopefully will not have the same type of reaction to this medication. You may need further evaluation and treatment by urologist at some point. Your kidney test is slightly above normal. Please follow-up to have this rechecked within the next week. Prescriptions: Tramadol HCl [Ultram 50 mg Tablet] 50 mg PO Q6HP PRN #12 tab PRN Reason: Sulfamethoxazole/Trimethoprim [Bactrim Ds Tablet] 1 each PO BID #20 tablet Referrals: [facility] [Provider Group] - Follow up as needed Print Language: American Original Note: ED General - General Chief Complaint: Abdominal Pain Stated Complaint: MEDICATION REFILL Time Seen by Provider: 01/05/19 13:21 Mode of Arrival: Ambulatory Information source: Patient TRAVEL OUTSIDE OF THE [place] IN LAST 30 DAYS: No - HPI Patient complains to provider of: Penile itching, dysuria, difficulty urinating, low back and rectal pain. Onset: Other Quality of pain: Pressure Severity: Severe Pain Level: 5 Associated symptoms: denies: Chills, Fever Exacerbated by: Denies Relieved by: Denies Similar symptoms previously: No Recently seen / treated by doctor: No Notes: 23-year-old -[place] fernández male here for low back pain, dysuria, penile itching, testicular pain. From reviewing his visit last night, it seems he has had multiple visits here with symptoms concerning for STDs. Apparently he has been tested multiple times for gonorrhea and chlamydia and each time has tested negative for both. He was seen here last night and was decided to treat him symptomatically for proctitis. He was given a prescription for doxycycline. Coming in today complaining that it is the same antibiotic is taken in the past has caused him to break out and have stomachaches. He does not have any fevers or chills today although in the past he says had low-grade fevers and muscle aches. He tells us that he has been tested for HIV as recently as 3 months ago and was negative. - Related Data Allergies/Adverse Reactions: amoxicillin Allergy (Intermediate, Verified 01/05/19 12:26) Urticaria Penicillins Allergy (Verified 01/05/19 12:26) Past Medical History - General Information source: Patient - Social History Smoking Status: Current Every Day Smoker Chew tobacco use (# tins/day): No Drug Abuse: Marijuana Family History: Reviewed & Not Pertinent Patient has suicidal ideation: No Patient has homicidal ideation: No Renal/ Medical History: Denies: Hx Peritoneal Dialysis - Immunizations Immunizations up to date: Yes Hx Diphtheria, Pertussis, Tetanus Vaccination: Yes Review of Systems - Review of Systems Notes: Constitutional: No fevers. No chills. EENT: No eye redness. No eye pain. No ear pain. No sore throat. Cardiovascular: No chest pain. No palpitations. Respiratory: No cough. No shortness of breath. No respiratory distress. Gastrointestinal: No abdominal pain. No nausea, vomiting, or diarrhea. Genitourinary: Positive for milky urethral discharge. Positive for itching penis and testicles. Musculoskeletal: Positive for low back pain Skin: No rash or lesions. Lymphatic: No swollen lymph nodes. Neurologic: No headache. No syncope. Psychiatric: No suicidal or homicidal ideation. Physical Exam - Vital signs Vitals: Temp Pulse Resp BP Pulse Ox 97.9 F 96 14 140/87 H 99 01/05/19 13:02 01/05/19 13:02 01/05/19 13:02 01/05/19 13:02 01/05/19 13:02 - HEENT Visual acuity- Right eye: 20/15 Visual acuity- Left eye: 20/15 Visual acuity- Both eyes: 20/15 Course - Re-evaluation Re-evalutation: 01/05/19 14:57 Blood blood work looks good. Creatinine is slightly bumped above baseline. Given his bumped kidney functions we will switch to Bactrim instead of Cipro. He can stop doxycycline. In any event, he needs follow-up with [facility] as well as a urologist which we do not have habilitation specialist today. - Vital Signs Vital signs: Temp Pulse Resp BP Pulse Ox 97.9 F 96 14 140/87 H 99 01/05/19 13:02 01/05/19 13:02 01/05/19 13:02 01/05/19 13:02 01/05/19 13:02 - Laboratory Result Diagrams: 01/05/19 13:59 01/05/19 13:59 Laboratory results interpreted by me: 01/05/19 01/05/19 01/05/19 13:59 13:59 13:59 Eosinophils % 8.0 H Creatinine 1.30 H Glucose 72 L Urine Protein 30 H Urine Urobilinogen 4.0 H Discharge - Discharge Clinical Impression: Proctitis, Medication intolerance, Itching of male genitalia Condition: Good Disposition: HOME, SELF-CARE Instructions: Sulfa Medications ([facility]), Anal Itching ([facility]) Additional Instructions: He had multiple visits to the emergency room for your urogenital complaints. You really need to follow-up in the [facility] for further workup and evaluation. We will switch your antibiotics today to Bactrim DS and hopefully will not have the same type of reaction to this medication. You may need furt her evaluation and treatment by urologist at some point. Prescriptions: Tramadol HCl [Ultram 50 mg Tablet] 50 mg PO Q6HP PRN #12 tab PRN Reason: Sulfamethoxazole/Trimethoprim [Bactrim Ds Tablet] 1 each PO BID #20 tablet Referrals: [facility] [Provider Group] - Follow up as needed Print Language: American
[2019-01-05] MEDS ORDERED: IBUPROFEN 800 MG TABLET PO ONE (14:56)
== END 2019-01-05 15:20 | disposition home or self-care (01) ==
LOC: ER 12:25
DX: K62.89 Other specified diseases of anus and rectum (principal); T36.4X5A Adverse effect of tetracyclines, initial encounter; L29.3 Anogenital pruritus, unspecified; R10.9 Unspecified abdominal pain
CPT/HCPCS: 36415; 80053; 81001; 85025; 99283

== ENCOUNTER 2019-01-23 23:35 | Emergency (ER) | payer SELFPAY ==
[2019-01-24] MEDS ORDERED: LIDOCAINE 1% INJ-PF (10 MG/ML) 30 ML SDV INJ ONE (00:50)
[2019-01-24] MEDS ORDERED: DIPH/PERTUSS(ACELL)/TETANUS VAC/PF 0.5 ML SYR (>=10YO) IM ONE (00:50)
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
[2019-01-24 02:46] VITALS: BP 139/80
== END 2019-01-24 02:52 | disposition home or self-care (01) ==
LOC: ER 23:35
DX: S41.112A Laceration without foreign body of left upper arm, initial encounter (principal); S31.119A Laceration without foreign body of abdominal wall, unspecified quadrant without penetration into peritoneal cavity, initial encounter; S21.212A Laceration without foreign body of left back wall of thorax without penetration into thoracic cavity, initial encounter; X99.1XXA Assault by knife, initial encounter
CPT/HCPCS: 99283; 90471; 90715; 12002; J3490

== ENCOUNTER 2019-02-01 09:43 | Emergency (ER) | payer SELFPAY ==
[2019-02-01 09:53] VITALS: BP 141/69
--- NOTE | 2019-02-01 10:26 | ER Document Report ---
HPI - HPI Time Seen by Provider: 02/01/19 10:07 Pain Level: 3 Notes: Patient is a 23-year-old male presenting with complaint of request for suture removal. Patient has sutures in his left upper arm as well as his left thoracic back area. Sutures have been in place for 10 days. Patient denies any signs and symptoms of infection. - EENT EENT: DENIES: Sore Throat, Ear Pain, Eye problems - CARDIOVASCULAR Cardiovascular: DENIES: Chest pain - RESPIRATORY Respiratory: DENIES: Trouble Breathing, Coughing - GASTROINTESTINAL Gastrointestinal: DENIES: Abdominal Pain, Black / Bloody Stools - URINARY Urinary: DENIES: Dysuria, Urgency, Frequency Past Medical History - General Information source: Patient - Social History Smoking Status: Former Smoker Frequency of alcohol use: None Drug Abuse: None Family History: Reviewed & Not Pertinent Patient has suicidal ideation: No Patient has homicidal ideation: No - Medical History Medical History: Negative Renal/ Medical History: Denies: Hx Peritoneal Dialysis Surgical Hx: Negative - Immunizations Immunizations up to date: Yes Hx Diphtheria, Pertussis, Tetanus Vaccination: Yes Vertical Provider Document - CONSTITUTIONAL Notes: PHYSICAL EXAMINATION: GENERAL: Well-appearing, well-nourished and in no acute distress. HEAD: Atraumatic, normocephalic. EYES: Pupils equal round extraocular movements intact, conjunctiva are normal. ENT: Nares patent NECK: Normal range of motion LUNGS: No respiratory distress Musculoskeletal: Normal range of motion NEUROLOGICAL: Normal speech, normal gait. PSYCH: Normal mood, normal affect. SKIN: Warm, Dry, normal turgor, no rashes or lesions noted. Sutures in place to both left upper arm as well as left thoracic area of back have healed well, no surrounding erythema or drainage noted. - INFECTION CONTROL TRAVEL OUTSIDE OF THE [place] IN LAST 30 DAYS: No Course - Re-evaluation Re-evalutation: Sutures removed, wound appears to be healing well. Patient given discharge instructions and sent home in stable condition. - Vital Signs Vital signs: Temp Pulse Resp BP Pulse Ox 98.2 F 64 16 141/69 H 96 02/01/19 09:50 02/01/19 09:50 02/01/19 09:50 02/01/19 09:50 02/01/19 09:50 Discharge - Discharge Clinical Impression: Encounter for removal of sutures Condition: Stable Disposition: HOME, SELF-CARE Additional Instructions: Your sutures were removed today. Please continue to apply Neosporin or triple antibiotic ointment to the area once or twice daily. Watch for signs of infections to include increased redness, foul-smelling drainage or increased pain. Return to the emergency department if any of the symptoms occur.
== END 2019-02-01 10:44 | disposition home or self-care (01) ==
LOC: ER 09:43
DX: S41.112D Laceration without foreign body of left upper arm, subsequent encounter (principal); X58.XXXD Exposure to other specified factors, subsequent encounter; Z87.891 Personal history of nicotine dependence

== ENCOUNTER 2019-03-01 19:38 | Emergency (ER) | payer SELFPAY ==
[2019-03-01 20:34] VITALS: BP 132/74
== END 2019-03-02 00:30 | disposition left against medical advice (07) ==
LOC: ER 19:38
DX: Z53.21 Procedure and treatment not carried out due to patient leaving prior to being seen by health care provider (principal)

== ENCOUNTER 2019-03-06 12:07 | Emergency (ER) | payer SELFPAY ==
[2019-03-06 12:12] VITALS: BP 135/67
--- NOTE | 2019-03-06 12:31 | ER Document Report ---
HPI - HPI Patient complains to provider of: Bilateral eye irritation Time Seen by Provider: 03/06/19 12:23 Onset: Other - Month Onset/Duration: Persistent Context: Patient presents the emergency department with complaints of bilateral eye irritation for approximately 1 month. He reports symptoms since he started working at the [employer]. Reports he has had some white discharge from both eyes and feels like his eyes are twitching. Denies fever vomiting diarrhea. Does not wear contacts. Reports he has been taking Benadryl without relief of symptoms Associated Symptoms: None Exacerbated by: Denies Relieved by: Denies Similar symptoms previously: No Recently seen / treated by doctor: No Past Medical History - General Information source: Patient - Social History Smoking Status: Current Some Day Smoker Cigarette use (# per day): Yes Frequency of alcohol use: None Drug Abuse: None Occupation: [employer] Family History: Reviewed & Not Pertinent Patient has suicidal ideation: No Patient has homicidal ideation: No - Medical History Medical History: Negative Renal/ Medical History: Denies: Hx Peritoneal Dialysis Surgical Hx: Negative - Immunizations Immunizations up to date: Yes Hx Diphtheria, Pertussis, Tetanus Vaccination: Yes Vertical Provider Document - CONSTITUTIONAL Agree With Documented VS: Yes Exam Limitations: No Limitations General Appearance: WD/WN, No Apparent Distress - INFECTION CONTROL TRAVEL OUTSIDE OF THE [place] IN LAST 30 DAYS: No - HEENT HEENT: Atraumatic, Normal ENT Exam, Normocephalic, PERRLA. negative: Conjuctival Injection, Pharyngeal Exudate, Pharyngeal Tenderness, Pharyngeal Erythema, Tympanic Membrane Red, Tympanic Membrane Bulging - NECK Neck: Normal Inspection, Supple - RESPIRATORY Respiratory: Breath Sounds Normal, No Respiratory Distress - CARDIOVASCULAR Cardiovascular: Regular Rate, Regular Rhythm - GI/ABDOMEN Gastrointestinal: Abdomen Soft - MUSCULOSKELETAL/EXTREMETIES Musculoskeletal/Extremeties: MORENA WALLIS - NEURO Level of Consciousness: Awake, Alert, Appropriate Motor/Sensory: No Motor Deficit - DERM Integumentary: Warm, Dry Course - Re-evaluation Re-evalutation: 03/06/19 12:34 Patient was instructed on other OTC antihistamines he may want to try instead of Benadryl. He was instructed to follow-up with a loan assistant for continued symptoms. Patient looks nontoxic no drainage noted from the eyes eyes are clear. CYNTHIA Nagy spent an extended amount of time trying to educated patient on drainage, OTC anti histamine and importance ophthalmology evaluation Dictation of this chart was performed using voice recognition software; therefore, there may be some unintended grammatical errors. 03/06/19 12:37 - Vital Signs Vital signs: Temp Pulse Resp BP Pulse Ox 98.2 F 65 18 135/67 H 96 03/06/19 12:11 03/06/19 12:11 03/06/19 12:11 03/06/19 12:11 03/06/19 12:11 Discharge - Discharge Clinical Impression: Irritation of both eyes Condition: Stable Disposition: HOME, SELF-CARE Instructions: OTC Antihistamines ([facility]) Additional Instructions: *You have been evaluated for bilateral eye irritation *Take [id number] antihistamine as discussed *Good hand washing *Follow up with an loan assistant this week. *Return to ED for worsening condition, changes, needs Forms: Return to Work
== END 2019-03-06 12:39 | disposition home or self-care (01) ==
LOC: ER 12:07
DX: H57.89 Other specified disorders of eye and adnexa (principal); F17.200 Nicotine dependence, unspecified, uncomplicated
CPT/HCPCS: 99282

== ENCOUNTER 2019-03-17 19:35 | Emergency (ER) | payer SELFPAY ==
--- NOTE | 2019-03-17 21:20 | ER Document Report ---
ED Medical Screen (RME) - General Chief Complaint: Drainage from Eye Stated Complaint: EYES CRUSTY, NEED SCRIPT FILLED Time Seen by Provider: 03/17/19 21:18 Mode of Arrival: Ambulatory Information source: Patient Notes: 23-year-old male presents to ED for complaint of yellow-green drainage from both eyes for several days. He states he is also had a runny nose and congestion. He states he needs a prescription for his drainage from his eyes. He does not have redness to the conjunctivae. Patient is alert oriented respirations regular and unlabored speaking in full sentences. He states he has no past medical or surgical history. He states he does not smoke cigarettes or drink alcohol but he does smoke pot. He works at the [employer]. Lungs are clear to auscultation. I have greeted and performed a rapid initial assessment of this patient. A comprehensive ED assessment and evaluation of the patient, analysis of test results and completion of medical decision making process will be conducted by an additional ED providers. Dictation of this chart was performed using voice recognition software; therefore, there may be some unintended grammatical errors. TRAVEL OUTSIDE OF THE [place] IN LAST 30 DAYS: No - Related Data Allergies/Adverse Reactions: amoxicillin Allergy (Intermediate, Verified 03/17/19 19:39) Urticaria Penicillins Allergy (Verified 03/17/19 19:39) Past Medical History Renal/ Medical History: Denies: Hx Peritoneal Dialysis - Immunizations Immunizations up to date: Yes Hx Diphtheria, Pertussis, Tetanus Vaccination: Yes Physical Exam - Vital signs Vitals: Temp Pulse Resp BP Pulse Ox 98.2 F 81 16 134/69 H 97 03/17/19 19:49 03/17/19 19:49 03/17/19 19:49 03/17/19 19:49 03/17/19 19:49 Course - Vital Signs Vital signs: Temp Pulse Resp BP Pulse Ox 98.2 F 81 16 134/69 H 97 03/17/19 19:49 03/17/19 19:49 03/17/19 19:49 03/17/19 19:49 03/17/19 19:49
[2019-03-17] MEDS ORDERED: TETRACAINE HCL 0.5% OPH SOLN 4 ML OD ONE (22:17)
--- NOTE | 2019-03-17 22:49 | ER Document Report ---
ED General - General Chief Complaint: Drainage from Eye Stated Complaint: EYES CRUSTY, NEED SCRIPT FILLED Time Seen by Provider: 03/17/19 21:18 Mode of Arrival: Ambulatory Notes: 23-year-old male presents the emergency department with 2 separate complaints. Initial complaint is that he has been having yellowish-greenish discharge from both his eyes that is worst in the morning. States it is associated with blurry vision but denies any pain. Patient is not a contact lens wear. Patient states that he got a prescription medication from his friend that has antibiotics in it and his discharge improved but then it worsened when he ran out of the medication. Patient states that the medication is called "pinkeye relief". He believes it has antibiotic in it. Denies any pain, fevers or injury. Denies any associated sore throat, runny nose or earache, denies any prior similar symptoms. Secondarily patient complains of left testicular pain for the past 4 days associated with a rash on his penis that is burning in nature. Denies any penile discharge. Admits new sexual partners, states it is unprotected sex. Patient is concerned he may have a sexually transmitted disease. TRAVEL OUTSIDE OF THE [place] IN LAST 30 DAYS: No - Related Data Allergies/Adverse Reactions: amoxicillin Allergy (Intermediate, Verified 03/17/19 22:45) Urticaria Penicillins Allergy (Verified 03/17/19 22:45) Past Medical History - General Information source: Patient - Social History Smoking Status: Former Smoker Chew tobacco use (# tins/day): No Frequency of alcohol use: None Drug Abuse: Marijuana Family History: Reviewed & Not Pertinent Renal/ Medical History: Denies: Hx Peritoneal Dialysis - Immunizations Immunizations up to date: Yes Hx Diphtheria, Pertussis, Tetanus Vaccination: Yes Review of Systems - Review of Systems Constitutional: No symptoms reported EENT: See HPI Cardiovascular: No symptoms reported Respiratory: No symptoms reported Genitourinary: See HPI Male Genitourinary: See HPI -: Yes All other systems reviewed and negative Physical Exam - Vital signs Vitals: Temp Pulse Resp BP Pulse Ox 98.2 F 81 16 134/69 H 97 03/17/19 19:49 03/17/19 19:49 03/17/19 19:49 03/17/19 19:49 03/17/19 19:49 - Notes Notes: GENERAL: Alert, interacts well. No acute distress. HEAD: Normocephalic, atraumatic EYES: Pupils equal, round and reactive to light, extraocular movements intact. Slit-lamp examination does not reveal any floor seen uptake, there is mild conjunctival injection, no hyphema, no corneal abrasion, no foreign body, no hypopyon. No cell and flare in the anterior chamber. ENT: Oral mucosa moist, tongue midline. NECK: Full range of motion, supple, trachea midline. LUNGS: Clear to auscultation bilaterally, no wheezes, rales or rhonchi, no respiratory distress. HEART: Regular rate and rhythm, no murmurs, gallops, rubs. ABDOMEN: Soft, nontender, nondistended, bowel sounds present in all 4 quadrants. EXTREMITIES: Moves all 4 extremities spontaneously, no edema, radial and dorsalis pedis pulses 2/4 bilaterally. No cyanosis. NEUROLOGICAL: Alert and oriented x3, normal speech, no facial droop. PSYCH: Normal mood, normal affect. SKIN: Warm, Dry, normal turgor, no rashes or lesions noted. GENITAL: Exam chaperoned by Alexandra GONZALEZ, normal external genitalia, circumcised, no blisters, vesicles or rashes or lesions noted. No discharge, no testicular tenderness or penile tenderness, no swelling noted. Course - Re-evaluation Re-evalutation: 03/18/19 00:13 Testicular ultrasound ordered due to left testicular pain, shows normal blood flow identified bilaterally and bilateral testicular microlithiasis, recommend follow-up ultrasound in 6 to 12 months in patients with risk factors such as personal or family history of germ cell tumor, maldescent or undescended testes, orchidopexy or testicular atrophy. Patient informed of these follow-up recommendations. I did look up "pink eye relief drops" these are homeopathic medications that really have no active ingredient in them and likely have function to simply as sterile saline wetting drops. I have encouraged the patient to purchase regular [id number] wetting drops such as natural tears for his eyes. No indication for antibiotics for his eyes at this time, suspect allergic conjunctivitis. Recommend daily antiallergy medication such as Claritin. Still awaiting results of gonorrhea and Chlamydia testing. Patient declined to discharged home with follow-up phone call, prefers to await the results of gonorrhea and Chlamydia testing. 03/18/19 02:40 Gonorrhea and chlamydia urine testing is negative. - Vital Signs Vital signs: Temp Pulse Resp BP Pulse Ox 97.7 F 59 L 18 123/68 98 03/18/19 01:55 03/18/19 01:55 03/18/19 01:55 03/18/19 01:55 03/18/19 01:55 Discharge - Discharge Clinical Impression: Left testicular pain Allergic conjunctivitis Qualifiers: Laterality: bilateral Qualified Code(s): H10.13 - Acute atopic conjunctivitis, bilateral Condition: Stable Disposition: HOME, SELF-CARE Additional Instructions: Conjunctivitis There is no evidence of infection today. The eyedrops that you have been using are homeopathic eyedrops, this means that there is not actually any active ingredient. They have functioned as wetting drops for your eyes. You are welcome to buy more "pinkeye relief drops" [id number], they do not require a prescription. I would recommend however instead using regular saline rewetting drops such as artificial tears. Should you develop increasing eye pain, severe swelling, decreased vision, or fail to improve as expected, please return for re-examination. Your testicular exam showed something that is called microlithiasis. This can be a normal finding however if you ever had surgery in your testicles or if you are testicles did not fully descend when you were born or if you have a family history of testicular or ovarian cancer you will need to have your ultrasound repeated in 6 months to a year. Prescriptions: Dextran 70/Hypromellose [Artificial Tears Drops] 15 ml OD QIDP PRN #1 drops PRN Reason: Loratadine [Claritin 10 mg Tablet] 10 mg PO DAILY #30 tablet
--- NOTE | 2019-03-17 23:29 | RADIOLOGY REPORT (SQ) ---
EXAM DESCRIPTION: US SCROTUM COMPLETED DATE/TME: 03/17/2019 22:45 CLINICAL HISTORY: 23 years Male, left testicular pain x 4 days COMPARISON: None. TECHNIQUE: Real-time sonographic images of the scrotal contents obtained using a linear multi hertz transducer. Color and spectral Doppler imaging was also obtained. FINDINGS: Testicles: The right testicle measures 4.4 x 2.8 x 2.6 cm. The left testicle measures 4.4 x 2.7 x 2.2 cm. No solid intratesticular mass identified. Bilateral scattered punctate foci of increased echogenicity. Epididymis:No abnormalities of the epididymis. Hydrocele:No hydrocele. Blood flow:Normal arterial and venous blood flow identified bilaterally. Other:No additional findings. IMPRESSION: 1. Normal blood flow identified bilaterally. 2. Bilateral testicular microlithiasis. Follow-up US in 6-12 months recommended in patients with risk factors: Personal/family history of germ cell tumor, maldescent or undescended testes, orchidopexy, testicular atrophy. Otherwise no imaging follow-up recommended.
[2019-03-18 01:31] LABS: CHLAM PCR NOT DETECTED (NOT DETECT); GON PCR NOT DETECTED (NOT DETECT)
[2019-03-18 01:55] VITALS: BP 123/68
== END 2019-03-18 03:02 | disposition home or self-care (01) ==
LOC: ER 19:35
DX: H10.13 Acute atopic conjunctivitis, bilateral (principal); N50.89 Other specified disorders of the male genital organs; N50.812 Left testicular pain; Z20.2 Contact with and (suspected) exposure to infections with a predominantly sexual mode of transmission; F12.10 Cannabis abuse, uncomplicated; Z88.0 Allergy status to penicillin; Z87.891 Personal history of nicotine dependence
CPT/HCPCS: 99284; 87491; 87591; 76870; 93976; J3490